=== PATIENT | female | born 1955 | race Caucasian/White ===

== ENCOUNTER → 2017-05-14 | Outpatient (CLI) | payer BC ==
[~2017-05-14] MED LIST: CLON0.5T3 PO; CLTP PO; CMD5 PO; CYM60 PO; HYDR12.55 OR; MEDLIST; OMEG10007 PO; OXYC-57 PO; OXYSR10 PO; [UNRECOGNIZED DRUG - OTHER] PO
[2017-05-14 09:29] LABS: BASO % 0.7 %; BASO ABS # 0.04 K/uL (0-0.2); COMPLETE YES; EOS % 1.5 %; HEMATOCRIT 40.6 % (37-47); IG% 0.2 %; LYMPH % 30.2 %; LYMPH ABS # 1.78 K/uL (1.2-3.4); MEAN CELL VOLUME 96.9 fL (80-100); MEAN CORPUSCULAR HEMOGLOBIN 33.2 pg (25-34); MEAN CORPUSCULAR HGB CONC 34.2 g/dl (32-36); MEAN PLATELET VOLUME 9.8 fL (7.4-10.4); MONO % 8.5 %; NEUT % 58.9 %; PLATELET COUNT 232 K/uL (130-400); RED BLOOD COUNT 4.19 M/uL (4.2-5.4); WHITE BLOOD COUNT 5.89 K/uL (4.8-10.8)
[2017-05-14 09:39] LABS: INR 0.9 (0.9-1.1); PROTHROMBIN TIME (PATIENT) 10.1 SECONDS (9.0-12.0)
--- NOTE | 2017-05-14 09:43 | DIAGNOSTIC IMAGING REPORT ---
FUSION CT SINUSES W/O CLINICAL HISTORY: 61 years-old Female presenting with chronic sinusitis, previous sinus surgery, bilateral sphenoid sinus mucosal thickening. TECHNIQUE: Multidetector CT of the sinuses was performed without the use of intravenous contrast. IV contrast: None. A dose lowering technique was used consistent with the principles of ALARA (as low as reasonably achievable). COMPARISON: 01/06/2013. CT DOSE (mGy.cm): The estimated cumulative dose is 634.05 mGy.cm. FINDINGS: Clinical Lab Clerk topogram: Unremarkable. Postsurgical changes of bilateral maxillary antrostomies. Ostiomeatal units widely patent bilaterally. Layering fluid in aerated secretions in the right maxillary sinus. Mild mucosal thickening in the left maxillary sinus. Mild mucosal thickening also noted in the sphenoid sinuses. Frontal sinuses and ethmoid air cells clear. Mastoid air cells clear. Nasal septum midline. Turbinates normal. Mild asymmetric sclerosis and wall thickening of the lateral wall of the right maxillary sinus likely indicates chronic inflammation. Orbits normal. No dehiscence of the optic canals. Limited intracranial evaluation within normal limits. Degenerative changes of the right temporomandibular joint. Upper cervical spine normal. IMPRESSION: 1. Layering aerated secretions in the right maxillary sinus could be compatible with acute sinusitis. Additional evidence of chronic sinusitis of the right maxillary sinus. 2. Postsurgical changes of bilateral maxillary antrostomies. 3. Scattered mucosal thickening in the sinuses as described above. Electronically signed by: Iglesia Herman M.D. 05/14/2017 9:42 AM Dictated Date/Time: 05/14/2017 9:34 AM
[2017-05-14 09:44] LABS: POTASSIUM 3.7 mmol/L (3.5-5.1)
--- NOTE | 2017-05-14 10:03 | DIAGNOSTIC IMAGING REPORT ---
CHEST 2 VIEWS ROUTINE CLINICAL HISTORY: Z01.818 Visit for pre-operative [id number] preoperative evaluation COMPARISON STUDY: No previous studies for comparison. FINDINGS: The bones soft tissues and hemidiaphragms are normal. The cardiomediastinal silhouette is normal. The lungs are clear. The pulmonary vasculature is normal. IMPRESSION: Negative chest. The above report was generated using voice recognition software. It may contain grammatical, syntax or spelling errors. Electronically signed by: Jaylan Eubanks M.D. 05/14/2017 10:01 AM Dictated Date/Time: 05/14/2017 10:00 AM
== END | disposition home or self-care (01) ==
LOC: C.CTS 09:00
DX: Z01.818 Encounter for other preprocedural examination (principal); J32.9 Chronic sinusitis, unspecified; J34.3 Hypertrophy of nasal turbinates

== ENCOUNTER → 2017-05-25 | Day surgery (SDC) | payer BC ==
[2017-05-20 07:54] VITALS: Ht 180.3 cm; Wt 65.5 kg
[~2017-05-25] VITALS: Ht 180.3 cm; Wt 65.5 kg
[~2017-05-25] MED LIST changes: +ATROPINE SULFATE 0.1 MG/ML 5ML SYR IV PRN; +CLINDAMYCIN PHOS 150 MG/ML 2 ML VIAL IV SCH; -CLTP PO; -CMD5 PO; +DEXAMETHASONE SOD INJ 4 MG/ML VIAL ONE; +EpHEDrine SULFATE 50MG/5ML SYR ONE; +EpHEDrine SULFATE INJ 50 MG/ML AMP IV PRN; +EpINEphrine INJ 1MG/ML AMP 1 MG/ML AMP ONE; +FENTANYL CITRATE INJ 50 MCG/1 ML 2 ML VIAL IV PRN; +FENTANYL CITRATE INJ 50 MCG/1 ML 2 ML VIAL ONE; +GLYCOPYRROLATE INJ 0.2 MG/ML VIAL ONE; -HYDR12.55 OR; +HYDROCODONE/ACETAMOPHEN 5/325MG TAB PO PRN; +LACTATED RINGER'S 1000ML 1,000 ML IV SCH; +LACTATED RINGER'S 1000ML 500 ML IV SCH; +LIDOCAINE 4% MPF SOAK 5 ML = 1 DOSE TOP ONE; +LIDOCAINE HCL 2% 2 ML VIAL (20MG/ML) ONE; +LIDOCAINE/EPINEPHRINE 1% INJ 50 ML VIAL ONE; -MEDLIST; +MIDAZOLAM HCL 1 MG/ML 2ML VIAL ONE; +NEOSTIGMINE METHYLSULFATE 5 MG/5 ML SYR ONE; +ONDANSETRON INJ 2 MG/ML 2 ML VIAL IV PRN; +ONDANSETRON INJ 2 MG/ML 2 ML VIAL ONE; -OXYC-57 PO; +OXYMETAZOLINE HCL 0.05% NA SPR 15 ML BTL PRN; +OXYMETAZOLINE HCL 0.05% NA SPR 15 ML BTL SCH; -OXYSR10 PO; +PROPOFOL IV EMULSION 10 MG/ML 20 ML VIAL IV ONE; -[UNRECOGNIZED DRUG - OTHER] PO
--- NOTE | 2017-05-25 06:35 | History & Physical Bridge - SC ---
H&P Re-Evaluation Bridge Note: I have examined the patient, reviewed the History & Physical and in the interval since the performance of the History & Physical I have noted the following changes of clinical significance: No changes noted
--- NOTE | 2017-05-25 07:38 | [facility] Operative Report ---
Operative Report Operative Date May 25, 2017. Pre-Operative Diagnosis Chronic Sinusitis, Hypertrophy of Nasal Turbinates Post-Operative Diagnosis Same Procedure(s) Performed Revision Image Guided Bilateral Endoscopic Sinus Surgery And Inferior Turbinate Reduction Surgeon Dr. Arora System Engineer Surgeon(s) None Estimated Blood Loss 5 mL Findings 1. SYNECHIA BETWEEN L MIDDLE TURBINATE AND LATERAL NASAL WALL BLOCKING PREVIOUS L MAXILLARY ANTROSTOMY AND ETHMOIDECTOMY 2. POLYPOID TISSUE IN L MAXILLARY SINUS 3. POLYPOID MUCOSAL THICKENING B ETHMOID SINUSES 4. MILD MUCOSAL THICKENING B SPHENOID SINUSES 5. B ITH Specimens A. Left Maxillary Sinus Contents I attest to the content of the Intraoperative Record and any orders documented therein. Any exceptions are noted below.
--- NOTE | 2017-05-25 07:40 | Discharge Instructions ---
Discharge Instructions Date of Service May 25, 2017. Admission Reason for Admission: Chronic Sinusitis, Hypertrophy Both Nasal Turbinat Discharge Discharge Diagnosis / Problem: SAME Discharge Goals Goal(s): Therapeutic intervention Activity Recommendations Activity Limitations: as noted below 1. LIGHT ACTIVITY FOR 2 WEEKS 2. NO DRIVING WHILE ON NORCO . Current Hospital Diet Patient's current hospital diet: Discharge Diet Recommended Diet: Regular Diet Procedures Procedures Performed: Revision Image Guided Bilateral Endoscopic Sinus Surgery And Inferior Turbinate Reduction Pending Studies Studies pending at discharge: no Medical Emergencies . Who to Call and When: Medical Emergencies: If at any time you feel your situation is an emergency, please call 911 immediately. . Non-Emergent Contact Non-Emergency issues call your: Surgeon . . "Provider Documentation" section prepared by Humble Arora. . VTE Core Measure Inpt VTE Proph given/why not?: SCD's
[2017-05-25 08:25] VITALS: TEMP 36.8
--- NOTE | 2017-05-25 08:54 | Anesthesia Progress Nt - [facility] ---
Anesthesia Post Op Note Date & Time May 25, 2017 at 08:54 Vital Signs Pain Intensity: 1 Vital Signs Past 12 Hours Date Time Temp Pulse Resp B/P (MAP) Pulse Ox O2 Delivery O2 Flow Rate FiO2 05/25/17 08:25 36.8 53 16 126/71 (89) 97 Room Air 05/25/17 08:17 57 17 05/25/17 08:17 57 17 96 05/25/17 08:16 57 17 119/73 97 05/25/17 08:16 57 17 05/25/17 08:11 57 18 97 05/25/17 08:11 57 18 05/25/17 08:10 126/74 05/25/17 08:10 36.7 94 Room Air 05/25/17 08:09 58 17 97 05/25/17 08:09 57 17 05/25/17 08:05 128/74 05/25/17 08:04 62 22 05/25/17 08:04 64 22 96 05/25/17 08:01 140/52 05/25/17 07:59 60 13 05/25/17 07:59 62 13 100 05/25/17 07:58 62 20 05/25/17 07:58 63 20 100 05/25/17 07:56 122/69 05/25/17 07:53 70 13 100 05/25/17 07:53 71 13 05/25/17 07:50 128/66 05/25/17 07:49 129/64 05/25/17 07:48 77 6 100 05/25/17 07:48 79 6 05/25/17 07:48 36.4 79 16 129/64 100 Mask 6 05/25/17 06:28 36.8 55 16 108/68 (81) 94 Room Air Notes Mental Status: alert / awake / arousable, participated in evaluation Pt Amnestic to Procedure: Yes Nausea / Vomiting: adequately controlled Pain: adequately controlled Airway Patency, RR, SpO2: stable & adequate BP & HR: stable & adequate Hydration State: stable & adequate Anesthetic Complications: no major complications apparent
[2017-05-25 09:01] VITALS: BP 107/68; PULSE 55; O2SAT 96
--- NOTE | 2017-05-25 10:31 | OPERATIVE REPORT ---
DATE OF OPERATION: 05/25/2017 PREOPERATIVE DIAGNOSES: 1. Chronic rhinosinusitis. 2. Bilateral inferior turbinate hypertrophy. POSTOPERATIVE DIAGNOSES: 1. Chronic rhinosinusitis. 2. Bilateral inferior turbinate hypertrophy. PROCEDURES: Revision [employer] fusion image guided bilateral endoscopic sinus surgery consisting of: 1. Revision left maxillary antrostomy with tissue removal. 2. Revision bilateral complete ethmoidectomy. 3. Bilateral sphenoidotomy. 4. Bilateral inferior turbinate outfracture and turbinoplasties. SURGEON: Dr. Humble Arora. ANESTHESIA: General endotracheal. ESTIMATED BLOOD LOSS: 5 mL. FINDINGS: 1. Synechia between left middle turbinate and lateral nasal wall blocking previous left maxillary antrostomy and ethmoid cavity. 2. Polypoid mucosal thickening within the left maxillary sinus. 3. Mucosal thickening involving the bilateral ethmoid and sphenoid sinuses. 4. Bilateral inferior turbinate hypertrophy. SPECIMENS: Left maxillary sinus contents for permanent pathological assessment. COMPLICATIONS: None. INDICATIONS FOR THE PROCEDURE: The patient is a 61-year-old female with a history of chronic sinusitis, status post bilateral endoscopic sinus surgery by another user experience analyst in the past as well as in-office balloon sinuplasty. She continues to have problems with recurrent acute and chronic sinusitis and has had 3 months of sinus pressure and pain along with fatigue, postnasal drip and cough. A posttreatment CT scan of the sinuses revealed bilateral maxillary and sphenoid sinus mucosal thickening. On endoscopic examination, she had a synechia between her left middle turbinate and lateral nasal wall. In addition, she has bilateral inferior turbinate hypertrophy and complaints of nasal airway obstruction. She presents for the above-mentioned procedures on an outpatient elective basis. DESCRIPTION OF PROCEDURE: After informed consent had been obtained from the patient, the patient was wheeled to the operating room and placed on the operating table in the supine position. Monitors were placed. After induction of general endotracheal anesthesia, the patient was prepped in the usual fashion for image guided sinus surgery. The [employer] fusion headset was placed over the forehead and was registered, calibrated, and verified and used for the sphenoid sinus portions of the case primarily. Lidocaine and epinephrine pledgets placed in the bilateral nasal cavities and pressure applied. Left-sided pledgets were first removed. There was a synechia between the left middle turbinate and lateral nasal wall blocking the left maxillary antrostomy and ethmoid cavity that was done in the past. The synechia was injected with 1% lidocaine with 1:100,000 epinephrine. Also, the middle turbinate and lateral nasal wall were injected with 1% lidocaine with 1:100,000 epinephrine. Lidocaine and epinephrine pledget was then placed in the left middle meatus. The right side was then addressed. There was no synechia on this side. The maxillary antrostomy was widely patent. The middle turbinate and lateral nasal wall were injected with 1% lidocaine with 1:100,000 epinephrine. A pledget was then placed into the right middle meatus. The left-sided pledget was removed. A freer elevator was used to lyse the synechia between the left middle turbinate and lateral nasal wall. Powered instrumentation was used to remove polypoid mucosal thickening and thick scar formation. A revision left maxillary antrostomy was then performed enlarging the natural ostium of the sinus anteriorly, inferiorly, and posteriorly using powered instrumentation. There was polypoid tissue within the inferior aspect of the left maxillary sinus and this was removed using a 45-degree Blakesley forceps. This tissue was sent off for permanent pathological assessment. A revision complete ethmoidectomy was then performed on the left hand side using powered instrumentation. Using a transethmoid approach, the left sphenoid sinus was entered and the natural ostia of the sphenoid sinus was enlarged medially and inferiorly using powered instrumentation. A pledget was then placed into the left ethmoid cavity. The right side was then addressed. A previous maxillary antrostomy was widely patent and the mucosa appeared to be completely normal. There was no evidence of purulence or polyposis within the sinus. There was polypoid mucosal thickening involving the right ethmoid sinus and therefore, revision complete ethmoidectomy was performed removing polypoid tissue from the right ethmoid sinus and trying to make all of the ethmoid air cells into one cavity. Similarly as on the left side, a right sphenoidotomy was performed and the medial and inferior aspect of the sphenoid sinus ostium was enlarged using powered instrumentation. A pledget was then placed into the right ethmoid cavity. A Miguel elevator was then used to infracture and subsequently outfracture the inferior turbinates bilaterally. These were injected with 1% lidocaine with 1:100,000 epinephrine. A 2.0-mm turbinate blade using powered instrumentation was then used to perform bilateral inferior turbinoplasties in a submucosal fashion. The sinonasal cavities and nasopharynx were then suctioned. Merogel was placed into the bilateral ethmoid cavity/middle meati. An orogastric tube was placed and the stomach was suctioned free of air and stomach contents. This marked the end of the case. The patient tolerated the procedure well. There were no apparent complications. The patient was extubated and transferred to recovery room in stable condition. I attest to the content of the Intraoperative Record and any orders documented therein. Any exception s are noted below.
== END | disposition home or self-care (01) ==
LOC: X.SURG 06:07
DX: J32.9 Chronic sinusitis, unspecified (principal); J34.3 Hypertrophy of nasal turbinates; J33.8 Other polyp of sinus; F41.9 Anxiety disorder, unspecified; Z90.710 Acquired absence of both cervix and uterus

== ENCOUNTER → 2017-12-31 | Outpatient (CLI) | payer BC ==
[~2017-12-31] MED LIST changes: -ATROPINE SULFATE 0.1 MG/ML 5ML SYR IV PRN; -CLINDAMYCIN PHOS 150 MG/ML 2 ML VIAL IV SCH; -DEXAMETHASONE SOD INJ 4 MG/ML VIAL ONE; -EpHEDrine SULFATE 50MG/5ML SYR ONE; -EpHEDrine SULFATE INJ 50 MG/ML AMP IV PRN; -EpINEphrine INJ 1MG/ML AMP 1 MG/ML AMP ONE; -FENTANYL CITRATE INJ 50 MCG/1 ML 2 ML VIAL IV PRN; -FENTANYL CITRATE INJ 50 MCG/1 ML 2 ML VIAL ONE; -GLYCOPYRROLATE INJ 0.2 MG/ML VIAL ONE; -HYDROCODONE/ACETAMOPHEN 5/325MG TAB PO PRN; -LACTATED RINGER'S 1000ML 1,000 ML IV SCH; -LACTATED RINGER'S 1000ML 500 ML IV SCH; -LIDOCAINE 4% MPF SOAK 5 ML = 1 DOSE TOP ONE; -LIDOCAINE HCL 2% 2 ML VIAL (20MG/ML) ONE; -LIDOCAINE/EPINEPHRINE 1% INJ 50 ML VIAL ONE; -MIDAZOLAM HCL 1 MG/ML 2ML VIAL ONE; -NEOSTIGMINE METHYLSULFATE 5 MG/5 ML SYR ONE; -OMEG10007 PO; -ONDANSETRON INJ 2 MG/ML 2 ML VIAL IV PRN; -ONDANSETRON INJ 2 MG/ML 2 ML VIAL ONE; -OXYMETAZOLINE HCL 0.05% NA SPR 15 ML BTL PRN; -OXYMETAZOLINE HCL 0.05% NA SPR 15 ML BTL SCH; -PROPOFOL IV EMULSION 10 MG/ML 20 ML VIAL IV ONE
[2017-12-31 12:48] LABS: BASO % 0.7 %; BASO ABS # 0.05 K/uL (0-0.2); EOS % 1.5 %; EOS ABS # 0.11 K/uL (0-0.5); HEMATOCRIT 41.5 % (37-47); IG# 0.02 K/uL (0.00-0.02); LYMPH % 35.7 %; LYMPH ABS # 2.57 K/uL (1.2-3.4); MEAN CELL VOLUME 94.7 fL (80-100); MEAN CORPUSCULAR HGB CONC 33.7 g/dl (32-36); MEAN PLATELET VOLUME 10.1 fL (7.4-10.4); MONO % 10.4 %; MONO ABS # 0.75 K/uL (0.11-0.59); NEUT % 51.4 %; PLATELET COUNT 292 K/uL (130-400); RED CELL DISTRIBUTION WIDTH CV 12.3 % (11.5-14.5); RED CELL DISTRIBUTION WIDTH SD 42.5 fL (36.4-46.3)
== END | disposition home or self-care (01) ==
LOC: C.LABMFLN 08:57
PROVIDERS: ATTEND Family Medicine
DX: R53.83 Other fatigue (principal); R74.8 Abnormal levels of other serum enzymes

== ENCOUNTER → 2018-01-28 | Outpatient (CLI) | payer BC ==
[2018-01-28 13:02] LABS: HEMATOCRIT 39.7 % (37-47); HEMOGLOBIN 13.6 g/dL (12.0-16.0); MEAN CELL VOLUME 93.6 fL (80-100); MEAN CORPUSCULAR HEMOGLOBIN 32.1 pg (25-34); MEAN CORPUSCULAR HGB CONC 34.3 g/dl (32-36); MEAN PLATELET VOLUME 10.1 fL (7.4-10.4); PLATELET COUNT 317 K/uL (130-400); RED CELL DISTRIBUTION WIDTH CV 12.7 % (11.5-14.5); WHITE BLOOD COUNT 5.99 K/uL (4.8-10.8)
[2018-01-28 13:25] LABS: PTT PATIENT 27.1 SECONDS (21.0-31.0)
[2018-01-28 13:30] LABS: BLOOD UREA NITROGEN 17 mg/dl (7-18); CALCIUM 9.1 mg/dl (8.5-10.1); CARBON DIOXIDE 30 mmol/L (21-32); CREATININE 0.72 mg/dl (0.60-1.20); GLUCOSE 94 mg/dl (70-99); POTASSIUM 4.4 mmol/L (3.5-5.1); SODIUM 137 mmol/L (136-145)
== END | disposition home or self-care (01) ==
LOC: C.LABMFLN 08:04
PROVIDERS: ATTEND Internal Medicine Clinical Cardiac Electrophysiology
DX: Z01.818 Encounter for other preprocedural examination (principal)

== ENCOUNTER → 2018-02-02 | Outpatient (CLI) | payer BC ==
[~2018-02-02] MED LIST changes: +ALBU18002 INH; +AZEL30SP NAE; +CHOL1000 PO; +CLR10 PO; +CYAN100020 PO; +DULO60CA44 PO; +FLUT0.15 INTNAS; +METO25TA56 PO; +MISCCAP80 PO; +PRLSR20 PO; +RESVERATROL PO; +TURM1CAP4 PO
--- NOTE | 2018-02-03 07:52 | MAMMOGRAPHY REPORT ---
BILATERAL DIGITAL SCREENING MAMMOGRAM TOMOSYNTHESIS WITH CAD: 02/02/2018 CLINICAL HISTORY: Routine screening. Patient has no complaints. TECHNIQUE: Breast tomosynthesis in addition to standard 2D mammography was performed. Current study was also evaluated with a Computer Aided Detection (CAD) system. COMPARISON: Comparison is made to exams dated: 09/17/2015 mammogram, 05/31/2013 mammogram, 01/21/2010 ammogram [facility], and 06/21/2009. BREAST COMPOSITION: The tissue of both breasts is heterogeneously dense, which may obscure small mas ses. FINDINGS: The left MLO view is suboptimal due to an implanted defibrillator and inability to include posterior tissue in the [id number]. Within this limitation, the glandular pattern is similar to p rior mammograms. No new suspicious mass, architectural distortion or cluster of microcalcifications is seen. IMPRESSION: ACR BI-RADS CATEGORY 1: NEGATIVE There is no mammographic evidence of malignancy. A 1 year screening mammogram is recommended. The pa tient will receive written notification of the results. Approximately 10% of breast cancers are not detected with mammography. A negative mammographic report should not delay biopsy if a clinically suggestive mass is present. Johanna Vaz M.D. ay/:02/02/2018 09:21:16 Death Clearance Coordinator: Juliana ROLDAN(Radha)(Tyree), [facility] letter sent: Normal 1/2 BI-RADS Code: ACR BI-RADS Category 1: Negative
== END | disposition home or self-care (01) ==
LOC: C.MAMM 08:16
PROVIDERS: ATTEND Family Medicine
DX: Z12.31 Encounter for screening mammogram for malignant neoplasm of breast (principal)

== ENCOUNTER 2018-02-11 06:02 | Day surgery (SDC) | payer BC ==
[2018-02-10 15:37] VITALS: BMI 22.0
[~2018-02-11] VITALS: Ht 175.3 cm; Wt 70.5 kg
[~2018-02-11 06:02] MED LIST changes: +CLINDAMYCIN 600 MG/54 ML D5W IV SCH; -CYM60 PO; +LACTATED RINGER'S 1000ML 1,000 ML IV SCH
[2018-02-11 06:31] VITALS: BP 157/81; PULSE 52; TEMP 36.6; O2SAT 99; Ht 175.3 cm; Wt 70.5 kg
[2018-02-11] MEDS ORDERED: PROPOFOL IV EMULSION 10 MG/ML 20 ML VIAL IV ONE (07:37)
[2018-02-11] MEDS ORDERED: LIDOCAINE HCL 2% 2 ML VIAL (20MG/ML) ONE (07:37)
[2018-02-11] MEDS ORDERED: FENTANYL CITRATE INJ 50 MCG/1 ML 2 ML VIAL ONE (07:38)
[2018-02-11] MEDS ORDERED: MIDAZOLAM HCL 1 MG/ML 2ML VIAL ONE (07:38)
[2018-02-11] MEDS ORDERED: LIDOCAINE/EPINEPHRINE 1% 20 ML VIAL ONE (07:48)
[2018-02-11] MEDS ORDERED: BUPIVACAINE/EPINEPHRINE 0.5% MPF 1:200,000 30 ML VIAL ONE (07:48)
[2018-02-11] MEDS ORDERED: HYDROmorphone INJ 2 MG/ML SYR/VIAL IV PRN (08:00)
[2018-02-11] MEDS ORDERED: ONDANSETRON INJ 2 MG/ML 2 ML VIAL IV PRN (08:00)
[2018-02-11] MEDS ORDERED: PHENYLEPHRINE 100MCG/ML 5ML SYR IV PRN (08:00)
[2018-02-11] MEDS ORDERED: EpHEDrine SULFATE INJ 50 MG/ML AMP IV PRN (08:00)
[2018-02-11] MEDS ORDERED: ATROPINE SULFATE 0.1 MG/ML 5ML SYR IV PRN (08:00)
--- NOTE | 2018-02-11 09:01 | Cardiology Procedure Brief Nt ---
Preliminary Cardiology Note Procedure Date Feb 11, 2018. Pre-Procedure Diagnosis VT Post-Procedure Diagnosis VT Procedure(s) Performed ICD pocket revision Picked Edge Sewing Machine Operator Margie Green Prize Packer(s) none Estimated Blood Loss 5cc Preliminary Findings Successful pocket revision to sub-pectoral location Recommendations per PACU protocol Specimens none Complication(s) None Disposition Recovery Room / PACU
[2018-02-11] MEDS ORDERED: RXC5 PO (09:19)
--- NOTE | 2018-02-11 09:21 | Discharge Instructions ---
Discharge Instructions Date of Service Feb 11, 2018. Admission Reason for Admission: Left Upper Shoulder Pain Discharge Discharge Diagnosis / Problem: Pocket revision Discharge Goals Goal(s): Decrease discomfort, Improve function Activity Recommendations Activity Limitations: resume your previous activity Lifting Limitations: none Exercise/Sports Limitations: none May Resume Sexual Activity: when tolerated Shower/Bathe: keep incision dry Driving or Machine Use: resume 1 day after discharge Keep wound dry and steri-strips intact until f/u. May remove outer bulky dressing in AM . Instructions / Follow-Up Instructions / Follow-Up f/u as previously arranged Current Hospital Diet Patient's current hospital diet: Discharge Diet Recommended Diet: Regular Diet Procedures Procedures Performed: Revision of Skin Pocket for Implantable Cardioverter Defibrillator Pending Studies Studies pending at discharge: no Medical Emergencies . Who to Call and When: Medical Emergencies: If at any time you feel your situation is an emergency, please call 911 immediately. . Non-Emergent Contact Non-Emergency issues call your: Superintendent Laundry Call Non-Emergent contact if: you have a fever, your pain is not controlled, wound has increased drainage, wound has increased redness . . "Provider Documentation" section prepared by Juan Diego Hanson. .
[2018-02-11 09:34] VITALS: BP 115/56; PULSE 51; TEMP 37.1; O2SAT 96
[2018-02-11] MEDS ORDERED: NURSING VERBAL MED ORDER ONE (10:00)
[2018-02-11] MEDS ORDERED: OXYCODONE HCL IR 5 MG TAB (IMMEDIATE RELEASE) ONE (10:00)
[2018-02-11 10:05] VITALS: BP 100/38; PULSE 55; O2SAT 94
--- NOTE | 2018-02-11 10:34 | Anesthesiology Progress Note ---
Anesthesia Post Op Note Date & Time Feb 11, 2018 at 10:34 Vital Signs Pain Intensity: 8 Vital Signs Past 12 Hours Date Time Temp Pulse Resp B/P (MAP) Pulse Ox O2 Delivery O2 Flow Rate FiO2 02/11/18 10:05 55 18 100/38 94 Room Air 02/11/18 09:34 37.1 51 18 115/56 96 Room Air 02/11/18 09:25 53 15 112/57 97 Room Air 02/11/18 09:20 36.2 51 20 124/66 97 Room Air 02/11/18 09:10 55 20 105/60 98 Room Air 02/11/18 09:04 36.4 54 16 124/57 100 Oxymask 10 02/11/18 06:31 36.6 52 16 157/81 (106) 99 Room Air Notes Mental Status: alert / awake / arousable, participated in evaluation Pt Amnestic to Procedure: Yes Nausea / Vomiting: adequately controlled Pain: adequately controlled Airway Patency, RR, SpO2: stable & adequate BP & HR: stable & adequate Hydration State: stable & adequate Anesthetic Complications: no major complications apparent
[2018-02-11 10:35] VITALS: BP 104/57; PULSE 57; TEMP 36.6; O2SAT 95
--- NOTE | 2018-02-11 13:46 | [facility] Operative Report ---
Operative Report Date of Service Feb 11, 2018. Operative Report Procedure performed: Pocket revision for dual-chamber ICD Staff student development coordinator: Raffi Marcano MD Indication: The patient is a 62-year-old woman who previously undergone implantation of a dual-chamber [employer] ICD. Patient was diagnosed with an idiopathic ventricular tachycardia. Due to the position of the device the patient has discomfort at the implant site as well as the left arm. After discussion in the outpatient setting she has elected undergo pocket revision in the hopes of relieving the symptoms. Procedure in detail: The patient was informed of the risks benefits and alternatives to the intended procedure. She understood such and wished to proceed. She was taken in a fasting state to the operative suite. Sedation was administered by the Anesthesiology Service and the patient was monitored electrocardiographically throughout today's procedure. A preoperative antibiotic was administered. The left upper pectoral area is prepped and draped in usual sterile fashion. This area was anesthetized using subcutaneous administration of lidocaine and Marcaine solution. An incision was made at this site and carried down to the previously implanted pulse generator. Electrocautery was employ for dissection as well as for hemostasis. The device and leads within free from the surrounding scar tissue. Additional anesthetic was then administered into the pectoralis muscle. Electrocautery and blunt dissection were used in order to create a subpectoral pocket. Subsequent to this maneuver the leads and device were placed in the pocket and secured with a single 0 silk suture. The muscle and subcutaneous tissues were then closed using 4 layers of absorbable suture. Steri-Strips and sterile dressing were applied. The device was tested noninvasively prior to conclusion the procedure. Patient tolerated the procedure well. There were no immediate complications. Impression: Successful pocket revision for dual-chamber ICD Device currently in a subpectoral location. I attest to the content of the Intraoperative Record and any orders documented therein. Any exceptions are noted below.
== END 2018-02-11 10:52 | disposition home or self-care (01) ==
LOC: C.ACU 06:02
PROVIDERS: ATTEND Internal Medicine Clinical Cardiac Electrophysiology
DX: T82.847A Pain due to cardiac prosthetic devices, implants and grafts, initial encounter (principal); I47.2 Ventricular tachycardia; Y84.8 Other medical procedures as the cause of abnormal reaction of the patient, or of later complication, without mention of misadventure at the time of the procedure; I25.10 Atherosclerotic heart disease of native coronary artery without angina pectoris; I10 Essential (primary) hypertension; Z87.891 Personal history of nicotine dependence; Z88.1 Allergy status to other antibiotic agents; Z82.49 Family history of ischemic heart disease and other diseases of the circulatory system

== ENCOUNTER → 2018-05-21 | Day surgery (SDC) | payer BC ==
[2018-05-18 08:27] VITALS: BMI 22.0
[~2018-05-21] VITALS: Ht 175.3 cm; Wt 69.5 kg
[~2018-05-21] MED LIST changes: +BISM262T3 PO; +CLAR250T PO; -CLINDAMYCIN 600 MG/54 ML D5W IV SCH; -CLON0.5T3 PO; -LACTATED RINGER'S 1000ML 1,000 ML IV SCH; +METR-163 PO; -MISCCAP80 PO; +PROPOFOL IV EMULSION 10 MG/ML 20 ML VIAL ONE
[2018-05-21 13:44] VITALS: Ht 175.3 cm; Wt 69.5 kg
--- NOTE | 2018-05-21 14:39 | Endo History and Physical ---
History & Physical Date of Service: May 21, 2018. Chief Complaint: PROLAPSE DIFFICULTY MOVING BOWELS Referring Physician: DR KING History of Present Illness For colonoscopy Past Surgical History Hx Cardiac Surgery: Yes (CARDIAC CATH NO STENT,ICD PLACEMENT-08/2017) Hx Internal Defibrillator: Yes (DEFIB 09/16/2017; REVISION SKIN POCKET 02/11/18 ) Hx Pacemaker: No Hx Abdominal Surgery: Yes (TUBAL LIGATION, PARTIAL HYSTERECTOMY 1 OVARY,GB SURG ) Hx of Implantable Prosthesis: No Hx Post-Op Nausea and Vomiting: No Hx Cancer Surgery: No Hx Thoracic Surgery: No Hx Orthopedic: Yes (RT TKA, LT/RT TOE SURGERY) Hx Urinary Tract Surgery: No Family History None Social History Smoking Status: Former Smoker Hx Substance Use: No Hx Alcohol Use: Yes (RARELY) Allergies Coded Allergies: Amoxicillin (Verified Allergy, Unknown, RASH, 05/21/18) Cephalexin (Verified Allergy, Unknown, HIVES, 05/21/18) Clavulanic Acid (Verified Allergy, Unknown, RASH, 05/21/18) Levofloxacin (Verified Allergy, Unknown, UNKNOWN, 05/21/18) Prochlorperazine (Verified Allergy, Unknown, DISORIENTED, 05/21/18) Current Medications Reported Home Medications Medications Dose Route/Sig Max Daily Dose Days Date Category Pepto Bismol Chew Tab (Bismuth Subsalicylate) 262 Mg Tab 1 Tab PO QID 05/18/18 Reported Clarithromycin 250 Mg Tab 1 Tab PO Q12 05/18/18 Reported Flagyl (Metronidazole) 500 Mg Tab 500 Mg PO BID 05/18/18 Reported Lopressor (Metoprolol Tartrate) 25 Mg Tab 12.5 Mg PO BID 02/10/18 Reported Proair Respiclick (Albuterol Sulfate) 108 Mcg/Act Aer 2 Puffs INH Q4-6H PRN 02/10/18 Reported Turmeric (Turmeric (Curcuma Longa)) 500 Mg Cap 500 Mg PO QAM 02/10/18 Reported [Resveratrol] 1 Tab PO QAM 02/10/18 Reported Vitamin D3 (Cholecalciferol) 1,000 Unit Tab 5,000 Units PO QAM 90 02/10/18 Reported Vitamin B12 (Cyanocobalamin) 1,000 Mcg Tab 1,000 Mcg PO QAM 02/10/18 Reported Prilosec (Omeprazole) 20 Mg Capcr 20 Mg PO BID 02/10/18 Reported Cymbalta (Duloxetine Hcl) 60 Mg Cap 60 Mg PO QAM 02/10/18 Reported Claritin (Loratadine) 10 Mg Tab 10 Mg PO QAM 02/10/18 Reported Dymista (Azelastine Hcl-Fluticasone Pro) 1 Spr Spr 1 [place] CORTEZ BID PRN 30 02/10/18 Reported Flonase Allergy Relief (Fluticasone Propionate (Nasal)) 50 Mcg/Act Spr 2 Sprays INTNAS BID 02/10/18 Reported Vital Signs Weight (Kilograms): 69.55 Height (Feet): 5 Height (Inches): 9 Date Time Temp Pulse Resp B/P (MAP) Pulse Ox O2 Delivery O2 Flow Rate FiO2 05/21/18 13:51 36.9 71 20 116/66 (83) 96 Room Air Physical Exam General Appearance: WD/WN Respiratory/Chest: Respiratory effort: no dyspnea Cardiovascular: Heart Auscultation: RRR Abdomen: Inspection & Palpation: soft Assessment and Plan Diarrhea for colonoscopy
--- NOTE | 2018-05-21 15:05 | Discharge Instructions ---
Endoscopy Patient Instructions Date / Procedure(s) Performed May 21, 2018. Colonoscopy Allergy Information Coded Allergies: Amoxicillin (Verified Allergy, Unknown, RASH, 05/21/18) Cephalexin (Verified Allergy, Unknown, HIVES, 05/21/18) Clavulanic Acid (Verified Allergy, Unknown, RASH, 05/21/18) Levofloxacin (Verified Allergy, Unknown, UNKNOWN, 05/21/18) Prochlorperazine (Verified Allergy, Unknown, DISORIENTED, 05/21/18) Discharge Date / Findings May 21, 2018. diverticulosis, polyps Medication Instructions Stopped Medication(s): VITAMINS Restart Stopped Medication(s): resume meds Reported Home Medications Medications Dose Route/Sig Max Daily Dose Days Date Category Pepto Bismol Chew Tab (Bismuth Subsalicylate) 262 Mg Tab 1 Tab PO QID 05/18/18 Reported Clarithromycin 250 Mg Tab 1 Tab PO Q12 05/18/18 Reported Flagyl (Metronidazole) 500 Mg Tab 500 Mg PO BID 05/18/18 Reported Lopressor (Metoprolol Tartrate) 25 Mg Tab 12.5 Mg PO BID 02/10/18 Reported Proair Respiclick (Albuterol Sulfate) 108 Mcg/Act Aer 2 Puffs INH Q4-6H PRN 02/10/18 Reported Turmeric (Turmeric (Curcuma Longa)) 500 Mg Cap 500 Mg PO QAM 02/10/18 Reported [Resveratrol] 1 Tab PO QAM 02/10/18 Reported Vitamin D3 (Cholecalciferol) 1,000 Unit Tab 5,000 Units PO QAM 90 02/10/18 Reported Vitamin B12 (Cyanocobalamin) 1,000 Mcg Tab 1,000 Mcg PO QAM 02/10/18 Reported Prilosec (Omeprazole) 20 Mg Capcr 20 Mg PO BID 02/10/18 Reported Cymbalta (Duloxetine Hcl) 60 Mg Cap 60 Mg PO QAM 02/10/18 Reported Claritin (Loratadine) 10 Mg Tab 10 Mg PO QAM 02/10/18 Reported Dymista (Azelastine Hcl-Fluticasone Pro) 1 Spr Spr 1 [place] CORTEZ BID PRN 30 02/10/18 Reported Flonase Allergy Relief (Fluticasone Propionate (Nasal)) 50 Mcg/Act Spr 2 Sprays INTNAS BID 02/10/18 Reported Provider Instructions Activity Restrictions - No exercising or heavy lifting for 24 hours. - Do not drink alcohol the day of the procedure. - Do not drive a car or operate machinery until the day after the procedure. - Do not make any important decisions or sign important papers in 24 hours after the procedure. Following Day: - Return to full activity which may include returning to work/school. Diet Start your diet with liquids and light foods (jello, soup, juice, toast). Then eat your usual diet if not nauseated. Treatment For Common After Affects For mild abdominal pain, bloating, or excessive gas: - Rest - Eat lightly - Lie on right side Follow-Up Information Follow-up with DR KING as scheduled Anesthesia Information What You Should Know You have had a procedure that required some medicine to reduce anxiety and discomfort. This treatment is called moderate sedation. After receiving the treatment, you may be sleepy, but you will be able to breathe on your own. The effects of the treatment may last for several hours. Follow these instructions along with Activity/Diet recommendations noted above: * Do NOT do anything where dizziness or clumsiness would be dangerous. * Rest quietly at home today, then you can be up and about tomorrow. * Have a responsible person stay with you the rest of today. * You may have had an I.V. today. If so, you may take the dressing off later today. Recommendations Call your doctor if: * Trouble breathing * Continuous vomiting for more than 24 hours * Temperature above 101 degrees * Severe abdominal pain or bloating * Pain not relieved by pain medicine ordered * There is increased drainage or redness from any incision * A large amount of rectal bleeding greater than 2-3 tablespoons. (If you had a polyp/s removed or have hemorrhoids, a small amount of blood - from the rectum is to be expected.) * You have any unanswered questions or concerns. IN THE EVENT OF A SERIOUS EMERGENCY, GO TO THE NEAREST EMERGENCY ROOM Your discharge instructions were prepared by provider Haider Washington. Patient Instructions Signature Page Trinidad Matt Patient (or Guardian) Signature/Date: I have read and understand the instructions given to me by my caregivers. Caregiver/RN/Doctor Signature/Date: The above-named patient and/or guardian has received patient instructions on this date. + Original Patient Signature Page (only) stays with chart. Please make copy for patient.
--- NOTE | 2018-05-21 15:10 | GI REPORT ---
Patient Name: Trinidad Matt Procedure Date: 05/21/2018 2:43 PM Date of : 1955 Admit Type: Outpatient Age: 62 Gender: Female Attending MD: Haider Washington MD Procedure: Colonoscopy Providers: Haider Washington MD Referring MD: Josiah Mcknight Indications: Clinically significant diarrhea of unexplained origin, Bloating Medicines: Propofol total dose 350 mg IV Complications: No immediate complications. Estimated Blood Loss: Estimated blood loss was minimal. Procedure: Pre-Anesthesia Assessment: - Prior to the procedure, a History and Physical was performed, and patient medications, allergies and sensitivities were reviewed. The patient's tolerance of previous anesthesia was reviewed. - The risks and benefits of the procedure and the sedation options and risks were discussed with the patient. All questions were answered and informed consent was obtained. After I obtained informed consent, the scope was passed under direct vision. Throughout the procedure, the patient's blood pressure, pulse, and oxygen saturations were monitored continuously. The scope was introduced through the anus and advanced to the terminal ileum. The colonoscopy was performed without difficulty. The patient tolerated the procedure well. The quality of the bowel preparation was excellent. Findings: The terminal ileum appeared normal. Biopsies were taken with a cold forceps for histology. Estimated blood loss was minimal. A few diverticula were found in the sigmoid colon. Two sessile polyps were found in the rectum. The polyps were 3 to 4 mm in size. These polyps were removed with a cold snare. Resection and retrieval were complete. Estimated blood loss: none. Normal mucosa was found in the entire colon. Biopsies for histology were taken with a cold forceps from the ascending colon, transverse colon and descending colon for evaluation of microscopic colitis. Estimated blood loss was minimal. Impression: - The examined portion of the ileum was normal. Biopsied. - Diverticulosis in the sigmoid colon. - Two 3 to 4 mm polyps in the rectum, removed with a cold snare. Resected and retrieved. - Normal mucosa in the entire examined colon. Biopsied. Recommendation: - Discharge patient to home (ambulatory). - Continue present medications. - Await pathology results. - Return to GI office as previously scheduled. Haider Washington M.D. Haider Washington MD 05/21/2018 3:10:08 PM This report has been signed electronically. Note Initiated On: 05/21/2018 2:43 PM Number of Addenda: 0 I attest to the content of the Intraoperative Record and orders documented therein, exceptions below {[id number]}
[2018-05-21 15:35] VITALS: BP 142/74; PULSE 68; O2SAT 97
--- NOTE | 2018-05-21 15:38 | Anesthesiology Progress Note ---
Anesthesia Post Op Note Date & Time May 21, 2018 at 15:38 Vital Signs Vital Signs Past 12 Hours Date Time Temp Pulse Resp B/P (MAP) Pulse Ox O2 Delivery O2 Flow Rate FiO2 05/21/18 13:51 36.9 71 20 116/66 (83) 96 Room Air Notes Mental Status: alert / awake / arousable, participated in evaluation Pt Amnestic to Procedure: Yes Nausea / Vomiting: adequately controlled Pain: adequately controlled Airway Patency, RR, SpO2: stable & adequate BP & HR: stable & adequate Hydration State: stable & adequate Anesthetic Complications: no major complications apparent
== END | disposition home or self-care (01) ==
LOC: C.GI 13:08
PROVIDERS: ATTEND Internal Medicine Gastroenterology
DX: R19.7 Diarrhea, unspecified (principal); K57.30 Diverticulosis of large intestine without perforation or abscess without bleeding; K62.1 Rectal polyp; Z87.891 Personal history of nicotine dependence; Z88.1 Allergy status to other antibiotic agents; Z88.8 Allergy status to other drugs, medicaments and biological substances; J45.909 Unspecified asthma, uncomplicated; I25.2 Old myocardial infarction; I25.10 Atherosclerotic heart disease of native coronary artery without angina pectoris; I10 Essential (primary) hypertension; Z95.0 Presence of cardiac pacemaker; K21.9 Gastro-esophageal reflux disease without esophagitis; F32.9 Major depressive disorder, single episode, unspecified

== ENCOUNTER → 2018-05-28 | Outpatient (CLI) | payer BC ==
[~2018-05-28] MED LIST changes: -PROPOFOL IV EMULSION 10 MG/ML 20 ML VIAL ONE
== END | disposition home or self-care (01) ==
LOC: C.LABMFLN 07:20
PROVIDERS: ATTEND Internal Medicine Gastroenterology
DX: R19.4 Change in bowel habit (principal)

== ENCOUNTER 2020-07-21 10:56 | Inpatient (IN) ==
--- NOTE | 2020-07-21 11:35 | Emergency Department Note ---
Impression & Plan Transaminitis, Back pain, Elevated bilirubin, Left leg weakness ED Provider Note NAME: RIGO BARAJAS AGE: 64 SEX: F : 1955 ARRIVES VIA: Walk-In INFORMANT: Patient ED PROVIDER(S): Nabil Escalera DO CHIEF COMPLAINT: Left back pain HPI: Patient is a 64-year-old female who presents the ER for left back pain. Starts in her lower gluteus tracking down to the left leg. Goes down the left lower leg to the foot. Patient denies any headache or neck pain. No chest pain or shortness of breath. She does have a pacemaker. She was evaluated at [facility] and had a CT performed and was discharged home morphine and gabapentin. She notes that she has some tingling in her left leg and no wher groin. Denies any dysuria urgency or frequency. She is able to void and move her bowels about difficulty. ROS: See above HPI for pertinent positives & negatives. A total of 10 systems reviewed and were otherwise negative. PAST MEDICAL HISTORY:See Below PAST SURGICAL HISTORY:See Below FAMILY HISTORY:See Below SOCIAL HISTORY:See Below HOME MEDICATIONS:See Below ALLERGIES:See Below VITALS:See Below PHYSICAL EXAMINATION: GENERAL: Sitting up in bed, alert, well appearing, well nourished, no distress, non-toxic EYE EXAM: normal conjunctiva. PERRL and EOM's grossly intact. OROPHARYNX: no exudate, no erythema, lips, buccal mucosa, and tongue normal and mucous membranes are moist NECK: supple, no nuchal rigidity, no adenopathy, non-tender LUNGS: Clear to auscultation. Normal chest wall mechanics HEART: no murmurs, S1 normal and S2 normal ABDOMEN: abdomen soft, non-tender, normo-active bowel sounds, no masses, no rebound or guarding. BACK: Back is symmetrical on inspection and there is no deformity, no midline tenderness, no CVA tenderness. SKIN: no rashes and no bruising UPPER EXTREMITIES: upper extremities are grossly normal. LOWER EXTREMITIES: Flexion and extension of the hips, knees, ankles, and EHL 5/5 bilaterally. Gross sensation is intact. DPs are 2/4 bilateral. Unable to obtain patellar or Achilles reflexes as patient will not relax NEURO EXAM: Normal sensorium, cranial nerves II-XII grossly intact, normal speech, no gross weakness of arms, no gross weakness of legs. MEDICAL DECISION MAKING: Patient is a 64-year-old female who presents the ER for severe left leg pain and back pain. Seen and evaluated at [facility] placed on morphine and gabapentin. Pain is been present since this past Thursday. IV was established blood work was obtained. Labs show no significant leukocytosis or anemia. BMP was unremarkable. Bilirubin was elevated at 1.3 and LFTs were elevated 236 and 336. Lipase was normal. UA was slightly contaminated with epithelial cells. CT lumbar spine shows a stenosis and disc protrusion and CT abdomen pelvis was unremarkable. Previous cholecystectomy. Patient was given IV fluids and IV morphine as well as IV steroids. She was updated bedside. With the transaminitis and elevated bilirubin concern for possible obstruction although she is otherwise asymptomatic from the standpoint. LFTs have never been this time before in the past as she has ran in the low 100s. Do not believe that exam is consistent with cauda equina would prefer to perform an MRI but unable as she has a pacer. Will likely benefit from spine eval. Discussed with hospitalist for further evaluation. Triage Nursing notes reviewed. Prior medical records reviewed Vital Signs: reviewed and remarkable for no significant abnormalities Differential diagnosis: Differential diagnoses includes but is not limited to lumbar radiculopathy, kidney stone, muscle strain, facture, cauda equina, mass, and disc herniation. ER treatment provided: See below Diagnostics interpreted by me: ECG: none Cardiac Monitoring: An order was placed for continuous cardiac monitoring. The monitor shows a rate of 63 with sinus rhythm. Laboratory studies: As stated above and show below. Imaging studies: CT abdomen pelvis was unremarkable CT lumbar spine shows stenosis with disc protrusion Consultation(s): Discussed with Dr. John Arias for further evaluation ED COURSE: Procedures: none Critical Care: None Past Med/Surg History Medical History (Updated 07/21/20 @ 15:43 by Nabil Escalera DO) Abnormal CT scan, pelvis Adnexal cyst Allergic rhinitis Anxiety Anxiety Atypical chest pain Chronic diarrhea Chronic sinusitis Dark stools Depression Diarrhea Elevated liver enzymes Enterocele Former smoker Gastritis GERD (gastroesophageal reflux disease) H. pylori infection Headache Hemorrhoids History of colon polyps History of ventricular tachycardia 08/2017--etiology unknown, follows with Dr. Hanson Hyperlipidemia Hypertension Hypertrophy of both inferior nasal turbinates Hypokalemia Hypomagnesemia ICD (implantable cardioverter-defibrillator) in place 08/2017--[employer] "relocated twice", last 10/2018--all wires changed at this time, "has fired several times, last time end of oct 2018" ICD (implantable cardioverter-defibrillator) in place Incomplete defecation Left shoulder pain Left shoulder pain Migraine Night sweats Pacemaker Recent heart attack Restless legs syndrome Unspecified ovarian cyst, unspecified side Ventricular tachycardia Surgical History H/O hysterectomy with unilateral oophorectomy removed appendix at same time History of appendectomy History of bilateral tubal ligation History of cardiac cath 2016 @ [facility]--no stents History of cholecystectomy History of colonoscopy History of endoscopic sinus surgery x3 History of tonsillectomy History of tooth extraction History of total right knee replacement (TKR) History of wisdom tooth extraction S/P foot surgery, left multiple S/P foot surgery, right multiple Family History Father Family history of diabetes mellitus Other No family history of adverse response to anesthesia Social History (Updated 02/08/20 @ 23:48 by Josiah Mcknight DO) Smoking Status: Current every day smoker Cigarettes Per Day: less than 1/2 pack a day; Second Hand Exposure: No; Do You Dip or Chew Tobacco: No; Tobacco Cessation Education Requested by Patient: No Hx Alcohol Use: Yes Alcohol type: beer and wine Hx Substance Use: Yes Substance Use Type Other:: morphine 15 mg Preferred Language: [place] Communication Ability: Effective Visual Impairment: No Limitations Hearing Ability: Normal Receiving Associate Required: No Beliefs That Will Affect Care: None Current Living Situation: Spouse Current Living Situation Comment: Lives with and adult son current occupational status: retired Other Information That Helps Us Care for You: No Feels Safe at Home: Yes Safety Concerns: Feels Safe At This Time Physical Activity Frequency: Daily Assistive Devices: Denture - Upper and Glasses Allergies Allergies Allergy/AdvReac Type Severity Reaction Status Date / Time levofloxacin Allergy Severe per Verified 07/21/20 12:17 heel cementer to list for allergy d/t ? Vtach prochlorperazine Allergy Mild DISORIENTED Verified 07/21/20 12:17 amoxicillin Allergy Unknown RASH Verified 07/21/20 12:17 cephalexin Allergy Unknown HIVES Verified 07/21/20 12:17 clavulanic acid Allergy Unknown RASH Verified 07/21/20 12:17 Home Meds Home Medications Medication Instructions Recorded Confirmed sotalol 120 mg PO Q12 12/12/19 07/21/20 azelastine 2 spray INTRANASAL QAM 07/21/20 07/21/20 duloxetine [Cymbalta] 20 mg PO QAM 07/21/20 07/21/20 gabapentin 100 mg PO TID 07/21/20 07/21/20 morphine 15 mg PO Q4H PRN 07/21/20 07/21/20 mupirocin 1 appln TOP BID PRN 07/21/20 07/21/20 Previous Rx's Medication Instructions Recorded loratadine 10 mg tablet 10 mg PO QAM #90 tab 05/09/19 ondansetron 4 mg PO Q6H PRN #12 tab 12/12/19 [id number] 1 tab PO Q4H PRN #30 tab 12/16/19 50 mg-325 mg-40 mg tablet duloxetine 60 mg capsule,delayed 60 mg PO QAM #90 cap 12/26/19 release albuterol sulfate 90 mcg/actuation 2 puff INHALATION Q6H PRN #8 gm 02/08/20 aerosol inhaler omeprazole 20 mg capsule,delayed 20 mg PO BID #180 cap 03/26/20 release methocarbamol 500 mg tablet 500 mg PO BID #60 tab 07/05/20 Results & Data (ED) Vital Signs Vital Signs - 24 hr 07/21/20 10:59 07/21/20 11:39 07/21/20 11:42 Temperature 36.7 C Temperature Source Oral Pulse Rate 98 H 79 79 Pulse Rate [Right Finger] Pulse Rate from SpO2 Sensor 79 77 Respiratory Rate 20 15 20 Respiratory Effort / Characteristics Non-Labored Spontaneous Respiratory Depth Normal Respiratory Pattern Regular Blood Pressure 101/62 122/78 Blood Pressure [Right Arm] Blood Pressure Mean 75 85 Blood Pressure Mean [Right Arm] Pulse Oximetry 94 98 100 Oxygen Delivery Method Room Air Sepsis Recent Fever Within 48 Hours No Sepsis New/Unexplained Change in Mental Status No Sepsis Action Taken by Nursing No Action Required 07/21/20 12:00 07/21/20 12:10 07/21/20 12:26 Temperature Temperature Source Pulse Rate 78 80 Pulse Rate [Right Finger] 80 Pulse Rate from SpO2 Sensor 80 80 Respiratory Rate 20 20 Respiratory Effort / Characteristics Non-Labored Respiratory Depth Normal Respiratory Pattern Blood Pressure 106/63 108/63 Blood Pressure [Right Arm] 108/63 Blood Pressure Mean 82 80 Blood Pressure Mean [Right Arm] 78 Pulse Oximetry 93 94 Oxygen Delivery Method Room Air Room Air Sepsis Recent Fever Within 48 Hours Sepsis New/Unexplained Change in Mental Status Sepsis Action Taken by Nursing 07/21/20 12:30 07/21/20 13:12 07/21/20 13:30 Temperature Temperature Source Pulse Rate 84 74 76 Pulse Rate [Right Finger] Pulse Rate from SpO2 Sensor 85 Respiratory Rate 14 12 23 Respiratory Effort / Characteristics Respiratory Depth Respiratory Pattern Blood Pressure 106/50 L Blood Pressure [Right Arm] Blood Pressure Mean 89 Blood Pressure Mean [Right Arm] Pulse Oximetry 92 Oxygen Delivery Method Sepsis Recent Fever Within 48 Hours Sepsis New/Unexplained Change in Mental Status Sepsis Action Taken by Nursing 07/21/20 14:00 07/21/20 14:16 07/21/20 14:17 Temperature Temperature Source Pulse Rate 77 70 Pulse Rate [Right Finger] 72 Pulse Rate from SpO2 Sensor 70 Respiratory Rate 24 20 15 Respiratory Effort / Characteristics Non-Labored Respiratory Depth Normal Respiratory Pattern Blood Pressure 116/64 Blood Pressure [Right Arm] 116/64 Blood Pressure Mean 80 Blood Pressure Mean [Right Arm] 81 Pulse Oximetry 92 91 Oxygen Delivery Method Room Air Sepsis Recent Fever Within 48 Hours Sepsis New/Unexplained Change in Mental Status Sepsis Action Taken by Nursing 07/21/20 14:30 07/21/20 15:00 Temperature Temperature Source Pulse Rate 72 66 Pulse Rate [Right Finger] Pulse Rate from SpO2 Sensor 72 66 Respiratory Rate 21 18 Respiratory Effort / Characteristics Respiratory Depth Respiratory Pattern Blood Pressure 132/77 105/62 Blood Pressure [Right Arm] Blood Pressure Mean 87 86 Blood Pressure Mean [Right Arm] Pulse Oximetry 93 90 Oxygen Delivery Method Sepsis Recent Fever Within 48 Hours Sepsis New/Unexplained Change in Mental Status Sepsis Action Taken by Nursing Laboratory Data Result diagrams: 07/21/20 11:25 07/21/20 11:25 Lab Results 07/21/20 07/21/20 07/21/20 Range/Units 11:25 11:25 12:30 WBC 10.27 (4.8-10.8) K/uL RBC 4.57 (4.2-5.4) M/uL Hgb 14.8 (12.0-16.0) g/dL Hct 44.0 (37-47) % MCV 96.3 (80-100) fL MCH 32.4 (25-34) pg MCHC 33.6 (32-36) g/dL RDW Std Deviation 43.3 (36.4-46.3) fL RDW Coeff of Liz 12.3 (11.5-14.5) % Plt Count 213 (130-400) K/uL MPV 10.0 (7.4-10.4) fL Immature Gran % (Auto) 0.2 % Neut % (Auto) 70.9 % Lymph % (Auto) 16.7 % Colbert % (Auto) 11.2 % Eos % (Auto) 0.7 % Baso % (Auto) 0.3 % Neut # (Auto) 7.28 H (1.4-6.5) K/uL Lymph # (Auto) 1.72 (1.2-3.4) K/uL Colbert # (Auto) 1.15 H (0.11-0.59) K/uL Eos # (Auto) 0.07 (0-0.5) K/uL Baso # (Auto) 0.03 (0-0.2) K/uL Immature Gran # (Auto) 0.02 (0.00-0.02) K/uL Sodium 136 (136-145) mmol/L Potassium 3.6 (3.5-5.1) mmol/L Chloride 99 (98-107) mmol/L Carbon Dioxide 30 (21-32) mmol/L Anion Gap 7.0 (3-11) BUN 13 (7-18) mg/dl Creatinine 0.74 (0.6-1.2) mg/dl Est Cr Clr Drug Dosing Not Reportable Est GFR ( Amer) 97.8 Est GFR (Non-Af Amer) 84.4 BUN/Creatinine Ratio 17.4 (10-20) Glucose 143 H (70-99) mg/dl Calcium 9.0 (8.5-10.1) mg/dl Total Bilirubin 1.3 H (0.2-1) mg/dl AST 236 H (15-37) U/L ALT 336 H (12-78) U/L Alkaline Phosphatase 87 (45-117) U/L Total Protein 7.7 (6.4-8.2) gm/dl Albumin 3.6 (3.4-5.0) gm/dl Globulin 4.1 H (2.5-4.0) gm/dl Albumin/Globulin Ratio 0.9 (0.9-2) Lipase 103 (73-393) U/L Urine Color [place] Urine Appearance Cloudy A (Clear) Urine pH 5.0 (4.5-7.5) Ur Specific [place] 1.021 (1.000-1.030) Urine Protein Trace H (Negative) Urine Glucose (UA) Negative (Negative) Urine Ketones Trace H (Negative) Urine Blood 2+ H (Negative) Urine Nitrite Negative (Negative) Urine Bilirubin Negative (Negative) Urine Urobilinogen Negative (Negative) Ur Leukocyte Esterase Trace H (Negative) Urine WBC (Auto) 1-5 (0-5) /hpf Urine RBC (Auto) 5-10 H (0-4) /hpf U Hyaline Cast (Auto) 1-5 (0-5) /lpf U Epithel Cells (Auto) 5-10 H (0-5) /lpf Urine Bacteria (Auto) 1+ H (Negative) Other Crystals Talc (None Prsent) Urine Mucus Present A (None Prsent) Administered Medications Discontinued Medications Dexamethasone (Dexamethasone Sod Inj 10 Mg/Ml Vial) 10 mg IV NOW ONE Stop: 07/21/20 11:57 Last Admin: 07/21/20 12:19 Dose: 10 mg Documented by: [id number] Ioversol (Ioversol 100ml) 94 ml IV ONCE ONE Stop: 07/21/20 12:39 Last Admin: 07/21/20 12:38 Dose: 94 ml Documented by: [id number] Morphine Sulfate (Morphine Sulfate 10 Mg/Ml Carp/Vial) 6 mg IV NOW STA Stop: 07/21/20 11:57 Last Admin: 07/21/20 12:19 Dose: 6 mg Documented by: [id number] Ondansetron HCl (Ondansetron Inj 2 Mg/Ml 2 Ml Vial) 4 mg IV NOW STA Stop: 07/21/20 11:57 Last Admin: 07/21/20 12:19 Dose: 4 mg Documented by: [id number] Discharge Plan Visit Data Chief Complaint: Pain (Generalized) Stated Complaint: SEVERE PAIN CANT MOVE LEFT SIDE OF BODY,DIZZY ED Provider: Nabil Escalera Discharge Problem: Transaminitis, Back pain, Elevated bilirubin, Left leg weakness Forms Stand Alone Forms: [facility] Prescriptions Prescriptions: No Action ueiywsmjum-xiftgxhrsdovc-lqvz 50-325-40 mg tablet 1 tab PO Q4H PRN (Reason: headache) Qty: 30 RF: 3 duloxetine [Cymbalta] 60 mg capsule,delayed release(DR/EC) 60 mg PO QAM Qty: 90 RF: 1 omeprazole 20 mg capsule,delayed release(DR/EC) 20 mg PO BID Qty: 180 RF: 3 methocarbamol 500 mg tablet 500 mg PO BID Qty: 60 RF: 0 loratadine 10 mg tablet 10 mg PO QAM Qty: 90 RF: 3 albuterol sulfate [ProAir HFA] 90 mcg/actuation HFA aerosol inhaler 2 puff INHALATION Q6H PRN (Reason: Shortness Of Breath) Qty: 8 RF: 5 sotalol 120 mg tablet 120 mg PO Q12 RF: 0 ondansetron 4 mg tablet,disintegrating 4 mg PO Q6H PRN (Reason: nausea and vomiting) Qty: 12 RF: 0 gabapentin 100 mg capsule 100 mg PO TID RF: 0 morphine 15 mg tablet 15 mg PO Q4H PRN (Reason: Severe Pain (Scale Score 7-10)) RF: 0 mupirocin 2 % ointment 1 appln TOP BID PRN (Reason: .) RF: 0 azelastine 137 mcg (0.1 %) aerosol,spray 2 spray INTRANASAL QAM RF: 0 duloxetine [Cymbalta] 20 mg capsule,delayed release(DR/EC) 20 mg PO QAM RF: 0 Discharge Problem: Back pain Qualifiers: Back pain location: low back pain Chronicity: acute Back pain laterality: left Sciatica presence: with sciatica Sciatica laterality: sciatica of left side Qualified Code(s): M54.42 - Lumbago with sciatica, left side
[2020-07-21 11:36] LABS: Basophils # (auto) 0.03 K/uL (0-0.2); Basophils % (auto) 0.3 %; Eosinophils # (auto) 0.07 K/uL (0-0.5); Eosinophils % (auto) 0.7 %; Hemoglobin 14.8 g/dL (12.0-16.0); Immature Granulocytes # (auto) 0.02 K/uL (0.00-0.02); Immature Granulocytes % (auto) 0.2 %; Lymphocytes # (auto) 1.72 K/uL (1.2-3.4); Lymphocytes % (auto) 16.7 %; Mean Corpuscular Hemoglobin 32.4 pg (25-34); Mean Corpuscular Hgb Conc 33.6 g/dL (32-36); Mean Corpuscular Volume 96.3 fL (80-100); Monocytes # (auto) 1.15 K/uL (0.11-0.59); Monocytes % (auto) 11.2 %; Neutrophils # (auto) 7.28 K/uL (1.4-6.5); Neutrophils % (auto) 70.9 %; Platelet Count 213 K/uL (130-400); RDW Coefficient of Variation 12.3 % (11.5-14.5); RDW Standard Deviation 43.3 fL (36.4-46.3); Red Blood Count 4.57 M/uL (4.2-5.4); White Blood Count 10.27 K/uL (4.8-10.8)
[2020-07-21 11:55] LABS: Alanine Aminotransferase 336 U/L (12-78); Albumin Level 3.6 gm/dl (3.4-5.0); Aspartate Aminotransferase 236 U/L (15-37); BUN Creatinine Ratio 17.4 (10-20); Blood Urea Nitrogen 13 mg/dl (7-18); Carbon Dioxide 30 mmol/L (21-32); Chloride 99 mmol/L (98-107); Est GFR (African American) 97.8; Est GFR (Non-African American) 84.4; Glucose 143 mg/dl (70-99); Lipase 103 U/L (73-393); Potassium 3.6 mmol/L (3.5-5.1); Sodium 136 mmol/L (136-145)
[2020-07-21] MEDS ORDERED: MoRPHine SULFATE 10 MG/ML CARP/VIAL IV STA (11:56)
[2020-07-21] MEDS ORDERED: DEXAMETHASONE SOD INJ 10 MG/ML VIAL IV ONE (11:56)
[2020-07-21] MEDS ORDERED: ONDANSETRON INJ 2 MG/ML 2 ML VIAL IV STA (11:56)
[2020-07-21 11:58] LABS: Albumin Globulin Ratio 0.9 (0.9-2); Alkaline Phosphatase 87 U/L (45-117); Bilirubin,Total 1.3 mg/dl (0.2-1); Globulin 4.1 gm/dl (2.5-4.0); Total Protein 7.7 gm/dl (6.4-8.2)
[2020-07-21] MEDS ORDERED: IOVERSOL 100ml IV ONE (12:38)
[2020-07-21 12:40] LABS: Appearance Urine Cloudy (Clear); Blood Urine 2+ (Negative); Color Urine Orange; Glucose Urine UA Negative (Negative); Ketones Urine Trace (Negative); Leukocyte Esterase Urine Trace (Negative); Nitrite Urine Negative (Negative); Protein Urine Trace (Negative); Specific Gravity Urine 1.021 (1.000-1.030); Urobilinogen Urine Negative (Negative)
--- NOTE | 2020-07-21 12:49 | CT Scan Report ---
LUMBAR SPINE CT CT DOSE: HISTORY: Back pain radiating down left leg TECHNIQUE: Multiaxial CT images of the lumbar spine were performed and reformatted in the sagittal an d coronal plane without the use of contrast. A dose lowering technique was utilized adhering to the principles of ALARA. COMPARISON: None. FINDINGS: Levoscoliosis of the lumbar spine. No fracture or subluxation. The visualized sacrum appear s intact. Moderate to severe disc space narrowing at L2-L3. Mild disc space narrowing at L3-L4 and L4 -L5. Mxwf-mr-upmmtcsc facet degenerative changes within the lumbar spine most pronounced at the L3-L4 level. Moderate central canal narrowing at L3-L4 due to a broad-based posterior disc bulge and ligam entum and facet hypertrophy. There is also moderate right and mild left neural foraminal narrowing at this level. Mild central canal and mild bilateral neural foraminal narrowing at L4-L5. There is mild central canal narrowing at L2-L3 due to the disc bulge and facet hypertrophy. IMPRESSION: 1. No fracture or subluxation within the lumbar spine. 2. Degenerative changes as described above. 3. Levoscoliosis. ACT 112: Negative or not required by law. Electronically signed by: Frank Ramirez M.D. 07/21/2020 12:47 PM
[2020-07-21 12:54] LABS: Bilirubin Urine Negative (Negative); Ictotest Urine Negative (Negative)
--- NOTE | 2020-07-21 12:54 | CT Scan Report ---
ABDOMEN AND PELVIS CT WITH IV CONTRAST CT DOSE: 310.51 mGy.cm HISTORY: Elevated LFTs and bilirubin. Left hip pain. TECHNIQUE: Multiaxial CT images of the abdomen and pelvis were performed following the use of intrave nous contrast. A dose lowering technique was utilized adhering to the principles of ALARA. COMPARISON STUDY: Abdomen and pelvis CT 05/17/2019. FINDINGS: Mild elevation of the left hemidiaphragm. The lung bases are clear. Pacemaker wires are not ed. No pneumoperitoneum. No pneumatosis. No fractures within the visualized osseous structures. Small fat-containing umbilical hernia. Stable hypodense lesions within the right hepatic lobe. These likel y represent cysts. Slight prominence of the biliary system is likely due to the patient's postcholecy stectomy state. This is also unchanged. The pancreas, spleen, and adrenal glands are unremarkable. No retroperitoneal lymphadenopathy. There is a left retroaortic renal vein. Normal caliber abdominal ao rta. The bladder is not well-distended. The uterus is surgically absent. Colonic diverticulosis. No e vidence for acute diverticulitis. No bowel wall thickening or obstruction. The appendix is not identi fied and reportedly surgically absent. Moderate well-formed stool seen throughout the majority of the colon. No hydronephrosis. IMPRESSION: 1. No bowel wall thickening or obstruction. 2. Cholecystectomy, hysterectomy, and appendectomy. 3. Colonic diverticulosis. No evidence for acute diverticulitis. 4. No hydronephrosis. ACT 112: Negative or not required by law. Electronically signed by: Frank Ramirez M.D. 07/21/2020 12:52 PM
[2020-07-21 12:56] LABS: Bacteria Urine Automated 1+ (Negative); Mucus Urine Present (None Prsent)
--- NOTE | 2020-07-21 15:09 | History & Physical Report ---
Date of Service July 21, 2020 Assessment & Plan (1) Back pain: 64yo C female presenting with acute on chronic LBP, new symptoms of numbness/tingling. CT of the lumbar spine with extensive degenerative changes, disc space narrowing and canal stenosis at L3-L4 due to a broad-based posterior disc bulge. Patient was administered Dexamethasone 10mg IV and Morphine in the ER with some improvement in pain. No bowel or bladder complaints. Paresthesias suggest involvement of L3, L4 nerve root. -Admit to medical floor -Toradol 15mg IV q 6 hours PRN -Lidoderm patch -Oxy IR 5mg PO q 4 hours as needed -Morphine 2mg IV q 4 hours as needed -Continue ho9me methocarbamol 500mg po BID -Will stop Gabapentin -Avoid Tylenol until level comes back -Heating pad to back -PT/OT evaluation Present on Admission?: Yes (2) Abnormal LFTs: Patient with elevated liver studies - EYZ=822, CYO=160, Tbili-1.3. AP is normal as are Albumin, Plt and Na. No history of EtOH. Patient reports that she has had elevated LFTs in the past - has not been worked up further. CT of the abdomen with stable hypodense lesions in the liver - most likely cysts as well as prominence of the biliary system possibly secondary to patient's post- romie state which is unchanged from previous studies. -Check Tylenol level -Check acute hepatitis panel -Check Ferritin -Check RUQUS -Repeat LFTs in AM -Patient with AICD in place - may not be able to get MRCP. If RUQUS is abnormal or LFTs worsen would consult GI for possible ERCP Present on Admission?: Yes (3) Ventricular tachycardia: Patient with VT arrest in 2017, AICD in place now. No discharges reported. Patient has not been contacted by the service to report arrhythmia. She was seen by Cardiology following ablation - per their note, patient DOES NOT have CAD but she has a NICM most consistent with cardiac sarcoid which has not been proven definitively. She follows routinely with Dr. Cartagena from [facility]. -Noted -Continue Sotalol 120mg po BID -Maintain electrolytes -Avoid arrhythmogenic agents, QT prolonging agents where possible -Additional workup for NICM, possible cardiac sarcoidosis to be deferred to outpatient graduate nurse Present on Admission?: Yes (4) Hypertension: Blood pressure well controlled. Currently not on any antihypertensives -Continue to monitor Present on Admission?: Yes (5) Depression: Chronic. Well controlled -Continue Cymbalta Present on Admission?: Yes (6) GERD (gastroesophageal reflux disease): Chronic. -Continue Omeprazole 20mg po BID F/E/N - NSS at 80mL/hr x 2 liters, monitor electrolytes and replete as needed, AHA/High fiber diet Ppx - Low risk for DVT, encourage ambulation, continue Omeprazole Code - Full per discussion with patient Dispo - Admit to medical History of Present Illness Chief Complaint: Low back pain, abnormal LFTs Primary Care Provider: Josiah Mcknight DO Romy Barajas is a 64yo C female with history of HTN, VT arrest s/p cardioversion, ablation, AICD in place. She presents today with complaints of severe low back pain, progressively worsening over the last 6 days. Pain is located in the left lower back above buttock with radiation down her lower leg. She had worsening pain this AM as well as tingling in her genitals and diminished sensation from the knee to ankle on the medial side of LLE. No falls, no trauma, no fever. She reports that her gait is unsteady and she needs to walk with support. Patient has chronic constipation and difficulty with bowel motility and incomplete emptying - she is being [place] [facility] [place]. She completed a Pelvic Floor PT program at [facility] and is currently being seen [place] [facility] [place]. She reports that her constipation and bowels are stable - no bowel incontinence or retention. She denies urinary symptoms of dysuria/frequency/urgency/incontinence or retention. She was seen in the ER in [place] with acute back pain on and was given a short supply of Gabapentin 100mg po TID and Morphine 15mg po TID PRN. She has been taking these medications as well as Tylenol - reports taking at least 2 ES Tylenol daily. No additional complaints at this time. No Covid-19 concerns. Patient's daughter tested positive for Covid in April and has since recovered. Patient did not contract the illness. ER Course: Dexamethasone 10mg IV, Morphine 6mg IV, Zofran 4mg IV Allergies Allergy/AdvReac Type Severity Reaction Status Date / Time levofloxacin Allergy Severe per Verified 07/21/20 12:17 graduate nurse to list for allergy d/t ? Vtach prochlorperazine Allergy Mild DISORIENTED Verified 07/21/20 12:17 amoxicillin Allergy Unknown RASH Verified 07/21/20 12:17 cephalexin Allergy Unknown HIVES Verified 07/21/20 12:17 clavulanic acid Allergy Unknown RASH Verified 07/21/20 12:17 Home Medications Home Medications Medication Instructions Recorded Confirmed Type loratadine 10 mg tablet 10 mg PO QAM #90 tab 05/09/19 07/21/20 Rx ondansetron 4 mg PO Q6H PRN #12 tab 12/12/19 07/21/20 Rx sotalol 120 mg PO Q12 12/12/19 07/21/20 History ifypjwgoxn-pvuklthygdudc-sanpkogg 1 tab PO Q4H PRN #30 tab 12/16/19 07/21/20 Rx 50 mg-325 mg-40 mg tablet duloxetine 60 mg capsule,delayed 60 mg PO QAM #90 cap 12/26/19 07/21/20 Rx release albuterol sulfate 90 mcg/actuation 2 puff INHALATION Q6H PRN #8 gm 02/08/20 07/21/20 Rx aerosol inhaler omeprazole 20 mg capsule,delayed 20 mg PO BID #180 cap 03/26/20 07/21/20 Rx release methocarbamol 500 mg tablet 500 mg PO BID #60 tab 07/05/20 07/21/20 Rx azelastine 2 spray INTRANASAL QAM 07/21/20 07/21/20 History duloxetine [Cymbalta] 20 mg PO QAM 07/21/20 07/21/20 History gabapentin 100 mg PO TID 07/21/20 07/21/20 History morphine 15 mg PO Q4H PRN 07/21/20 07/21/20 History mupirocin 1 appln TOP BID PRN 07/21/20 07/21/20 History Past Med/Surg History Medical History (Updated 07/21/20 @ 15:27 by Constance Arias DO) Abnormal CT scan, pelvis Adnexal cyst Allergic rhinitis Anxiety Anxiety Atypical chest pain Chronic diarrhea Chronic sinusitis Dark stools Depression Diarrhea Elevated liver enzymes Enterocele Former smoker Gastritis GERD (gastroesophageal reflux disease) H. pylori infection Headache Hemorrhoids History of colon polyps History of ventricular tachycardia 08/2017--etiology unknown, follows with Dr. Hanson Hyperlipidemia Hypertension Hypertrophy of both inferior nasal turbinates Hypokalemia Hypomagnesemia ICD (implantable cardioverter-defibrillator) in place 08/2017--[employer] "relocated twice", last 10/2018--all wires changed at this time, "has fired several times, last time end of oct 2018" ICD (implantable cardioverter-defibrillator) in place Incomplete defecation Left shoulder pain Left shoulder pain Migraine Night sweats Pacemaker Recent heart attack Restless legs syndrome Unspecified ovarian cyst, unspecified side Ventricular tachycardia Surgical History H/O hysterectomy with unilateral oophorectomy removed appendix at same time History of appendectomy History of bilateral tubal ligation History of cardiac cath 2016 @ [facility]--no stents History of cholecystectomy History of colonoscopy History of endoscopic sinus surgery x3 History of tonsillectomy History of tooth extraction History of total right knee replacement (TKR) History of wisdom tooth extraction S/P foot surgery, left multiple S/P foot surgery, right multiple Family History Father Family history of diabetes mellitus Other No family history of adverse response to anesthesia Social History (Updated 02/08/20 @ 23:48 by Josiah Mcknight DO) Smoking Status: Current every day smoker Second Hand Exposure: No; Hx Alcohol Use: Yes Alcohol type: beer and wine Hx Substance Use: No Preferred Language: Amharic Communication Ability: Effective Visual Impairment: No Limitations Hearing Ability: Normal Library Information Technician Required: No Beliefs That Will Affect Care: None Current Living Situation: Spouse and Family Current Living Situation Comment: Lives with and adult son current occupational status: retired Feels Safe at Home: Yes Physical Activity Frequency: Daily Assistive Devices: Denture - Upper and Glasses Review of Systems Review of Systems: All systems reviewed & are unremarkable except as noted in HPI & below +Poor oral intake due to pain +Nausea due to pain +Dizziness Physical Exam Physical Exam: General: patient resting comfortably, NAD, non-toxic in appearance, AA&O x 4 Skin: warm, dry, intact, no rashes or lesions HEENT: NC/AT, PERRL, EOMI, anicteric sclera, conjunctiva without injection, external ear normal to inspection and nontender, nares patent, moist mucus membranes, dentition intact, no oropharyngeal lesions, neck supple, trachea midline, no LAD, no thyromegaly, no JVD Heart: +S1/S2, regular, no m/r/g Lungs: equal air entry bilaterally, no rales/rhonchi/wheezes Abd: +BS, soft, NT/ND, no masses/organomegaly/ascites Ext: warm, 2+ pulses in UE/LE bilaterally, no clubbing/cyanosis or edema Neuro: nonfocal, discomfort with movement, sensation to light touch diminished in LLE medial side from knee to ankle, reflexes in LLE difficult to obtain Results & Data Results & Data ([facility]) Vital Signs (Past 12 Hours) Vital Signs Temp Pulse Pulse Resp BP BP Pulse Ox 07/21/20 14:16 72 20 116/64 92 07/21/20 12:26 80 20 108/63 95 07/21/20 10:59 36.7 C 98 H 20 101/62 94 Laboratory Results Lab Results 07/21/20 07/21/20 07/21/20 Range/Units 11:25 11:25 12:30 WBC 10.27 (4.8-10.8) K/uL RBC 4.57 (4.2-5.4) M/uL Hgb 14.8 (12.0-16.0) g/dL Hct 44.0 (37-47) % MCV 96.3 (80-100) fL MCH 32.4 (25-34) pg MCHC 33.6 (32-36) g/dL RDW Std Deviation 43.3 (36.4-46.3) fL RDW Coeff of Liz 12.3 (11.5-14.5) % Plt Count 213 (130-400) K/uL MPV 10.0 (7.4-10.4) fL Immature Gran % (Auto) 0.2 % Neut % (Auto) 70.9 % Lymph % (Auto) 16.7 % Whiteside % (Auto) 11.2 % Eos % (Auto) 0.7 % Baso % (Auto) 0.3 % Neut # (Auto) 7.28 H (1.4-6.5) K/uL Lymph # (Auto) 1.72 (1.2-3.4) K/uL Whiteside # (Auto) 1.15 H (0.11-0.59) K/uL Eos # (Auto) 0.07 (0-0.5) K/uL Baso # (Auto) 0.03 (0-0.2) K/uL Immature Gran # (Auto) 0.02 (0.00-0.02) K/uL Sodium 136 (136-145) mmol/L Potassium 3.6 (3.5-5.1) mmol/L Chloride 99 (98-107) mmol/L Carbon Dioxide 30 (21-32) mmol/L Anion Gap 7.0 (3-11) BUN 13 (7-18) mg/dl Creatinine 0.74 (0.6-1.2) mg/dl Est Cr Clr Drug Dosing Not Reportable Est GFR ( Amer) 97.8 Est GFR (Non-Af Amer) 84.4 BUN/Creatinine Ratio 17.4 (10-20) Glucose 143 H (70-99) mg/dl Calcium 9.0 (8.5-10.1) mg/dl Total Bilirubin 1.3 H (0.2-1) mg/dl AST 236 H (15-37) U/L ALT 336 H (12-78) U/L Alkaline Phosphatase 87 (45-117) U/L Total Protein 7.7 (6.4-8.2) gm/dl Albumin 3.6 (3.4-5.0) gm/dl Globulin 4.1 H (2.5-4.0) gm/dl Albumin/Globulin Ratio 0.9 (0.9-2) Lipase 103 (73-393) U/L Urine Color Christiana Urine Appearance Cloudy A (Clear) Urine pH 5.0 (4.5-7.5) Ur Specific Casa 1.021 (1.000-1.030) Urine Protein Trace H (Negative) Urine Glucose (UA) Negative (Negative) Urine Ketones Trace H (Negative) Urine Blood 2+ H (Negative) Urine Nitrite Negative (Negative) Urine Bilirubin Negative (Negative) Urine Urobilinogen Negative (Negative) Ur Leukocyte Esterase Trace H (Negative) Urine WBC (Auto) 1-5 (0-5) /hpf Urine RBC (Auto) 5-10 H (0-4) /hpf U Hyaline Cast (Auto) 1-5 (0-5) /lpf U Epithel Cells (Auto) 5-10 H (0-5) /lpf Urine Bacteria (Auto) 1+ H (Negative) Other Crystals Talc (None Prsent) Urine Mucus Present A (None Prsent) Diagnostic Findings LUMBAR SPINE CT CT DOSE: HISTORY: Back pain radiating down left leg TECHNIQUE: Multiaxial CT images of the lumbar spine were performed and reformatted in the sagittal and coronal plane without the use of contrast. A dose lowering technique was utilized adhering to the principles of ALARA. COMPARISON: None. FINDINGS: Levoscoliosis of the lumbar spine. No fracture or subluxation. The visualized sacrum appears intact. Moderate to severe disc space narrowing at L2- L3. Mild disc space narrowing at L3-L4 and L4-L5. Dntk-mn-bjnhxdhc facet degene rative changes within the lumbar spine most pronounced at the L3-L4 level. Moderate central canal narrowing at L3-L4 due to a broad-based posterior disc bulge and ligamentum and facet hypertrophy. There is also moderate right and mild left neural foraminal narrowing at this level. Mild central canal and mild bilateral neural foraminal narrowing at L4-L5. There is mild central canal narrowing at L2-L3 due to the disc bulge and facet hypertrophy. IMPRESSION: 1. No fracture or subluxation within the lumbar spine. 2. Degenerative changes as described above. 3. Levoscoliosis. ACT 112: Negative or not required by law. Electronically signed by: Frank Ramirez M.D. 07/21/2020 12:47 PM Dictated: 07/21/20 1244 Transcribed: 07/21/20 1244 [place], [place] [phone] CT Scan Report Patient: RIGO BARAJAS Date: 07/21/20 MR#: [id number]: [address] Acct ID:[id number]: Date: 1955[facility] Zip: [place] [id number] Age: 64Location: ED Sex: FRoom/Bed: Att Phy:Diagnosis: SEVERE PAIN CANT MOVE LEFT SIDE OF BODY,DIZZY Chela Phy: Josiah Mcknight Date: 07/21/20 Fam Phy:Interpreting Phy: Frank Ramirez MD Admit Phy: Ordering Phy: Nabil Escalera, cc: ~ ABDOMEN AND PELVIS CT WITH IV CONTRAST CT DOSE: 310.51 mGy.cm HISTORY: Elevated LFTs and bilirubin. Left hip pain. TECHNIQUE: Multiaxial CT images of the abdomen and pelvis were performed following the use of intravenous contrast. A dose lowering technique was utilized adhering to the principles of ALARA. COMPARISON STUDY: Abdomen and pelvis CT 05/17/2019. FINDINGS: Mild elevation of the left hemidiaphragm. The lung bases are clear. Pacemaker wires are noted. No pneumoperitoneum. No pneumatosis. No fractures within the visualized osseous structures. Small fat-containing umbilical hernia. Stable hypodense lesions within the right hepatic lobe. These likely represent cysts. Slight prominence of the biliary system is likely due to the patient's postcholecystectomy state. This is also unchanged. The pancreas, spleen, and adrenal glands are unremarkable. No retroperitoneal lymphadenopathy. There is a left retroaortic renal vein. Normal caliber abdominal aorta. The bladder is not well-distended. The uterus is surgically absent. Colonic diverticulosis. No evidence for acute diverticulitis. No bowel wall thickening or obstruction. The appendix is not identified and reportedly surgically absent. Moderate well- formed stool seen throughout the majority of the colon. No hydronephrosis. IMPRESSION: 1. No bowel wall thickening or obstruction. 2. Cholecystectomy, hysterectomy, and appendectomy. 3. Colonic diverticulosis. No evidence for acute diverticulitis. 4. No hydronephrosis. ACT 112: Negative or not required by law. Electronically signed by: Frank Ramirez M.D. 07/21/2020 12:52 PM Dictated: 07/21/20 1247 Code Status & VTE Plan Code Status FULL VTE Prophylaxis Plan VTE Prophylaxis will be ordered: Yes PG Care Time/CCT Total # of Minutes Spent Total Time Spent with Patient: Total time spent is greater than 50% in coordination of care (as documented) at patient's floor/unit and/or counseling patient: Coding Level of Care Code 09060 Initial Inpt Care Lvl 3 Diagnoses Back pain M54.42 Back pain location: low back pain Chronicity: acute Back pain laterality: left Sciatica presence: with sciatica Sciatica laterality: sciatica of left side Abnormal LFTs R94.5 Ventricular tachycardia I47.2 Hypertension I10 Hypertension type: essential hypertension Depression F32.9 Depression Type: major depressive disorder Major depression recurrence: unspecified whether recurrent Active/Remission status: remission status unspecified GERD (gastroesophageal reflux disease) K21.9 Esophagitis presence: esophagitis presence not specified (1) Back pain Back pain location: low back pain Chronicity: acute Back pain laterality: left Sciatica presence: with sciatica Sciatica laterality: sciatica of left side Qualified Code(s): M54.42 - Lumbago with sciatica, left side (2) Depression Depression Type: major depressive disorder Major depression recurrence: unspecified whether recurrent Active/Remission status: remission status unspecified Qualified Code(s): F32.9 - Major depressive disorder, single episode, unspecified (3) GERD (gastroesophageal reflux disease) Esophagitis presence: esophagitis presence not specified Qualified Code(s): K21.9 - Gastro-esophageal reflux disease without esophagitis (4) Hypertension Hypertension type: essential hypertension Qualified Code(s): I10 - Essential (primary) hypertension
[2020-07-21] MEDS ORDERED: POLYETHYLENE (MIRALAX) 17 GM PACK PO PRN (17:11)
[2020-07-21] MEDS ORDERED: DOCUSATE SODIUM 100 MG CAP PO PRN (17:11)
[2020-07-21] MEDS ORDERED: ALBUTEROL HFA 8 GM INHALER INH PRN (17:23)
[2020-07-21 18:14] LABS: Ferritin 234.5 ng/ml (8-388); Magnesium 1.9 mg/dl (1.8-2.4); Phosphorus 3.9 mg/dl (2.5-4.9)
--- NOTE | 2020-07-21 18:23 | Ultrasound Report ---
ABDOMINAL ULTRASOUND, RIGHT UPPER QUADRANT HISTORY: Abnormal LFTs. COMPARISON: Abdomen and pelvis CT 07/21/2020. FINDINGS: Pancreas: The pancreas demonstrates a normal echotexture. Liver: There are a few scattered cysts with the largest in the right hepatic lobe measuring 1.4 cm. Gallbladder: The gallbladder is surgically absent. CBD: 4 mm. Right kidney: No hydronephrosis. IMPRESSION: No significant abnormality identified within the right upper quadrant. ACT 112: Negative or not required by law. Electronically signed by: Frank Ramirez M.D. 07/21/2020 6:21 PM
[2020-07-21 18:32] LABS: Hepatitis B Surface Antigen Neg (Neg)
[2020-07-21] MEDS: SODIUM CHLORIDE 0.9% 1000ML 1,000 ML IV SCH (18:44)
[2020-07-21 19:00] LABS: Hepatitis C IgG 13Yrs+Old_Rflx Neg (Neg)
[2020-07-21] MEDS: SOTALOL HCL 80 MG TAB PO SCH (19:26)
[2020-07-21] MEDS ORDERED: Nursing to Pharmacy Communication SCH (19:30)
[2020-07-21] MEDS: PANTOprazole 40 MG TAB PO SCH (20:43)
[2020-07-21] MEDS: METHOCARBAMOL 500 MG TABLET PO SCH (20:45)
[2020-07-21] MEDS ORDERED: SOTALOL HCL 80 MG TAB PO SCH (21:00)
[2020-07-21] MEDS: MoRPHine SULFATE 2 MG/ML CARP IV PRN (23:58)
[2020-07-22] MEDS: OXYCODONE HCL IR 5 MG TAB (IMMEDIATE RELEASE) PO PRN ×3 (02:09→13:15)
[2020-07-22] MEDS: KETOROLAC TROMETHAMINE 15 MG/ML VIAL IV PRN ×2 (05:16→12:28)
[2020-07-22 06:27] LABS: Hematocrit (blood only) 37.7 % (37-47); Hemoglobin 12.8 g/dL (12.0-16.0); Immature Granulocytes # (auto) 0.04 K/uL (0.00-0.02); Immature Granulocytes % (auto) 0.4 %; Lymphocytes # (auto) 0.99 K/uL (1.2-3.4); Lymphocytes % (auto) 8.8 %; Mean Corpuscular Hemoglobin 32.9 pg (25-34); Mean Corpuscular Volume 96.9 fL (80-100); Mean Platelet Volume 10.3 fL (7.4-10.4); Monocytes # (auto) 1.07 K/uL (0.11-0.59); Monocytes % (auto) 9.5 %; Neutrophils # (auto) 9.14 K/uL (1.4-6.5); Neutrophils % (auto) 81.3 %; Platelet Count 189 K/uL (130-400); RDW Coefficient of Variation 12.3 % (11.5-14.5); RDW Standard Deviation 43.4 fL (36.4-46.3); Red Blood Count 3.89 M/uL (4.2-5.4); White Blood Count 11.24 K/uL (4.8-10.8)
[2020-07-22] MEDS: SODIUM CHLORIDE 0.9% 1000ML 1,000 ML IV SCH (06:34)
[2020-07-22] MEDS: SOTALOL HCL 80 MG TAB PO SCH ×2 (06:34→18:17)
[2020-07-22 06:58] LABS: Albumin Level 3.1 gm/dl (3.4-5.0); BUN Creatinine Ratio 22.1 (10-20); Bilirubin Direct 0.2 mg/dl (0-0.2); Calcium 9.3 mg/dl (8.5-10.1); Creatinine Clr Calc Pharmacy 76.9 ml/min; Est GFR (African American) 106.2; Est GFR (Non-African American) 91.6; Potassium 3.8 mmol/L (3.5-5.1)
[2020-07-22 07:17] LABS: Bilirubin,Total 0.7 mg/dl (0.2-1); Total Protein 7.2 gm/dl (6.4-8.2)
[2020-07-22] MEDS: DULOXETINE HCL 20 MG CAP PO SCH (09:05)
[2020-07-22] MEDS: PANTOprazole 40 MG TAB PO SCH ×2 (09:05→20:59)
[2020-07-22] MEDS: LORATADINE 10 MG TAB PO SCH (09:05)
[2020-07-22] MEDS: DULOXETINE HCL 60 MG CAP PO SCH (09:05)
[2020-07-22] MEDS: METHOCARBAMOL 500 MG TABLET PO SCH ×2 (09:06→20:59)
[2020-07-22] MEDS: LIDOCAINE 5% 1 PATCH TD SCH (09:06)
[2020-07-22] MEDS: MoRPHine SULFATE 2 MG/ML CARP IV PRN ×3 (14:50→23:23)
[2020-07-22] MEDS ORDERED: ACETAMINOPHEN 325 MG TAB PO PRN (15:07)
--- NOTE | 2020-07-22 15:07 | Hospitalist Progress Note ---
Date of Service July 22, 2020 Assessment & Plan (1) Back pain: Acute on chronic LBP with new symptoms of numbness/tingling. CT lumbar spine on 07/21 with extensive degenerative changes, disc space narrowing and canal stenosis at L3-L4 due to a broad-based posterior disc bulge. Paresthesias suggest involvement of L3, L4 nerve root. - Continue pain regimen - Lidoderm patch - Continue home methocarbamol 500mg PO BID - Add Tylenol today - PT/OT evaluation - Spine surgery consult pending (2) Abnormal LFTs: Patient with elevated liver studies - SYJ=419, HEP=061, Tbili-1.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 - Tylenol level undetectable; HepB & HepC both negative. HepA pending. - RUQ u/s on 07/21 with 4mm CBD and no stones noted. - Repeat LFTs this morning show improving AST/ALT: 95/227. (3) Ventricular tachycardia: Patient with VT arrest in 2017, AICD in place now. No discharges reported. She was seen by cardiology following ablation - per their note, patient DOES NOT have CAD but she has a NICM most consistent with cardiac sarcoid which has not been proven definitively. She follows routinely with Dr. Cartagena from [facility]. - Continue sotalol 120mg po BID - Maintain electrolytes - Avoid arrhythmogenic agents, QT prolonging agents where possible - Additional workup for NICM, possible cardiac sarcoidosis to be deferred to outpatient blackjack supervisor. (4) Hypertension: Blood pressure well-controlled at 120/70. Currently not on any antihypertensives. - Continue to monitor (5) Depression: Chronic. Well-controlled. - Continue Cymbalta 80 mg PO QAM (6) GERD (gastroesophageal reflux disease): Chronic. - Continue omeprazole 20mg po BID (7) DVT prophylaxis: SCDs - Low DVT risk per admission calculator; also holding until seen by orthopedic surgery. Admission and Anticipated Discharge Date Admission Date: July 21, 2020 Subjective No improvement in pain today. Requires pain medications to hit the "sweet spot" before feeling well. Reports no fevers/chills, chest pain, shortness of breath, nausea, or vomiting. Physical Exam Constitutional: WD/WN, vitals as above Eyes: EOM intact bilaterally; no conjunctival abnormality ENMT: external ear and nose normal, oropharynx normal Neck: trachea midline, no thyromegaly normal visual inspection Respiratory: normal respiratory effort, lungs clear to auscultation no respiratory distress Cardiovascular: RRR, no murmur, no edema Gastrointestinal (Abdomen): Inspection/Auscultation: abdomen normal to inspection; abdomen not distended Musculoskeletal: no cyanosis or clubbing, extremities motor strength 5/5 Skin: no rashes, warm and dry Neurologic: moves all extremities and awake Psychiatric: Orientation: alert, oriented to person and cooperative Results & Data Results & Data ([facility]) Vital Signs (Past 12 Hours) Vital Signs Temp Pulse Resp BP Pulse Ox 07/22/20 09:01 62 18 119/72 94 07/22/20 07:02 36.4 C L 62 16 103/65 95 PG Care Time/CCT Total # of Minutes Spent Total Time Spent with Patient: Total time spent is greater than 50% in coordination of care (as documented) at patient's floor/unit and/or counseling patient: Coding Level of Care Code 10564 Subseq Hosp Care Lvl 2 Diagnoses Back pain M54.42 Back pain location: low back pain Chronicity: acute Back pain laterality: left Sciatica presence: with sciatica Sciatica laterality: sciatica of left side Abnormal LFTs R94.5 Ventricular tachycardia I47.2 Hypertension I10 Hypertension type: essential hypertension Depression F32.9 Depression Type: major depressive disorder Major depression recurrence: unspecified whether recurrent Active/Remission status: remission status unspecified GERD (gastroesophageal reflux disease) K21.9 Esophagitis presence: esophagitis presence not specified DVT prophylaxis Z29.9 (1) Back pain Back pain location: low back pain Chronicity: acute Back pain laterality: left Sciatica presence: with sciatica Sciatica laterality: sciatica of left side Qualified Code(s): M54.42 - Lumbago with sciatica, left side (2) Hypertension Hypertension type: essential hypertension Qualified Code(s): I10 - Essential (primary) hypertension (3) Depression Depression Type: major depressive disorder Major depression recurrence: unspecified whether recurrent Active/Remission status: remission status unspecified Qualified Code(s): F32.9 - Major depressive disorder, single episode, unspecified (4) GERD (gastroesophageal reflux disease) Esophagitis presence: esophagitis presence not specified Qualified Code(s): K21.9 - Gastro-esophageal reflux disease without esophagitis
[2020-07-23] MEDS: MoRPHine SULFATE 2 MG/ML CARP IV PRN ×3 (04:53→20:45)
[2020-07-23] MEDS: SOTALOL HCL 80 MG TAB PO SCH ×2 (05:56→18:05)
[2020-07-23 06:20] LABS: Hematocrit (blood only) 33.9 % (37-47); Hemoglobin 11.4 g/dL (12.0-16.0); Mean Corpuscular Hemoglobin 32.4 pg (25-34); Mean Corpuscular Hgb Conc 33.6 g/dL (32-36); Mean Corpuscular Volume 96.3 fL (80-100); Mean Platelet Volume 10.6 fL (7.4-10.4); Platelet Count 210 K/uL (130-400); RDW Coefficient of Variation 12.4 % (11.5-14.5); RDW Standard Deviation 43.4 fL (36.4-46.3); Red Blood Count 3.52 M/uL (4.2-5.4); White Blood Count 7.22 K/uL (4.8-10.8)
[2020-07-23 06:35] LABS: Albumin Level 2.8 gm/dl (3.4-5.0); BUN Creatinine Ratio 29.4 (10-20); Calcium 8.9 mg/dl (8.5-10.1); Creatinine Clr Calc Pharmacy 87.3 ml/min; Est GFR (African American) 110.7; Est GFR (Non-African American) 95.5; Magnesium 1.9 mg/dl (1.8-2.4); Potassium 3.9 mmol/L (3.5-5.1)
[2020-07-23 06:38] LABS: Albumin Globulin Ratio 0.7 (0.9-2); Bilirubin,Total 0.6 mg/dl (0.2-1); Globulin 3.8 gm/dl (2.5-4.0); Phosphorus 3.9 mg/dl (2.5-4.9); Total Protein 6.6 gm/dl (6.4-8.2)
[2020-07-23] MEDS: PANTOprazole 40 MG TAB PO SCH ×2 (07:34→20:45)
[2020-07-23] MEDS: DULOXETINE HCL 60 MG CAP PO SCH (07:35)
[2020-07-23] MEDS: METHOCARBAMOL 500 MG TABLET PO SCH ×2 (07:35→20:45)
[2020-07-23] MEDS: LIDOCAINE 5% 1 PATCH TD SCH (07:35)
[2020-07-23] MEDS: DULOXETINE HCL 20 MG CAP PO SCH (07:35)
[2020-07-23] MEDS: LORATADINE 10 MG TAB PO SCH (07:35)
[2020-07-23] MEDS: OXYCODONE HCL IR 5 MG TAB (IMMEDIATE RELEASE) PO PRN ×2 (07:43→18:13)
--- NOTE | 2020-07-23 12:07 | Hospitalist Progress Note ---
Date of Service July 23, 2020 Assessment & Plan (1) Back pain: Acute on chronic LBP with new symptoms of numbness/tingling. CT lumbar spine on 07/21 with extensive degenerative changes, disc space narrowing and canal stenosis at L3-L4 due to a broad-based posterior disc bulge. Paresthesias suggest involvement of L3, L4 nerve root. - Continue pain regimen - Lidoderm patch - Continue home methocarbamol 500mg PO BID - Added Tylenol on 07/22 after LFTs improved. - PT/OT evaluation - Spine surgery consult pending -> Touched base with Dr. Ramirez who will see the patient. Per patient, also recommending pain management. (2) Abnormal LFTs: Patient with elevated liver studies - EBO=376, OAO=199, Tbili-1.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 - Tylenol level undetectable; HepB & HepC both negative. HepA pending. - RUQ u/s on 07/21 with 4mm CBD and no stones noted. - Repeat LFTs this morning show improving AST/ALT: 44/148. Discussed with patient. She reports she may have taken upwards of 2-3g of Tylenol for a few days in a row prior to admission, but not more. Additionally, this has occurred before without any acetaminophen consumption. As such, unclear cause at this time, though each episode self-resolves. GI notes from 05/14/2020 reviewed, and they feel it is a mild viral hepatitis. - Monitor (3) Ventricular tachycardia: Patient with VT arrest in 2017, AICD in place now. No discharges reported. She was seen by cardiology following ablation - per their note, patient DOES NOT have CAD but she has a NICM most consistent with cardiac sarcoid which has not been proven definitively. She follows routinely with Dr. Cartagena from [facility]. 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 (4) Hypertension: Blood pressure well-controlled at 130/85. Currently not on any ant ihypertensives. - Continue to monitor (5) Depression: Chronic. Well-controlled. - Continue Cymbalta 80 mg PO QAM (6) GERD (gastroesophageal reflux disease): Chronic. - Continue omeprazole 20mg po BID (7) DVT prophylaxis: SCDs - Low DVT risk per admission calculator; also holding until seen by orthopedic surgery. Admission and Anticipated Discharge Date Admission Date: July 21, 2020 Subjective No major change today. She feels the back pain is the same. Largely controlled with the pain medications, but they wear off. Reports no fevers/chills, chest pain, shortness of breath, abdominal pain, nausea, or vomiting. Physical Exam Constitutional: WD/WN, vitals as above Eyes: EOM intact bilaterally; no conjunctival abnormality ENMT: external ear and nose normal, oropharynx normal Neck: trachea midline, no thyromegaly normal visual inspection Respiratory: normal respiratory effort, lungs clear to auscultation no respiratory distress Cardiovascular: RRR, no murmur, no edema Gastrointestinal (Abdomen): Inspection/Auscultation: abdomen normal to inspection; abdomen not distended Musculoskeletal: no cyanosis or clubbing, extremities motor strength 5/5 Skin: no rashes, warm and dry Neurologic: moves all extremities and awake Psychiatric: Orientation: alert, oriented to person and cooperative Results & Data Results & Data ([facility]) Vital Signs (Past 12 Hours) Vital Signs Temp Pulse Resp BP Pulse Ox 07/23/20 07:22 36.6 C 59 L 16 132/86 96 PG Care Time/CCT Total # of Minutes Spent Total Time Spent with Patient: Total time spent is greater than 50% in coordination of care (as documented) at patient's floor/unit and/or counseling patient: Coding Level of Care Code 07218 Subseq Hosp Care Lvl 3 Diagnoses Back pain M54.42 Back pain location: low back pain Chronicity: acute Back pain laterality: left Sciatica presence: with sciatica Sciatica laterality: sciatica of left side Abnormal LFTs R94.5 Ventricular tachycardia I47.2 Hypertension I10 Hypertension type: essential hypertension Depression F32.9 Depression Type: major depressive disorder Major depression recurrence: unspecified whether recurrent Active/Remission status: remission status unspecified GERD (gastroesophageal reflux disease) K21.9 Esophagitis presence: esophagitis presence not specified DVT prophylaxis Z29.9 (1) Back pain Back pain location: low back pain Chronicity: acute Back pain laterality: left Sciatica presence: with sciatica Sciatica laterality: sciatica of left side Qualified Code(s): M54.42 - Lumbago with sciatica, left side (2) Hypertension Hypertension type: essential hypertension Qualified Code(s): I10 - Essential (primary) hypertension (3) Depression Depression Type: major depressive disorder Major depression recurrence: unspecified whether recurrent Active/Remission status: remission status unspecified Qualified Code(s): F32.9 - Major depressive disorder, single episode, unspecified (4) GERD (gastroesophageal reflux disease) Esophagitis presence: esophagitis presence not specified Qualified Code(s): K21.9 - Gastro-esophageal reflux disease without esophagitis
--- NOTE | 2020-07-23 12:28 | Consultation ---
Date of Consultation July 23, 2020 Assessment & Plan (1) Back pain: Patient CT scan and clinical findings have been reviewed with Dr. Ramirez. Unfortunately patient is unable to have an MRI due to her pacemaker. I strongly suspect disc herniation. This is difficult to assess on her lumbar CT. Her pain is along the left L4 nerve. Would therefore recommend a diagnostic/therapeutic left L4 nerve block. I have consulted [facility] any pain management to assess her for this. Again nonoperative treatment at this point in time. Patient is comfortable with this plan. Supervising Physician Co-Signing Physician Notes Dr. Adan Ramirez History of Present Illness Is a pleasant 64-year-old female that we are asked to see in consultation regarding her lumbar spine. Symptoms started acutely 8 days ago. Pain involves the left lumbar area, left buttock, left anterior thigh, knee, anterior parker to her ankle. Right lower extremity is asymptomatic. Symptoms started without pr ecipitating accident, trauma, fall. She does report though in April of this year she started with She is concerned this is contributing to her current pain. She reports her pain is reproduced with any type of movement including sitting, standing, lying down. Denies bowel or bladder changes. physical therapy focusing on the pelvic floor. She has been taking qwpd-pjh-kjyqlgj NSAIDs at home. She is ambling independently at home. Attending Physician: Boyd Goode MD Allergies Allergy/AdvReac Type Severity Reaction Status Date / Time levofloxacin Allergy Severe per Verified 07/21/20 12:17 cable lacer to list for allergy d/t ? Vtach prochlorperazine Allergy Mild DISORIENTED Verified 07/21/20 12:17 amoxicillin Allergy Unknown RASH Verified 07/21/20 12:17 cephalexin Allergy Unknown HIVES Verified 07/21/20 12:17 clavulanic acid Allergy Unknown RASH Verified 07/21/20 12:17 Home Medications Home Medications Medication Instructions Recorded Confirmed Type loratadine 10 mg tablet 10 mg PO QAM #90 tab 05/09/19 07/21/20 Rx ondansetron 4 mg PO Q6H PRN #12 tab 12/12/19 07/21/20 Rx sotalol 120 mg PO Q12 12/12/19 07/21/20 History coxzredqjb-fidmrkoqikrbl-xuqagmur 1 tab PO Q4H PRN #30 tab 02/28/20 10/03/20 Rx 50 mg-325 mg-40 mg tablet duloxetine 60 mg capsule,delayed 60 mg PO QAM #90 cap 12/26/19 07/21/20 Rx release albuterol sulfate 90 mcg/actuation 2 puff INHALATION Q6H PRN #8 gm 02/08/20 07/21/20 Rx aerosol inhaler omeprazole 20 mg capsule,delayed 20 mg PO BID #180 cap 03/26/20 07/21/20 Rx release methocarbamol 500 mg tablet 500 mg PO BID #60 tab 07/05/20 07/21/20 Rx azelastine 2 spray INTRANASAL QAM 07/21/20 07/21/20 History duloxetine [Cymbalta] 20 mg PO QAM 07/21/20 07/21/20 History gabapentin 100 mg PO TID 07/21/20 07/21/20 History morphine 15 mg PO Q4H PRN 07/21/20 07/21/20 History mupirocin 1 appln TOP BID PRN 07/21/20 07/21/20 History Patient History Medical History Abnormal CT scan, pelvis Adnexal cyst Allergic rhinitis Anxiety Anxiety Atypical chest pain Chronic diarrhea Chronic sinusitis Dark stools Depression Diarrhea Elevated liver enzymes Enterocele Former smoker Gastritis GERD (gastroesophageal reflux disease) H. pylori infection Headache Hemorrhoids History of colon polyps History of ventricular tachycardia 08/2017--etiology unknown, follows with Dr. Hanson Hyperlipidemia Hypertension Hypertrophy of both inferior nasal turbinates Hypokalemia Hypomagnesemia ICD (implantable cardioverter-defibrillator) in place 08/2017--[employer] "relocated twice", last 10/2018--all wires changed at this time, "has fired several times, last time end of oct 2018" ICD (implantable cardioverter-defibrillator) in place Incomplete defecation Left shoulder pain Left shoulder pain Migraine Night sweats Pacemaker Recent heart attack Restless legs syndrome Unspecified ovarian cyst, unspecified side Ventricular tachycardia Surgical History H/O hysterectomy with unilateral oophorectomy removed appendix at same time History of appendectomy History of bilateral tubal ligation History of cardiac cath 2016 @ [facility]--no stents History of cholecystectomy History of colonoscopy History of endoscopic sinus surgery x3 History of tonsillectomy History of tooth extraction History of total right knee replacement (TKR) History of wisdom tooth extraction S/P foot surgery, left multiple S/P foot surgery, right multiple Family History Father Family history of diabetes mellitus Other No family history of adverse response to anesthesia Social History Smoking Status: Current every day smoker Cigarettes Per Day: less than 1/2 pack a day; Second Hand Exposure: No; Hx Alcohol Use: Yes Alcohol type: beer and wine Hx Substance Use: Yes Substance Use Type Other:: morphine 15 mg Preferred Language: Irish Communication Ability: Effective Visual Impairment: No Limitations Hearing Ability: Normal Load Out Worker Required: No Beliefs That Will Affect Care: None Current Living Situation: Spouse Current Living Situation Comment: Lives with and adult son current occupational status: retired Feels Safe at Home: Yes Physical Activity Frequency: Daily Assistive Devices: Walker Review of Systems Review of Systems: All systems reviewed & are unremarkable except as noted in HPI & below Physical Exam Physical Exam: She is alert and oriented x3. No acute distress. She is cooperative with exam. She is lying in bed in a reclined position. She is tender to patient over the left sciatic notch area. She has a positive tension sign on the left. Negative contralateral straight leg raise. Negative logrolling bilaterally. Motor testing is 5 5 bilateral EHL, dorsiflexion, plantarflexion, quadriceps, hamstrings, hip flexors, hip abductor's and hip adductor's. Constitutional: WD/WN, vitals as above Eyes: normal visual villanueva by confrontation ENMT: external ear and nose normal, oropharynx normal Neck: normal visual inspection Respiratory: normal respiratory effort Cardiovascular: Vessels: dorsalis pedis pulses present Extremities: normal capillary refill Chest (Breasts): Chest: normal inspection of chest Gastrointestinal (Abdomen): Inspection/Auscultation: abdomen normal to inspection Musculoskeletal: Extremities: strength 5/5 throughout Skin: no rashes, warm and dry Neurologic: normal touch/pain/proprioception and moves all extremities Psychiatric: A+Ox3, euthymic affect Results & Data ([facility]) Vital Signs (Past 12 Hours) Vital Signs Temp Pulse Resp BP Pulse Ox 07/23/20 07:22 36.6 C 59 L 16 132/86 96 Diagnostic Findings [place], [place] [phone] CT Scan Report Patient: RIGO BARAJAS Date: 07/21/20 MR#: [id number]: [address] Acct ID:[id number]: Date: [address] [place] [address] Zip: [place] [id number] Age: 64Location: ED Sex: FRoom/Bed: Att Phy:Diagnosis: SEVERE PAIN CANT MOVE LEFT SIDE OF BODY,DIZZY Chela Phy: Josiah Mcknight Date: 07/21/20 Fam Phy:Interpreting Phy: Frank Ramirez MD Admit Phy: Ordering Phy: Nabil Escalera DO cc: ~ LUMBAR SPINE CT CT DOSE: HISTORY: Back pain radiating down left leg TECHNIQUE: Multiaxial CT images of the lumbar spine were performed and reformatted in the sagittal and coronal plane without the use of contrast. A dose lowering technique was utilized adhering to the principles of ALARA. COMPARISON: None. FINDINGS: Levoscoliosis of the lumbar spine. No fracture or subluxation. The visualized sacrum appears intact. Moderate to severe disc space narrowing at L2- L3. Mild disc space narrowing at L3-L4 and L4-L5. Dgxf-ru-ncskjvzm facet degenerative changes within the lumbar spine most pronounced at the L3-L4 level. Moderate central canal narrowing at L3-L4 due to a broad-based posterior disc bulge and ligamentum and facet hypertrophy. There is also moderate right and mild left neural foraminal narrowing at this level. Mild central canal and mild bilateral neural foraminal narrowing at L4-L5. There is mild central canal narrowing at L2-L3 due to the disc bulge and facet hypertrophy. IMPRESSION: 1. No fracture or subluxation within the lumbar spine. 2. Degenerative changes as described above. 3. Levoscoliosis. ACT 112: Negative or not required by law. Electronically signed by: Frank Ramirez M.D. 07/21/2020 12:47 PM Dictated: 07/21/20 1244 (1) Back pain Back pain location: low back pain Chronicity: acute Back pain laterality: left Sciatica presence: with sciatica Sciatica laterality: sciatica of left side Qualified Code(s): M54.42 - Lumbago with sciatica, left side
--- NOTE | 2020-07-23 15:06 | Pain Management Consultation ---
Date of Consultation July 23, 2020 Assessment & Plan (1) Lumbar radiculopathy, acute: 1. Recommend a left L4-5 transforaminal epidural steroid injection at this time. The patient was counseled extensively on the risk, benefits, expectations of the procedure and agrees to proceed. She will be made n.p.o. after midnight and coordination will be made for her procedure to be completed in either the operating room versus special procedures radiology depending on space and time available. Toradol is currently on hold for her procedure but may be resumed after epidural is complete. 2. Recommend gabapentin 300 mg p.o. twice daily. 3. Continue Lidoderm patch, Cymbalta, and oxycodone as previous 4. Recommend course of outpatient physical therapy after discharge. 5. Patient may follow-up in the [facility] pain management office approximately 1 to 2 weeks after her discharge. 6. Thank you very much for this consultation. (2) Lumbar spinal stenosis: Neurogenic claudication status: without neurogenic claudication Qualified Code(s): M48.061 - Spinal stenosis, lumbar region without neurogenic claudication (3) Anxiety: (4) Pacemaker: (5) ICD (implantable cardioverter-defibrillator) in place: (6) Ventricular tachycardia: History of Present Illness Attending Physician: Boyd Goode MD History of Present Illness 64-year-old female with 8-day history of 90% left L4 symptoms to 10% axial low back pain without known injury. She states she had some transient low back pain over the course of the summer while she was doing physical therapy for her pelvic floor but it resolved without treatment. She reports that 8 days ago she woke up with excruciating pain and presented to the [place] emergency room who prescribed gabapentin and gave her IV morphine and discharge her home. She states that she is still having difficult with pain and presented to the [facility] emergency room for evaluation and care. She states the pain is characterizes sharp shooting stabbing worse with activity better with rest. She tried heat, Robaxin, gabapentin 100 mg, oxycodone (mild benefit), Robaxin, rest without measurable benefit. She denies any bowel or bladder incontinence, motor weakness, footdrop, fever, chills, and or night sweats. She has not previously had any interventional pain management procedures. CT scan of the lumbar spine was performed secondary to pacer ICD status. Pain Assessment Full Body Front + Back: 1. 2. [facility] Combined Pain Scale: 6-Mod to Severe - Significant limitations of ADLs. Hard to do anything Pain scale - at its best (0-10): 5 Pain scale - at its worst (0-10): 9 Allergies Allergy/AdvReac Type Severity Reaction Status Date / Time levofloxacin Allergy Severe per Verified 07/21/20 12:17 director call to list for allergy d/t ? Vtach prochlorperazine Allergy Mild DISORIENTED Verified 07/21/20 12:17 amoxicillin Allergy Unknown RASH Verified 07/21/20 12:17 cephalexin Allergy Unknown HIVES Verified 07/21/20 12:17 clavulanic acid Allergy Unknown RASH Verified 07/21/20 12:17 Home Medications Home Medications Medication Instructions Recorded Confirmed Type loratadine 10 mg tablet 10 mg PO QAM #90 tab 05/09/19 07/21/20 Rx ondansetron 4 mg PO Q6H PRN #12 tab 12/12/19 07/21/20 Rx sotalol 120 mg PO Q12 12/12/19 07/21/20 History odnpxxduyi-hzcybinmgeebd-iysgpedb 1 tab PO Q4H PRN #30 tab 12/16/19 07/21/20 Rx 50 mg-325 mg-40 mg tablet duloxetine 60 mg capsule,delayed 60 mg PO QAM #90 cap 12/26/19 07/21/20 Rx release albuterol sulfate 90 mcg/actuation 2 puff INHALATION Q6H PRN #8 gm 02/08/20 07/21/20 Rx aerosol inhaler omeprazole 20 mg capsule,delayed 20 mg PO BID #180 cap 03/26/20 07/21/20 Rx release methocarbamol 500 mg tablet 500 mg PO BID #60 tab 07/05/20 07/21/20 Rx azelastine 2 spray INTRANASAL QAM 07/21/20 07/21/20 History duloxetine [Cymbalta] 20 mg PO QAM 07/21/20 07/21/20 History gabapentin 100 mg PO TID 07/21/20 07/21/20 History morphine 15 mg PO Q4H PRN 07/21/20 07/21/20 History mupirocin 1 appln TOP BID PRN 07/21/20 07/21/20 History Pain History Pain Intensity Pain scale - at its best (0-10): 5 Pain scale - at its worst (0-10): 9 Patient History Medical History Abnormal CT scan, pelvis Adnexal cyst Allergic rhinitis Anxiety Anxiety Atypical chest pain Chronic diarrhea Chronic sinusitis Dark stools Depression Diarrhea Elevated liver enzymes Enterocele Former smoker Gastritis GERD (gastroesophageal reflux disease) H. pylori infection Headache Hemorrhoids History of colon polyps History of ventricular tachycardia 08/2017--etiology unknown, follows with Dr. Hanson Hyperlipidemia Hypertension Hypertrophy of both inferior nasal turbinates Hypokalemia Hypomagnesemia ICD (implantable cardioverter-defibrillator) in place 08/2017--[employer] "relocated twice", last 10/2018--all wires changed at this time, "has fired several times, last time end of oct 2018" ICD (implantable cardioverter-defibrillator) in place Incomplete defecation Left shoulder pain Left shoulder pain Migraine Night sweats Pacemaker Recent heart attack Restless legs syndrome Unspecified ovarian cyst, unspecified side Ventricular tachycardia Surgical History H/O hysterectomy with unilateral oophorectomy removed appendix at same time History of appendectomy History of bilateral tubal ligation History of cardiac cath 2016 [facility]--no stents History of cholecystectomy History of colonoscopy History of endoscopic sinus surgery x3 History of tonsillectomy History of tooth extraction History of total right knee replacement (TKR) History of wisdom tooth extraction S/P foot surgery, left multiple S/P foot surgery, right multiple Family History Father Family history of diabetes mellitus Other No family history of adverse response to anesthesia Social History Smoking Status: Current every day smoker Cigarettes Per Day: less than 1/2 pack a day; Second Hand Exposure: No; Hx Alcohol Use: Yes Alcohol type: beer and wine Hx Substance Use: Yes Substance Use Type Other:: morphine 15 mg Preferred Language: Kazakh Communication Ability: Effective Visual Impairment: No Limitations Hearing Ability: Normal Network Development Coordinator Required: No Beliefs That Will Affect Care: None Current Living Situation: Spouse Current Living Situation Comment: Lives with and adult son current occupational status: retired Feels Safe at Home: Yes Physical Activity Frequency: Daily Assistive Devices: Walker Physical Exam Physical Exam: Constitutional: Well-developed, well-nourished, healthy- appearing, normal weight Psych: Awake, alert, and oriented 3 with normal affect and mood. Recent memory appears grossly intact Eyes: Pupils are equally round and reactive to light with normal size pupils, eyelids appear normal Ear, nose, mouth, and throat: Moist nasal and oral membranes, lips and tongues appear normal, no external ear abnormalities are noted Neck: The trachea is midline without deviation and no thyromegaly is noted Respiratory: Normal respiratory effort without distress, no audible wheezes or rhonchi CV: Normal S1 and S2, pacer ICD is in situ in anterior chest wall Chest: Deferred GI/abdomen: Non-tender without guarding, soft Musculoskeletal: Head is normocephalic and atraumatic, gait not observed. Patient moves in the bed with mild difficulty. Cervical: Lordotic curve: Normal Range of motion is normal with extension, flexion, side-bending, rotation Strength: Strength is equal bilaterally with 5 out of 5 strength in all planes Sensation of upper extremities: Intact bilaterally Thoracic: Kyphotic curve: Normal Range of motion is normal with extension, flexion, side-bending, rotation Myofascial spasm: No appreciable spasm. No discrete trigger points noted Lumbar: Lordotic curve: Normal Range of motion is decreased to 10 degrees with extension, adequate flexion, side-bending, rotation Tenderness: Mild to moderately tender over the axial midline left greater than right L4-S1 Facet provocation: Marginally positive bilaterally Straight leg raise: Negative bilaterally, not worsened with Achilles stretch Step-off injuries: None Strength: Strength is equal bilaterally with 5 out of 5 strength in all planes Sensation of lower extremities: Intact bilaterally, with the exception of persistent numbness along her left L4 dermatome at the tibia Deep tendon reflexes: Rated at 2+ in bilateral S1, no appreciable reflex in the left L4. Right L4 reflex not tested secondary to knee replacement status. Myofascial spasm: Moderate spasm over left quadratus lumborum and lumbar paravertebral spinous musculature. No discrete trigger points noted Greater trochanters: Nontender bilaterally Sacroiliac joints: Mildly tender on the left nontender on the right Fabere and Gaenslens: negative bilaterally Pathologic reflexes noted: None Skin: No rashes, lesions, ulcers, or induration noted Neuro: No nystagmus noted, the tongue is midline, the patient is able to rotate their head bilaterally : Deferred Results (Pain Clinic) Diagnostic Review CT: non enhanced, reports reviewed, images reviewed and findings discussed with patient CT Findings: 07/21/[address] DOSE: HISTORY: Back pain radiating down left leg TECHNIQUE: Multiaxial CT images of the lumbar spine were performed and reformatted in the sagittal and coronal plane without the use of contrast. A dose lowering technique was utilized adhering to the principles of ALARA. COMPARISON: None. FINDINGS: Levoscoliosis of the lumbar spine. No fracture or subluxation. The visualized sacrum appears intact. Moderate to severe disc space narrowing at L2- L3. Mild disc space narrowing at L3-L4 and L4-L5. Kmym-hl-ibrunqjj facet degenerative changes within the lumbar spine most pronounced at the L3-L4 level. Moderate central canal narrowing at L3-L4 due to a broad-based posterior disc bulge and ligamentum and facet hypertrophy. There is also moderate right and mild left neural foraminal narrowing at this level. Mild central canal and mild bilateral neural foraminal narrowing at L4-L5. There is mild central canal narrowing at L2-L3 due to the disc bulge and facet hypertrophy. IMPRESSION: 1. No fracture or subluxation within the lumbar spine. 2. Degenerative changes as described above. 3. Levoscoliosis.
--- NOTE | 2020-07-23 17:51 | Anesthesiology Consultation ---
Date of Service July 23, 2020 Assessment & Plan (1) Encounter for pre-operative examination: Chart Review Chart Review: Acceptable Risk for Surgery and Patient NOT seen in Pre Admission Testing will order ecg if one not obtained this admission. will also routine preop covid 19 screen. Consults Requested none History Surgery Operation Date: 07/24/20 12:15 Proposed Procedures p Left L4-L5 Transforaminal Steroid Injection - Tomasz Vallejo MD, FIPP Height/Weight Height: 5 ft 10 in Weight: 58.967 kg Allergies Allergy/AdvReac Type Severity Reaction Status Date / Time levofloxacin Allergy Severe per Verified 07/21/20 12:17 moss picker to list for allergy d/t ? Vtach prochlorperazine Allergy Mild DISORIENTED Verified 07/21/20 12:17 amoxicillin Allergy Unknown RASH Verified 07/21/20 12:17 cephalexin Allergy Unknown HIVES Verified 07/21/20 12:17 clavulanic acid Allergy Unknown RASH Verified 07/21/20 12:17 Medications Home Medications Medication Instructions Recorded Confirmed Last Taken loratadine 10 mg tablet 10 mg PO QAM #90 tab 05/09/19 07/21/20 07/20/20 ondansetron 4 mg PO Q6H PRN #12 tab 12/12/19 07/21/20 Unknown sotalol 120 mg PO Q12 12/12/19 07/21/20 07/21/20 06:30 lgoibokunp-lfikajvdnpibc-aotqpzdt 1 tab PO Q4H PRN #30 tab 12/16/19 07/21/20 Unknown 50 mg-325 mg-40 mg tablet duloxetine 60 mg capsule,delayed 60 mg PO QAM #90 cap 12/26/19 07/21/20 07/19/20 release albuterol sulfate 90 mcg/actuation 2 puff INHALATION Q6H PRN #8 gm 02/08/20 07/21/20 Unknown aerosol inhaler omeprazole 20 mg capsule,delayed 20 mg PO BID #180 cap 03/26/20 07/21/20 07/19/20 release methocarbamol 500 mg tablet 500 mg PO BID #60 tab 07/05/20 07/21/20 07/17/20 azelastine 2 spray INTRANASAL QAM 07/21/20 07/21/20 07/21/20 duloxetine [Cymbalta] 20 mg PO QAM 07/21/20 07/21/20 07/19/20 gabapentin 100 mg PO TID 07/21/20 07/21/20 07/21/20 05:30 morphine 15 mg PO Q4H PRN 07/21/20 07/21/20 07/21/20 08:30 mupirocin 1 appln TOP BID PRN 07/21/20 07/21/20 Unknown Active Medications Generic Name Dose Route Start Last Admin Trade Name Freq PRN Reason Stop Dose Admin Duloxetine HCl 20 mg 07/22/20 09:00 07/23/20 07:35 Duloxetine Hcl 20 Mg Cap PO 08/21/20 08:59 20 mg QAM PRETTY Administration Duloxetine HCl 60 mg 07/22/20 09:00 07/23/20 07:35 Duloxetine Hcl 60 Mg Cap PO 08/21/20 08:59 60 mg QAM PRETTY Administration Lidocaine 1 patch 07/22/20 09:00 07/23/20 07:35 Lidocaine 5% 1 Patch TD 08/21/20 08:59 1 patch QAM PRETTY Administration Loratadine 10 mg 07/22/20 09:00 07/23/20 07:35 Loratadine 10 Mg Tab PO 08/21/20 08:59 10 mg QAM PRETTY Administration Methocarbamol 500 mg 07/21/20 21:00 07/23/20 07:35 Methocarbamol 500 Mg Tablet PO 08/20/20 20:59 500 mg BID PRETTY Administration Miscellaneous 1 ea 07/22/20 00:00 07/23/20 16:19 Azelastine ~ Order Awaiting Action N/A 08/21/20 00:00 Not Given QS PRETTY Miscellaneous 1 ea 07/21/20 21:00 07/22/20 21:00 Remove Lidoderm Patch N/A 08/20/20 20:59 1 ea DAILY@2100 PRETTY Administration Morphine Sulfate 3 mg 07/23/20 08:41 07/23/20 11:32 Morphine Sulfate 2 Mg/Ml Carp IV 08/04/20 17:10 3 mg Q4H PRN Administration Pain Oxycodone HCl 5 mg 07/21/20 17:11 07/23/20 07:43 Oxycodone Hcl Ir 5 Mg Tab (Immediate Release) PO 08/04/20 17:10 5 mg Q4H PRN Administration Pain Pantoprazole Sodium 40 mg 07/21/20 21:00 07/23/20 07:34 Pantoprazole 40 Mg Tab PO 08/20/20 20:59 40 mg BID PRETTY Administration Sotalol HCl 120 mg 07/21/20 19:23 07/23/20 05:56 Sotalol Hcl 80 Mg Tab PO 08/20/20 19:22 120 mg BID@0630,1830 PRETTY Administration Past Medical History Medical History Abnormal CT scan, pelvis Adnexal cyst Allergic rhinitis Anxiety Anxiety Atypical chest pain Chronic diarrhea Chronic sinusitis Dark stools Depression Diarrhea Elevated liver enzymes Enterocele Former smoker Gastritis GERD (gastroesophageal reflux disease) H. pylori infection Headache Hemorrhoids History of colon polyps History of ventricular tachycardia 08/2017--etiology unknown, follows with Dr. Hanson Hyperlipidemia Hypertension Hypertrophy of both inferior nasal turbinates Hypokalemia Hypomagnesemia ICD (implantable cardioverter-defibrillator) in place 08/2017--[employer] "relocated twice", last 10/2018--all wires changed at this time, "has fired several times, last time end of oct 2018" ICD (implantable cardioverter-defibrillator) in place Incomplete defecation Left shoulder pain Left shoulder pain Lumbar radiculopathy, acute Lumbar spinal stenosis Migraine Night sweats Pacemaker Recent heart attack Restless legs syndrome Unspecified ovarian cyst, unspecified side Ventricular tachycardia Ventricular tachycardia: Patient with VT arrest in 2016, AICD in place now. No discharges reported. Patient has not been contacted by the service to report arrhythmia. She was seen by Cardiology following ablation - per their note, patient DOES NOT have CAD but she has a NICM most consistent with cardiac sarcoid which has not been proven definitively. She follows routinely with Dr. Cartagena from [facility]. Past Family History Family History Father Family history of diabetes mellitus Other No family history of adverse response to anesthesia Past Surgical History Surgical History H/O hysterectomy with unilateral oophorectomy removed appendix at same time History of appendectomy History of bilateral tubal ligation History of cardiac cath 2016 @ [facility]--no stents History of cholecystectomy History of colonoscopy History of endoscopic sinus surgery x3 History of tonsillectomy History of tooth extraction History of total right knee replacement (TKR) History of wisdom tooth extraction S/P foot surgery, left multiple S/P foot surgery, right multiple Social History Smoking Status: Current every day smoker tobacco type: cigarettes Smoking cigarettes per day: less than 1/2 pack a day Do You Dip or Chew Tobacco: No Hx Alcohol Use: Yes Alcohol type: beer and wine alcohol intake frequency: holidays/special occasions only Hx Substance Use: Yes substance use type: prescription drug Substance Use Type Other:: morphine 15 mg Physical Exam Vital Signs Last Vital Signs Temp 36.4 C L 07/23/20 15:24 Pulse 60 07/23/20 15:24 Resp 18 07/23/20 15:24 BP 106/68 07/23/20 15:24 Pulse Ox 93 07/23/20 15:24 Testing Laboratory Results 07/23/20 05:24 07/23/20 05:24 Urine Color [place] 07/21/20 12:30 Urine Appearance Cloudy (Clear) A 07/21/20 12:30 Urine pH 5.0 (4.5-7.5) 07/21/20 12:30 Ur Specific [place] 1.021 (1.000-1.030) 07/21/20 12:30 Urine Protein Trace (Negative) H 07/21/20 12:30 Urine Glucose (UA) Negative (Negative) 07/21/20 12:30 Urine Ketones Trace (Negative) H 07/21/20 12:30 Urine Nitrite Negative (Negative) 07/21/20 12:30 Ur Leukocyte Esterase Trace (Negative) H 07/21/20 12:30 Urine WBC (Auto) 1-5 /hpf (0-5) 07/21/20 12:30 Urine RBC (Auto) 5-10 /hpf (0-4) H 07/21/20 12:30 U Hyaline Cast (Auto) 1-5 /lpf (0-5) 07/21/20 12:30 U Epithel Cells (Auto) 5-10 /lpf (0-5) H 07/21/20 12:30 Urine Bacteria (Auto) 1+ (Negative) H 07/21/20 12:30 07/21/20 12:30 Urine Culture - Final Urine,Clean Catch More than three types of organisms present, all low counts mixed probable skin samara. No further identifications or sensitivities to follow. Electrocardiogram Date: 12/12/19 trial-paced rhythm with prolonged AV conduction with Premature supraventricular complexes and with occasional Premature ventricular complexes Abnormal ECG When compared with ECG of 17-MAY-2019 17:11, Premature supraventricular complexes are now Present Nonspecific T wave abnormality now evident in Lateral leads Confirmed by Raffi Hnason ([id number]) on 12/12/2019 10:30:28 AM
[2020-07-23] MEDS: GABAPENTIN 300 MG CAP PO SCH (20:45)
[2020-07-24] MEDS: MoRPHine SULFATE 2 MG/ML CARP IV PRN ×3 (00:53→11:35)
[2020-07-24 03:33] LABS: Hepatitis A Antibody IgM NON-REACTIVE (NON-REACTIVE); Hepatitis B Core Antibody IgM NON-REACTIVE (NON-REACTIVE)
[2020-07-24] MEDS: SOTALOL HCL 80 MG TAB PO SCH ×2 (05:52→19:27)
[2020-07-24] MEDS: PANTOprazole 40 MG TAB PO SCH ×2 (07:34→20:10)
[2020-07-24] MEDS: METHOCARBAMOL 500 MG TABLET PO SCH ×2 (07:34→20:10)
[2020-07-24] MEDS: LORATADINE 10 MG TAB PO SCH (07:34)
[2020-07-24] MEDS: GABAPENTIN 300 MG CAP PO SCH ×2 (07:34→20:10)
[2020-07-24] MEDS: DULOXETINE HCL 60 MG CAP PO SCH (07:34)
[2020-07-24] MEDS: DULOXETINE HCL 20 MG CAP PO SCH (07:35)
[2020-07-24] MEDS: LIDOCAINE 5% 1 PATCH TD SCH (07:35)
--- NOTE | 2020-07-24 09:36 | History & Physical Bridge Note ---
Date of Service July 24, 2020 History & Physical Bridge Note I have examined the patient, reviewed the History & Physical, imaging and laboratory studies as well as patient's current EMR record. No changes noted. Trinidad Matt is a 64-year-old female with a history of left upper extremity radicular symptoms with documented (based on imaging) lumbar disc pathology. She has been offered left L4/L5 transforaminal epidural steroid injections as one treatment option. Prior to proceeding, potential risks and management reviewed. Potential risks including infection, bleeding, nerve injury, persistent pain at the injection site, reaction to any one of the medication used for the procedure, possibility of postdural puncture headache as well as persistent symptoms after the procedure were discussed with the patient. Patient was also informed that additional procedures may be required to treat the compli cations. Alternatives to this procedure were also discussed with the patient. Patient's questions were answered. Patient gave informed consent. No contraindication noted to proceed.
[2020-07-24] MEDS ORDERED: fentaNYL citrate 100 MCG/2 ML VIAL ONE (11:46)
[2020-07-24] MEDS ORDERED: MIDAZOLAM HCL 1 MG/ML 2ML VIAL ONE ×2 (12:21→13:10)
[2020-07-24] MEDS ORDERED: IOPAMIDOL INJ 61% 15 ML VIAL ONE (12:45)
[2020-07-24] MEDS ORDERED: TRIAMCINOLONE ACET 40 MG/ML VIAL ONE (13:09)
[2020-07-24] MEDS ORDERED: LIDOCAINE 2% 20 MG/ML 5 ML SYR IV ONE (13:17)
--- NOTE | 2020-07-24 13:26 | Operative Report ---
Post Operative Report Pre & Post Diagnosis Operation Date: 07/24/20 12:15 Pre-Op Diagnosis: Lumbar radiculopathy, acute Post-Op Diagnosis: Lumbar radiculopathy, acute I identified the patient and participated in the time-out.: Yes Procedure Operation Date: 07/24/20 12:15 Actual Procedures Left L4-L5 Transforaminal Steroid Injection(Left) - Tomasz Vallejo MD, LURDES Surgeon Tomasz Vallejo MD, LURDES Golf Manager None Estimated Blood Loss 0 Findings Consistent with Post-Op Diagnosis Specimens None Drains None Anesthesia Type Local Complications none Disposition Accompanied Patient To Recovery: No Disposition: Recovery Room Description of Procedure LUMBAR TRANSFORAMINAL EPIDURAL STEROID INJECTION Diagnosis: Lumbar radiculitis. Intervertebral disc disorder. Level injected: Left L4/L5 Surgeon: Dr. Vallejo Prior to starting, the Patients diagnosis and the procedure were reviewed with the patient in detail. Possible risks, complications and alternative therapies were also reviewed. Patients questions were answered. Informed consent was obtained. Allergies and medication list was reviewed. The patient was brought to the fluoroscopy room and placed in prone position on the table. Immediately prior to starting the procedure, a ``time out was conducted with the staff and the patient where the patient was identified, proposed procedure was verified, consent was reviewed and the proper site for the planned procedure was identified. Fluoroscopy was utilized in performing the procedure to assist the placement of the needle, to evaluate the final position of the needle prior to injection and to avoid intravascular injection. Monitors used included intermittent blood pressure with automated device, continuous pulse oximetry and level of consciousness. Patient was not given any intravenous sedation and constant verbal contact was maintained throughout the procedure. Biplanar fluoroscopy was used to assist in placement of the needle as well as to evaluate final needle position prior to the injection. On examination, no signs of skin breakdown or infection were noted at the injection site. Lumbar-sacral area was prepped with DuraPrep followed by Betadine solution. Sterile drapes were applied. The appropriate interspace and disk was identified in a true AP view. The fluoroscope was then rotated to obtain a decubitus view in such a manner so that the superior articular process of the inferior vertebra was bisecting the pars inter-articularis of the vertebra above in two. A 22 Gauge 3.5 inch curved (15 degrees) spinal needle was inserted through the skin and subcutaneous tissues, after infiltration of 2 cc of 2% Xylocaine MPF, and advanced in a co-axial technique. Needle tip was first placed on the infero-lateral margin of the pars inter-articularis. Once the bony margin was contacted, the C-arm was rotated to obtain a lateral view. The needle was slowly ``walked off the bone and advanced toward the anterior and superior aspect of the foramen. Patient did not experience any pain or paresthesia. Six inch micro bore tubing was attached to the needle and aspiration did not demonstrate CSF or blood. AP view was checked to ensure the needle tip was in close proximity to the nerve root in the proximal neural foramen lateral to the inferior articular process and in the 6 oclock position. 1 cc of Isovue 300 contrast was injected via the needle under live fluoroscopy. Spread of the contrast was noted in the epidural space and along the nerve root. Neither subdural or subarachnoid spread nor intravascular uptake was noted on plain fluoroscopy. Approximately 10 second digital subtraction angiogram at 8 f/s rate was done in AP view with additional contrast. No vascular uptake was noted. Next 80 mg of Kenalog was injected followed by 2 cc of 2% Xylocaine MPF to flush the needle. The patient did not experience pain during the injection. Adequate hemostasis was noted. A sterile Band-Aid was applied to the injection site. Patient was monitored for 30 minutes and discharged with an accompanying adult. Discharge instructions were reviewed with the patient/caregiver. Any specific q uestions were answered. Patient/caregiver voiced understanding of the instructions. Follow-up appointment has been scheduled. I attest to the content of the Intraoperative Record and any orders documented therein. Any exceptions are noted below.
[2020-07-24] MEDS ORDERED: ONDANSETRON INJ 2 MG/ML 2 ML VIAL ONE (13:39)
--- NOTE | 2020-07-24 13:41 | Pain Management Progress Note ---
Date of Service July 24, 2020 Assessment & Plan (1) Lumbar radiculopathy, acute: (2) Encounter for pre-operative examination: Admission and Anticipated Discharge Date Admission Date: July 21, 2020 Subjective Patient underwent a left L4-5 transforaminal injection this afternoon uneventfully. If her symptoms improve when she is evaluated for discharge, she may discharge tomorrow with a follow-up appointment to be scheduled at [facility] in 3 weeks for follow-up.
--- NOTE | 2020-07-24 13:47 | Anesthesiology Progress Note ---
Date of Service July 24, 2020 Anesthesia Post Procedure Vital Signs Vital Signs: Temp Pulse Pulse Resp BP BP Pulse Ox 07/24/20 13:27 36.4 C L 65 16 139/71 97 07/24/20 12:14 36.7 C 61 61 H 125/47 L 96 07/24/20 07:40 36.5 C 60 16 114/71 95 07/23/20 23:13 36.8 C 60 14 119/73 92 07/23/20 15:24 36.4 C L 60 18 106/68 93 Pain Intensity Left Leg: Pain Intensity: 3 Left Lower Back: Pain Intensity: 3 Transfer of Care Handoff Completed per policy Notes Mental Status: alert / awake / arousable Patient Amnestic to Procedure: Yes Nausea / Vomiting: adequately controlled Pain: adequately controlled Airway Patency, RR, SpO2: stable & adequate BP & HR: stable & adequate Hydration State: stable & adequate Anesthetic Complications: no major complications apparent and Pt Satisfied with anesthetic care
[2020-07-24] MEDS: OXYCODONE HCL IR 5 MG TAB (IMMEDIATE RELEASE) PO PRN (14:38)
--- NOTE | 2020-07-24 14:50 | Hospitalist Progress Note ---
Date of Service July 24, 2020 Assessment & Plan (1) Back pain: Acute on chronic LBP with new symptoms of numbness/tingling. CT lumbar spine on 07/21 with extensive degenerative changes, disc space narrowing and canal stenosis at L3-L4 due to a broad-based posterior disc bulge. Paresthesias suggest involvement of L3, L4 nerve root. - Continue pain regimen - Lidoderm patch - Continue home methocarbamol 500mg PO BID - Added Tylenol on 07/22 after LFTs improved. - PT/OT evaluation - Spine surgery consulted - Would prefer conservative management at this time. - Patient received L4 injection on 07/24 with pain management. Will monitor for improvement. (2) Abnormal LFTs: Patient with elevated liver studies - JIL=811, JSI=490, Tbili-1.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 - Tylenol level undetectable; HepB & HepC both negative. HepA pending. - RUQ u/s on 07/21 with 4mm CBD and no stones noted. - Repeat LFTs on 07/23 showed improving AST/ALT: 44/148. Discussed with patient. She reports she may have taken upwards of 2-3g of Tylenol for a few days in a row prior to admission, but not more. Additionally, this has occurred before without any acetaminophen consumption. As such, unclear cause at this time, though each episode self-resolves. GI notes from 05/14/2020 reviewed, and they feel it is a mild viral hepatitis. - Monitor (3) Ventricular tachycardia: Patient with VT arrest in 2017, AICD in place now. No discharges reported. She was seen by cardiology following ablation - per their note, patient DOES NOT have CAD but she has a NICM most consistent with cardiac sarcoid which has not been proven definitively. She follows routinely with Dr. Cartagena from [facility]. - Continue sotalol 120mg po BID - Maintain electrolytes - Avoid arrhythmogenic agents, QT prolonging agents where possible - Additional workup for NICM, possible cardiac sarcoidosis to be deferred to outpatient workday senior associate. (4) Hypertension: Blood pressure well-controlled at 120/75. Currently not on any antihypertensives. - Continue to monitor (5) Depression: Chronic. Well-controlled. - Continue Cymbalta 80 mg PO QAM (6) GERD (gastroesophageal reflux disease): Chronic. - Continue omeprazole 20mg po BID (7) DVT prophylaxis: SCDs - Low DVT risk per admission calculator; also holding after spinal injection. Admission and Anticipated Discharge Date Admission Date: July 21, 2020 Subjective Not much better immediately after injection. Reports no fevers/chills, chest pain, shortness of breath, abdominal pain, nausea, or vomiting. Physical Exam Constitutional: WD/WN, vitals as above Eyes: EOM intact bilaterally; no conjunctival abnormality ENMT: external ear and nose normal, oropharynx normal Neck: trachea midline, no thyromegaly normal visual inspection Respiratory: normal respiratory effort, lungs clear to auscultation no respiratory distress Cardiovascular: RRR, no murmur, no edema Gastrointestinal (Abdomen): Inspection/Auscultation: abdomen normal to inspection; abdomen not distended Musculoskeletal: no cyanosis or clubbing, extremities motor strength 5/5 Skin: no rashes, warm and dry Neurologic: moves all extremities and awake Psychiatric: Orientation: alert, oriented to person and cooperative Results & Data Results & Data ([facility]) Vital Signs (Past 12 Hours) Vital Signs Temp Pulse Pulse Resp BP Pulse Ox 07/24/20 14:20 36.4 C L 66 16 118/74 96 07/24/20 14:05 37 C 63 16 134/74 96 07/24/20 13:55 37 C 61 16 123/80 96 07/24/20 13:45 61 16 119/65 97 07/24/20 13:35 65 16 123/75 97 07/24/20 13:27 36.4 C L 65 16 139/71 97 07/24/20 12:14 36.7 C 61 61 H 125/47 L 96 07/24/20 07:40 36.5 C 60 16 114/71 95 PG Care Time/CCT Total # of Minutes Spent Total Time Spent with Patient: Total time spent is greater than 50% in coordination of care (as documented) at patient's floor/unit and/or counseling patient: Coding Level of Care Code 72553 Subseq Hosp Care Lvl 2 Diagnoses Back pain M54.42 Back pain location: low back pain Chronicity: acute Back pain laterality: left Sciatica presence: with sciatica Sciatica laterality: sciatica of left side Abnormal LFTs R94.5 Ventricular tachycardia I47.2 Hypertension I10 Hypertension type: essential hypertension Depression F32.9 Depression Type: major depressive disorder Major depression recurrence: unspecified whether recurrent Active/Remission status: remission status unspecified GERD (gastroesophageal reflux disease) K21.9 Esophagitis presence: esophagitis presence not specified DVT prophylaxis Z29.9 (1) Back pain Back pain location: low back pain Chronicity: acute Back pain laterality: left Sciatica presence: with sciatica Sciatica laterality: sciatica of left side Qualified Code(s): M54.42 - Lumbago with sciatica, left side (2) Hypertension Hypertension type: essential hypertension Qualified Code(s): I10 - Essential (primary) hypertension (3) Depression Depression Type: major depressive disorder Major depression recurrence: unspecified whether recurrent Active/Remission status: remission status unspecified Qualified Code(s): F32.9 - Major depressive disorder, single episode, unspecified (4) GERD (gastroesophageal reflux disease) Esophagitis presence: esophagitis presence not specified Qualified Code(s): K21.9 - Gastro-esophageal reflux disease without esophagitis
--- NOTE | 2020-07-24 17:27 | Electrocardiogram Report ---
Test Reason : Blood Pressure : / mmHG Vent. Rate : 060 BPM Atrial Rate : 060 BPM P-R Int : 306 ms QRS Dur : 106 ms QT Int : 450 ms P-R-T Axes : 000 001 018 degrees QTc Int : 450 ms Atrial-paced rhythm with prolonged AV conduction Abnormal ECG When compared with ECG of 12-DEC-2019 02:52, Premature ventricular complexes are no longer Present Premature supraventricular complexes are no longer Present Nonspecific T wave abnormality, improved in Inferior leads Nonspecific T wave abnormality no longer evident in Lateral leads Confirmed by Raffi Hanson ([id number]) on 07/24/2020 5:27:09 PM Referred By: REFERRED SELF Confirmed By:Olivier Hanson
[2020-07-24] MEDS ORDERED: SODIUM CHLORIDE 0.9% 1000ML 500 ML IV ONE (20:36)
[2020-07-24] MEDS ORDERED: SODIUM CHLORIDE 0.9% 1000ML 1,000 ML IV ONE ×2 (21:30→22:43)
[2020-07-25] MEDS: SOTALOL HCL 80 MG TAB PO SCH (06:27)
[2020-07-25 07:50] LABS: Hematocrit (blood only) 40.5 % (37-47); Hemoglobin 13.7 g/dL (12.0-16.0); Mean Corpuscular Hemoglobin 32.5 pg (25-34); Mean Corpuscular Hgb Conc 33.8 g/dL (32-36); Mean Corpuscular Volume 96.2 fL (80-100); Mean Platelet Volume 9.6 fL (7.4-10.4); Platelet Count 310 K/uL (130-400); RDW Coefficient of Variation 12.2 % (11.5-14.5); RDW Standard Deviation 42.6 fL (36.4-46.3); Red Blood Count 4.21 M/uL (4.2-5.4); White Blood Count 7.48 K/uL (4.8-10.8)
[2020-07-25 08:28] LABS: Albumin Globulin Ratio 0.8 (0.9-2); Albumin Level 3.2 gm/dl (3.4-5.0); BUN Creatinine Ratio 25.9 (10-20); Bilirubin,Total 0.5 mg/dl (0.2-1); Calcium 9.4 mg/dl (8.5-10.1); Creatinine Clr Calc Pharmacy 79.3 ml/min; Est GFR (African American) 107.2; Est GFR (Non-African American) 92.5; Globulin 4.1 gm/dl (2.5-4.0); Potassium 4.6 mmol/L (3.5-5.1); Total Protein 7.3 gm/dl (6.4-8.2)
[2020-07-25] MEDS: PANTOprazole 40 MG TAB PO SCH (08:29)
[2020-07-25] MEDS: LORATADINE 10 MG TAB PO SCH (08:29)
[2020-07-25] MEDS: METHOCARBAMOL 500 MG TABLET PO SCH (08:29)
[2020-07-25] MEDS: DULOXETINE HCL 20 MG CAP PO SCH (08:30)
[2020-07-25] MEDS: DULOXETINE HCL 60 MG CAP PO SCH (08:30)
[2020-07-25] MEDS: GABAPENTIN 300 MG CAP PO SCH (08:30)
[2020-07-25] MEDS: LIDOCAINE 5% 1 PATCH TD SCH (08:31)
--- NOTE | 2020-07-25 09:25 | Pain Management Progress Note ---
Date of Service July 25, 2020 Assessment & Plan (1) Lumbar radiculopathy, acute: Present on Admission?: Yes (2) Lumbar spinal stenosis: * Patient appears to have responded favorably to lumbar GERMAN. Expectations were discussed and she verbalized understanding. * Will follow-up with patient in outpatient setting with appointment scheduled in 2-3 weeks duration * Will sign off on patient at this time. Neurogenic claudication status: without neurogenic claudication Qualified Code(s): M48.061 - Spinal stenosis, lumbar region without neurogenic claudication Present on Admission?: Yes Admission and Anticipated Discharge Date Admission Date: July 21, 2020 Subjective Mrs. Matt is a 64-year-old white female who underwent a left L4-5 transforaminal GERMAN yesterday on 07/24/[address] Vallejo. Patient is reporting 90% resolution of left lower extremity radicular pain since time of th e procedure with improved ability to tolerate ambulation. She continues to describe some discomfort in the left gluteal area which is minimally improved at 25% only since the time of the GERMAN. She continues report some "weakness and giving out of her knee" with ambulation and continues utilize a walker. She has been to the bathroom multiple times with less discomfort. She has been utilizing Tylenol only for pain and has not been utilizing any opiates since the time of the GERMAN. She had no side effects in the procedure and is overall pleased with the results. Patient is rating her pain at a 2-5/10. Patient has no further constitutional complaints. Pain Assessment Pain Assessment Full Body Front + Back: 1. Left L4 radicular pain 2. Left gluteal pain Physical Exam Physical Exam: General: Patient lying quietly upon entering in no acute distress. Speech and thought process appropriate. Mood and affect appropriate. Cognition intact. Back/spine: Band-Aid removed for visual inspection. No evidence of edema, erythema or skin breakdown at site of GERMAN. Nontender over the midline, facet joints or SI joints. Minimally tender throughout the left gluteal region. No appreciable spasm or myoneural trigger points. Lower extremities: SLR negative bilaterally. Strength testing 5/5 and equal. Sensation intact without deficit. Neurologic: Cranial nerves grossly intact ambulation not witnessed.
--- NOTE | 2020-07-25 14:12 | Discharge Summary ---
Date of Service July 25, 2020 Admission HPI Per Admitting Provider Romy Matt is a 64yo C female with history of HTN, VT arrest s/p cardioversion, ablation, AICD in place. She presents today with complaints of severe low back pain, progressively worsening over the last 6 days. Pain is located in the left lower back above buttock with radiation down her lower leg. She had worsening pain this AM as well as tingling in her genitals and diminished sensation from the knee to ankle on the medial side of LLE. No falls, no trauma, no fever. She reports that her gait is unsteady and she needs to walk with support. Patient has chronic constipation and difficulty with bowel motility and incomplete emptying - she is being seen by GI at [facility] for this issue. She completed a Pelvic Floor PT program at [place] and is currently being seen at [facility] for biofeedback therapy. She reports that her constipation and bowels are stable - no bowel incontinence or retention. She denies urinary symptoms of dysuria/frequency/urgency/incontinence or retention. She was seen in the ER in [place] with acute back pain on and was given a short supply of Gabapentin 100mg po TID and Morphine 15mg po TID PRN. She has been taking these medications as well as Tylenol - reports taking at least 2 ES Tylenol daily. No additional complaints at this time. No Covid-19 concerns. Patient's daughter tested positive for Covid in April and has since recovered. Patient did not contract the illness. ER Course: Dexamethasone 10mg IV, Morphine 6mg IV, Zofran 4mg IV Principal Diagnosis L4 radiculopathy Discharge Exam Constitutional WD/WN, vitals as above Eyes EOM intact bilaterally; no conjunctival abnormality ENMT external ear and nose normal, oropharynx normal Neck trachea midline, no thyromegaly normal visual inspection Respiratory normal respiratory effort, lungs clear to auscultation no respiratory distress Cardiovascular RRR, no murmur, no edema Gastrointestinal (Abdomen) Inspection/Auscultation: abdomen normal to inspection; abdomen not distended Musculoskeletal no cyanosis or clubbing, extremities motor strength 5/5 Skin no rashes, warm and dry Neurologic moves all extremities and awake Psychiatric Orientation: alert, oriented to person and cooperative Discharge Data Allergies Allergy/AdvReac Type Severity Reaction Status Date / Time levofloxacin Allergy Severe per Verified 07/21/20 12:17 patent clerk to list for allergy d/t ? Vtach prochlorperazine Allergy Mild DISORIENTED Verified 07/21/20 12:17 amoxicillin Allergy Unknown RASH Verified 07/21/20 12:17 cephalexin Allergy Unknown HIVES Verified 07/21/20 12:17 clavulanic acid Allergy Unknown RASH Verified 07/21/20 12:17 Consultations 07/21/20 13:50 ED Decision to Admit Stat 07/21/20 18:55 Consult Orthopedic Surgery Routine 07/23/20 10:27 Consult Pain Management Routine 07/25/20 12:35 Burn CD for patient Routine Procedures Performed Operation Date: 07/24/20 12:15 Actual Procedures p Left L4-L5 Transforaminal Steroid Injection(Left) - Tomasz Vallejo MD, FIPP Ordered Studies 07/21/20 12:11 CT abd pelvis IV con only Stat CT lumbar spine wo con Stat 07/21/20 17:11 US liver Routine 07/24/20 12:15 FL fluoro for pain procedure Routine Hospital Course (1) Back pain: Acute on chronic LBP with new symptoms of numbness/tingling. CT lumbar spine on 07/21 with extensive degenerative changes, disc space narrowing and canal stenosis at L3-L4 due to a broad-based posterior disc bulge. Paresthesias suggest involvement of L3, L4 nerve root. - Lidoderm patch - Continue home methocarbamol 500mg PO BID - Spine surgery consulted - Would prefer conservative management at this time. - Patient received L4 injection on 07/24 with pain management. Improved substantially by 07/25 with further improvement expected in coming days per Pain Management team. Will follow up with them as outpatient in 2 weeks. (2) Abnormal LFTs: Patient with elevated liver studies - ISM=021, ZAM=714, Tbili-1.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 - Tylenol level undetectable; HepB & HepC both negative. HepA pending. - RUQ u/s on 07/21 with 4mm CBD and no stones noted. - Repeat LFTs on 07/23 showed improving AST/ALT: 32/98. Discussed with patient. She reports she may have taken upwards of 2-3g of Tylenol for a few days in a row prior to admission, but not more. Additionally, this has occurred before without any acetaminophen consumption. As such, unclear cause at this time, though each episode self-resolves. GI notes from 05/14/2020 reviewed, and they feel it is a mild viral hepatitis. - Can follow up with PCP or outpatient GI (3) Ventricular tachycardia: Patient with VT arrest in 2017, AICD in place now. No discharges reported. She was seen by cardiology following ablation - per their note, patient DOES NOT have CAD but she has a NICM most consistent with cardiac sarcoid which has not been proven definitively. She follows routinely with Dr. Cartagena from [facility]. - Continue sotalol 120mg po BID - Maintain electrolytes - Avoid arrhythmogenic agents, QT prolonging agents where possible - Additional workup for NICM, possible cardiac sarcoidosis to be deferred to outpatient patent clerk. (4) Hypertension: Blood pressure well-controlled at 120/75. Currently not on any antihypertensives. - Continue to monitor (5) Depression: Chronic. Well-controlled. - Continue Cymbalta 80 mg PO QAM (6) GERD (gastroesophageal reflux disease): Chronic. - Continue omeprazole 20mg po BID (7) DVT prophylaxis: SCDs - Low DVT risk per admission calculator; also holding after spinal injection. Total Time Total Time Spent Total Time Spent (In Minutes): 35 Discharge Plan Discharge Items Patient Disposition: Home - Self-Care Reason For Visit: ACUTE BACK PAIN, ELEVATED LFTS Discharge Diagnosis: L4 lumbar radiculopathy Activity: Resume your previous activity Non-emergency contact: Primary Care Provider and Pain Management Call non-emergency contact if: your pain is not controlled Follow-up/Referrals: Tomasz Vallejo MD, FIPP [Anesthesiologist] - 08/09/20 1:00 pm (Please follow up in 2-3 weeks in Pain Management Clinic) Josiah Mcknight DO [Primary Care Provider] - 08/02/20 10:00 am Diet: Regular Addtl Attending Provider Instructions: You were admitted to the hospital with L4 Lumbar radiculopathy pain. This did not respond incredibly well to medications, so the pain management team saw you and did an injection in the L4 region of your back. Dr. Ramirez on the spinal surgery team also saw you, and in discussions, felt that surgery was not the right option at this time. If the pain recurs or becomes intractable, this may be necessary, but hopefully we can avoid it for the foreseeable future. Your liver enzymes (sometimes called LFTs) were mildly elevated here as well. We do not have a great explanation for this as it seems unlikely that you were taking a large enough dose of Tylenol to do it. Additionally, all testing for viral causes of liver inflammation (called hepatitis) were negative. The ultrasound of your liver was also normal and showed no retained gallbladder stones that were in the common bile duct (the part that's left over after gallbladder surgery). This has happened a few other times in the past, and always returned to normal. Please follow up with your PCP and GI doctors on this. Pending Studies at Discharge: No Stand-Alone Forms: [facility] Medications and DC Order Prescriptions: New lidocaine [Lidocaine Pain Relief] 4 % adhesive patch,medicated 1 patch topical DAILY PRN (Reason: pain) Qty: 10 RF: 0 Continued pznnwqnhuj-cnrkwrlshobsz-mvse 50-325-40 mg tablet 1 tab PO Q4H PRN (Reason: headache) Qty: 30 RF: 3 duloxetine [Cymbalta] 60 mg capsule,delayed release(DR/EC) 60 mg PO QAM Qty: 90 RF: 1 omeprazole 20 mg capsule,delayed release(DR/EC) 20 mg PO BID Qty: 180 RF: 3 methocarbamol 500 mg tablet 500 mg PO BID Qty: 60 RF: 0 loratadine 10 mg tablet 10 mg PO QAM Qty: 90 RF: 3 albuterol sulfate [ProAir HFA] 90 mcg/actuation HFA aerosol inhaler 2 puff INHALATION Q6H PRN (Reason: Shortness Of Breath) Qty: 8 RF: 5 sotalol 120 mg tablet 120 mg PO Q12 RF: 0 ondansetron 4 mg tablet,disintegrating 4 mg PO Q6H PRN (Reason: nausea and vomiting) Qty: 12 RF: 0 morphine 15 mg tablet 15 mg PO Q4H PRN (Reason: Severe Pain (Scale Score 7-10)) RF: 0 mupirocin 2 % ointment 1 appln TOP BID PRN (Reason: .) RF: 0 azelastine 137 mcg (0.1 %) aerosol,spray 2 spray INTRANASAL QAM RF: 0 duloxetine [Cymbalta] 20 mg capsule,delayed release(DR/EC) 20 mg PO QAM RF: 0 gabapentin 100 mg capsule 100 mg PO TID Qty: 0 RF: 0 Discharge Orders: Discharge Order (Routine); Ordered 07/25/20 Ordered By: Boyd Lowe/Other Patient Handouts: Preventing Deep Vein Thrombosis Admission Data Admit Date/Time: 07/21/20 14:50 Attending Provider: Boyd Goode Admit Provider: Constance Arias Primary Care Provider: Josiah Mcknight Other Providers: Aadn Ramirez ; Khari Mendiola ; Sandie Jerry ; Tomasz Vallejo ; Saniya Gar Other Interventions: Discharge Summary Assessment (RN) Last Done: 07/25/20 11:26 Coding Level of Care Code D/C Day Management >30 mins Diagnoses Back pain M54.42 Back pain location: low back pain Chronicity: acute Back pain laterality: left Sciatica presence: with sciatica Sciatica laterality: sciatica of left side Abnormal LFTs R94.5 Ventricular tachycardia I47.2 Hypertension I10 Hypertension type: essential hypertension Depression F32.9 Depression Type: major depressive disorder Major depression recurrence: unspecified whether recurrent Active/Remission status: remission status unspecified GERD (gastroesophageal reflux disease) K21.9 Esophagitis presence: esophagitis presence not specified DVT prophylaxis Z29.9
== END 2020-07-25 13:20 | disposition home or self-care (01) | DRG 552 ==
LOC: ED 10:56 → SUATTDRO 14:50 → 3N 14:50
DX: I47.2 Ventricular tachycardia; F32.9 Major depressive disorder, single episode, unspecified; K21.9 Gastro-esophageal reflux disease without esophagitis; M51.16 Intervertebral disc disorders with radiculopathy, lumbar region; I10 Essential (primary) hypertension; E78.5 Hyperlipidemia, unspecified; F17.200 Nicotine dependence, unspecified, uncomplicated; Z79.899 Other long term (current) drug therapy

== ENCOUNTER 2022-09-01 08:31 | Inpatient (IN) ==
--- NOTE | 2022-08-12 11:48 | PAT Medication Instructions ---
Medication Instructions Date of Service August 12, 2022 Home Medications Medication Instructions Recorded Ventolin HFA 90 mcg/actuation 2 puff inhalation QID PRN 01/01/21 aerosol inhaler (albuterol sulfate) shortness of breath or wheezing #18 grams LUMBAR SUPPORT BACK BRACE #1 ea 08/22/21 nsahhsxvte-aiknvnswazacx-yjibkaoo 1 tab PO Q4H PRN headache #14 tabs 10/10/21 50 mg-325 mg-40 mg tablet azelastine 137 mcg (0.1 %) nasal 2 spray intranasal QAM #30 mL 11/12/21 spray aerosol hydrocortisone 2.5 % topical cream 1 applic [place] DAILY PRN hemorrhoids 12/16/21 with perineal applicator #30 grams (Proctosol HC) duloxetine 60 mg capsule,delayed 60 mg PO QAM #90 caps 04/24/22 release (Cymbalta) gabapentin 300 mg capsule 300 mg PO TID #90 caps 07/06/22 clonazepam 0.5 mg tablet (Klonopin) 0.5 mg PO TID #90 tabs 07/18/22 diltiazem HCl 30 mg tablet 30 mg PO TID #90 tabs 07/21/22 oxycodone-acetaminophen 5 mg-325 1 tab PO Q6H PRN pain #30 tabs 07/21/22 mg tablet (Percocet) sucralfate 100 mg/mL oral 10 ml PO QID #420 mL 08/07/22 suspension (Carafate) fluticasone propionate 50 mcg/actuation nasal spray,suspension 1 spray intranasal BID Ventolin HFA 90 mcg/actuation aerosol inhaler (albuterol sulfate) 2 puff inhalation QID PRN shortness of breath or wheezing sotalol 160 mg tablet 160 mg PO BID fmzqiexqxa-lvwkebhumeeey-peoftvpc 50 mg-325 mg-40 mg tablet 1 tab PO Q4H PRN headache azelastine 137 mcg (0.1 %) nasal spray aerosol 2 spray intranasal QAM hydrocortisone 2.5 % topical cream with perineal applicator (Proctosol HC) 1 applic [place] DAILY PRN hemorrhoids albuterol sulfate 1.25 mg/3 mL solution for nebulization 1.25 mg inhalation QID PRN sob duloxetine 60 mg capsule,delayed release (Cymbalta) 60 mg PO QAM gabapentin 300 mg capsule 300 mg PO TID clonazepam 0.5 mg tablet (Klonopin) 0.5 mg PO TID diltiazem HCl 30 mg tablet 30 mg PO TID oxycodone-acetaminophen 5 mg-325 mg tablet (Percocet) 1 tab PO Q6H PRN pain sucralfate 100 mg/mL oral suspension (Carafate) 10 ml PO QID Balance Of Nature 6 cap PO QAM Marcy (Digestive Health) 1 dose PO BID imipramine HCl 10 mg tablet 10 mg PO QAM loratadine 10 mg tablet (Claritin) 10 mg PO QAM omeprazole 20 mg capsule,delayed release 20 mg PO QAM ASK your surgeon for instructions fwvstnyknq-hhyljuayhusnb-lcxepstk 50 mg-325 mg-40 mg tablet 1 tab PO Q4H PRN headache ASK your prescriber and surgeon imipramine HCl 10 mg tablet 10 mg PO QAM STOP taking 2 weeks before surgery (or as soon as possible if surgery is within 2 weeks) Balance Of Nature 6 cap PO QAM [facility] (Digestive Health) 1 dose PO BID DO NOT take the morning of surgery hydrocortisone 2.5 % topical cream with perineal applicator (Proctosol HC) 1 applic [place] DAILY PRN hemorrhoids sucralfate 100 mg/mL oral suspension (Carafate) 10 ml PO QID loratadine 10 mg tablet (Claritin) 10 mg PO QAM Take morning of surgery With a small sip of water, OTHERWISE NOTHING TO EAT OR DRINK AFTER MIDNIGHT: fluticasone propionate 50 mcg/actuation nasal spray,suspension 1 spray intranasal BID Ventolin HFA 90 mcg/actuation aerosol inhaler (albuterol sulfate) 2 puff inhalation QID PRN shortness of breath or wheezing (if needed) sotalol 160 mg tablet 160 mg PO BID azelastine 137 mcg (0.1 %) nasal spray aerosol 2 spray intranasal QAM albuterol sulfate 1.25 mg/3 mL solution for nebulization 1.25 mg inhalation QID PRN sob (use if needed; please bring rescue inhaler with you to hospital day of surgery if possible) duloxetine 60 mg capsule,delayed release (Cymbalta) 60 mg PO QAM gabapentin 300 mg capsule 300 mg PO TID clonazepam 0.5 mg tablet (Klonopin) 0.5 mg PO TID diltiazem HCl 30 mg tablet 30 mg PO TID oxycodone-acetaminophen 5 mg-325 mg tablet (Percocet) 1 tab PO Q6H PRN pain (if needed) omeprazole 20 mg capsule,delayed release 20 mg PO QAM Take evening before surgery fluticasone propionate 50 mcg/actuation nasal spray,suspension 1 spray intranasal BID Ventolin HFA 90 mcg/actuation aerosol inhaler (albuterol sulfate) 2 puff inhalation QID PRN shortness of breath or wheezing (if needed) sotalol 160 mg tablet 160 mg PO BID hydrocortisone 2.5 % topical cream with perineal applicator (Proctosol HC) 1 applic [place] DAILY PRN hemorrhoids (if needed) albuterol sulfate 1.25 mg/3 mL solution for nebulization 1.25 mg inhalation QID PRN sob (if needed) gabapentin 300 mg capsule 300 mg PO TID clonazepam 0.5 mg tablet (Klonopin) 0.5 mg PO TID diltiazem HCl 30 mg tablet 30 mg PO TID oxycodone-acetaminophen 5 mg-325 mg tablet (Percocet) 1 tab PO Q6H PRN pain (if needed) sucralfate 100 mg/mL oral suspension (Carafate) 10 ml PO QID Other Notes If you have any questions please call us at [phone] or [phone] or [phone] or [phone]
--- NOTE | 2022-08-13 11:39 | Anesthesiology Consultation ---
Date of Service August 13, 2022 Assessment & Plan (1) Encounter for pre-operative examination: - COVID screening: Per assessment on 08/13: No current COVID-19 related symptoms. Travel screen negative. Patient vaccinated. Patient had Covid positive home test 07/25 (pt's tested positive then as well). Symptoms at time: congestion, fatigue > resolved. Patient did not have formal testing at that time. Covid test done 08/13 ([facility])- result was negative. - PCP office visit (07/28/22): "if she gets more sob or cp she is to call or go to the er. she is to let me know if her covid symptoms get worse.. she is going to discuss surgery with dr ramirez and let me know when she is going to have surgery so we can get her cleared with dr crawford." - Cardiology note (08/07/22): "She has compensated heart failure and does not require further risk stratification for surgery. She does have VT and has ICD that we will need to [be] managed with either reprogramming or with magnet during surgery." - Patient acceptable risk for surgery pending surgeon-ordered PCP preop evaluation ([facility]; scheduled 08/20). Chart Review Chart Review: Patient seen in Pre Admission Testing Teaching & Discussion Pre-Anesthesia Teaching/Discussion Notes: Instructed NPO after midnight before surgery,except medications with 15 cc of water. Medication instructions provided according to the PAT guidelines. History Surgery Operation Date: 09/05/22 12:00 Proposed Procedures p L2-L5 Decompression and Fusion - Adan Ramirez DO Height/Weight Height: 5 ft 10 in Weight: 67.9 kg Allergies Allergy/AdvReac Type Severity Reaction Status Date / Time levofloxacin Allergy Severe per Verified 08/11/22 15:35 field service rep to list for allergy d/t ? Vtach prochlorperazine Allergy Mild DISORIENTED Verified 08/11/22 15:35 amoxicillin Allergy Unknown RASH Verified 08/11/22 15:35 cephalexin Allergy Unknown HIVES Verified 08/11/22 15:35 clavulanic acid Allergy Unknown RASH Verified 08/11/22 15:35 clindamycin Allergy Nausea Verified 08/11/22 15:35 Medications Home Medications Medication Instructions Recorded Confirmed Last Taken fluticasone propionate 50 1 spray intranasal BID 11/28/20 08/11/22 Unknown mcg/actuation nasal spray,suspension Ventolin HFA 90 mcg/actuation 2 puff inhalation QID PRN 01/01/21 08/11/22 Unknown aerosol inhaler (albuterol sulfate) shortness of breath or wheezing #18 grams sotalol 160 mg tablet 160 mg PO BID 07/04/21 08/11/22 Unknown LUMBAR SUPPORT BACK BRACE #1 ea 08/22/21 08/11/22 Unknown kazktnpcpx-xemyoudxomowp-syujljjf 1 tab PO Q4H PRN headache #14 tabs 10/10/21 08/11/22 Unknown 50 mg-325 mg-40 mg tablet azelastine 137 mcg (0.1 %) nasal 2 spray intranasal QAM #30 mL 11/12/21 08/11/22 Unknown spray aerosol hydrocortisone 2.5 % topical cream 1 applic [place] DAILY PRN hemorrhoids 12/16/21 08/11/22 Unknown with perineal applicator #30 grams (Proctosol HC) albuterol sulfate 1.25 mg/3 mL 1.25 mg inhalation QID PRN sob 01/13/22 08/11/22 Unknown solution for nebulization duloxetine 60 mg capsule,delayed 60 mg PO QAM #90 caps 04/24/22 08/11/22 Unknown release (Cymbalta) gabapentin 300 mg capsule 300 mg PO TID #90 caps 07/06/22 08/11/22 Unknown clonazepam 0.5 mg tablet (Klonopin) 0.5 mg PO TID #90 tabs 07/18/22 08/11/22 Unknown diltiazem HCl 30 mg tablet 30 mg PO TID #90 tabs 07/21/22 08/11/22 Unknown oxycodone-acetaminophen 5 mg-325 1 tab PO Q6H PRN pain #30 tabs 07/21/22 08/11/22 Unknown mg tablet (Percocet) sucralfate 100 mg/mL oral 10 ml PO QID #420 mL 08/07/22 08/11/22 Unknown suspension (Carafate) Balance Of Nature 6 cap PO QAM 08/11/22 08/11/22 Unknown [facility] (Digestive Health) 1 dose PO BID 08/11/22 08/11/22 Unknown imipramine HCl 10 mg tablet 10 mg PO QAM 08/11/22 08/11/22 Unknown loratadine 10 mg tablet (Claritin) 10 mg PO QAM 08/11/22 08/11/22 Unknown omeprazole 20 mg capsule,delayed 20 mg PO QAM 08/11/22 08/11/22 Unknown release Past Medical History Medical History Anxiety Chronic SI joint pain Chronic sinusitis Depression Gastritis GERD (gastroesophageal reflux disease) H/O esophageal spasm History of migraine History of pulmonary embolism Approximately 3 years ago following cardiac ablation - treated with AC History of ventricular tachycardia 2017 (etiology unknown) Hyperlipidemia Hypertension IBS (irritable bowel syndrome) Migraine Mitral valve prolapse Moderate MVP, Mild to moderate MR, 2 jets are present per 12/2021 echo Osteoarthritis Osteopenia Presence of combination internal cardiac defibrillator (ICD) and pacemaker 2017 (for V.Tach, [employer]), two revisions (most recent 10/2018) Restless legs syndrome Spinal stenosis Exercise / Class Metabolic Activity II 4-5 Yardwork/Stairs/Walk up hill Past Family History Family History Father Family history of diabetes mellitus Myocardial infarction Other No family history of adverse response to anesthesia Denies family history of Ovarian cancer Prostate cancer Breast cancer Colorectal cancer Past Surgical History Surgical History H/O cardiac radiofrequency ablation x3 H/O hysterectomy with unilateral oophorectomy + appendectomy History of appendectomy History of bilateral tubal ligation History of cardiac cath 2017 > no stents History of cholecystectomy History of colonoscopy History of endoscopic sinus surgery x3 History of esophagogastroduodenoscopy (EGD) History of oral surgery History of ovarian cystectomy History of spinal surgery History of tonsillectomy History of tooth extraction History of total right knee replacement (TKR) History of wisdom tooth extraction S/P foot surgery, left multiple S/P foot surgery, right multiple Past Anesthesia History No Hx of Anesthesia Complications and No Family Hx of Anesthesia Complications History of PONV No Hx of PONV and No Hx of Motion Sickness Social History Smoking Status: Current every day smoker tobacco type: cigarettes Smoking cigarettes per day: 4-5 cigs/day Do You Dip or Chew Tobacco: No Hx Alcohol Use: No Hx Substance Use: No substance use type: does not use Substance Use Type Other:: morphine 15 mg Review of Systems Patient denies chest pain, shortness of breath, dyspnea on exertion, fever, chills, cough, wheezing, palpitations. Physical Exam Vital Signs VITALS BP 108/76 P 69 TEMP 98.5 SP02 99%RA RESP 16 PHYSICAL Full cervical extension range of motion. Full TMJ range of motion. TMD 3.5 finger breaths Mallampati Score 1 Dentition: intact, + several implants Lungs: clear throughout to auscultation Cardiac: regular rate and rhythm, no murmurs noted Spine: normal Carotid arteries: negative bruit Extremities: no edema Lab Results Anesthesia Preop Results Results Anesthesia Widget: PT 10.6 Seconds (9.0-12.0) 08/13/22 PTT 28.1 Seconds (21.0-31.0) 08/13/22 INR 1.0 (0.9-1.1) 08/13/22 Urine Color Yellow 08/13/22 Urine Appearance Clear (Clear) 08/13/22 Urine pH 7.0 (4.5-7.5) 08/13/22 Urine Specific [place] 1.006 (1.000-1.030) 08/13/22 Urine Protein Negative (Negative) 08/13/22 Urine Glucose (UA) Negative (Negative) 08/13/22 Urine Ketones Negative (Negative) 08/13/22 Urine Blood Negative (Negative) 08/13/22 Urine Nitrite Negative (Negative) 08/13/22 Urine Bilirubin Negative (Negative) 08/13/22 Urine Urobilinogen Negative (Negative) 08/13/22 Urine Leukocyte Esterase Negative (Negative) 08/13/22 Blood Type B Negative 08/13/22 Antibody Screen NEGATIVE 08/13/22 Testing Laboratory Results 07/24/22 WBC 5.18 H/H 13.0/38.2 PLATELETS 237 SODIUM 142 POTASSIUM 4.5 CHLORIDE 106 CO2 28 BUN 18 CREATININE 0.7 GLUCOSE 120 TROPONIN T <6 LIPASE 57 Electrocardiogram Date: 07/24/22 Atrial paced rhythm with prolonged AV conduction at 70 bpm. *Artifact. Chest X-Ray Date: 07/24/22 No acute lung disease. Left-sided pacer. Echocardiogram Date: 01/10/22 EF 60%. Grade 1 diastolic dysfunction. Mildly increased concentric LV wall thickness. Nondilated cardiac chambers. Moderate MVP. Mild to moderate MR. 2 jets are present. Mild CO. Mildly enlarged proximal ascending thoracic aorta. When compared to prior study from 12/2020 the MR is slightly worse per report. Stress Test Type: nuclear Cardiac Catheterization Date: 09/15/17 "On 09/15/17, she underwent cardiac catheterization which demonstrated mild luminal irregularities with no obstructive coronary artery disease and a preserved LVEF of 65%." per discharge summary. Attempts to obtain official report unsuccessful. Other Testing PET/CT SPECT study for cardiac sarcoidosis (12/14/18) No specific evidence of active cardiac sarcoidosis. SPECT myocardial perfusion at rest demonstrates small area of mild to moderate reduced uptake in the distal inferior wall and apex, and a pattern suggestive of bowel artifact. LVEF 64%. Incidental CT findings include left chest wall AICD. Pacer/ICD check (06/13/22) [employer]. AP 89%. 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 8.5 years battery longevity. COVID-19 Risk Screen Screening Information COVID-19 Screen Date: 08/13/22 Exposure 21 Days Family/Household +COVID Last 21 Days: Yes Exposure 10 Days Any COVID Exposure Last 10 Days: No Symptoms Last 10 Days Experienced COVID Sx Last 10 Days: No + COVID 0-90 Days COVID + in Last 0-90 Days: Yes + COVID Test 0-10 Day: No + COVID Test 11-90 Day: Yes
[~2022-09-01 08:31] MED LIST changes: +ACETAMINOPHEN 500 MG TAB PO SCH; -ALBU18002 INH; -AZEL30SP NAE; -BISM262T3 PO; -CHOL1000 PO; -CLAR250T PO; -CLR10 PO; -CYAN100020 PO; +CeleBREX 200 MG CAP PO SCH; -DULO60CA44 PO; -FLUT0.15 INTNAS; +GABAPENTIN 300 MG CAP PO SCH; +LR 15ML/HR IV SCH; -METO25TA56 PO; -METR-163 PO; -PRLSR20 PO; -RESVERATROL PO; -TURM1CAP4 PO; +ceFAZolin 2000MG 2,000 MG/15 ML SYR IV SCH
[2022-09-01] MEDS ORDERED: MIDAZOLAM HCL 1 MG/ML 2ML VIAL ONE (08:42)
[2022-09-01] MEDS ORDERED: HYDROmorphone INJ 2 MG/ML SYR/VIAL ONE (08:42)
--- NOTE | 2022-09-01 09:52 | History & Physical Bridge Note ---
Date of Service September 01, 2022 History & Physical Bridge Note I have examined the patient, reviewed the History & Physical and in the interval since the performance of the History & Physical I have noted the following changes of clinical significance: no changes noted
--- NOTE | 2022-09-01 09:53 | History & Physical Report ---
Date of Service September 01, 2022 Assessment & Plan (1) Neurogenic claudication due to lumbar spinal stenosis: Plan: L2-L5 decompression and fusion History of Present Illness Chief Complaint: Back and leg pain Primary Care Provider: Josiah Mcknight DO This is a 67-year-old female presents with chronic persistent back and leg pain. Failed extensive course of nonoperative care is here for surgical intervention. Allergies Allergy/AdvReac Type Severity Reaction Status Date / Time levofloxacin Allergy Severe per Verified 09/01/22 09:07 fountain helper to list for allergy d/t ? Vtach clindamycin Allergy Intermediate Nausea Verified 09/01/22 09:07 amoxicillin Allergy Mild RASH Verified 09/01/22 09:07 cephalexin Allergy Mild HIVES Verified 09/01/22 09:07 clavulanic acid Allergy Mild RASH Verified 09/01/22 09:07 prochlorperazine Allergy Mild DISORIENTED Verified 09/01/22 09:07 Home Medications Medication Instructions Recorded Confirmed Type fluticasone propionate 50 1 spray intranasal BID 11/28/20 09/01/22 History mcg/actuation nasal spray,suspension (Flonase Allergy Relief) Ventolin HFA 90 mcg/actuation 2 puff inhalation QID PRN 01/01/21 09/01/22 Rx aerosol inhaler (albuterol sulfate) shortness of breath or wheezing #18 grams sotalol 160 mg tablet 160 mg PO BID 07/04/21 09/01/22 History LUMBAR SUPPORT BACK BRACE #1 ea 08/22/21 08/11/22 Rx azelastine 137 mcg (0.1 %) nasal 2 spray intranasal QAM #30 mL 11/12/21 09/01/22 Rx spray aerosol hydrocortisone 2.5 % topical cream 1 applic [place] DAILY PRN hemorrhoids 12/16/21 09/01/22 Rx with perineal applicator #30 grams (Proctosol HC) albuterol sulfate 1.25 mg/3 mL 1.25 mg inhalation QID PRN sob 01/13/22 09/01/22 History solution for nebulization duloxetine 60 mg capsule,delayed 60 mg PO QAM #90 caps 04/24/22 09/01/22 Rx release (Cymbalta) diltiazem HCl 30 mg tablet 30 mg PO TID #90 tabs 07/21/22 09/01/22 Rx Balance Of Nature 6 cap PO QAM 08/11/22 09/01/22 History [facility] (Digestive Health) 1 dose PO BID 08/11/22 09/01/22 History loratadine 10 mg tablet (Claritin) 10 mg PO QAM 08/11/22 09/01/22 History omeprazole 20 mg capsule,delayed 20 mg PO QAM 08/11/22 09/01/22 History release oxycodone-acetaminophen 5 mg-325 1 tab PO Q6H PRN pain #30 tabs 08/18/22 09/01/22 Rx mg tablet (Percocet) clonazepam 0.5 mg tablet (Klonopin) 0.5 mg PO TID #90 tabs 08/19/22 09/01/22 Rx hyhccihcws-uuzcuaozzutys-ffbfouaa 1 tab PO Q4H PRN headache 09/01/22 09/01/22 History 50 mg-325 mg-40 mg tablet (Esgic) gabapentin 300 mg capsule 300 mg PO TID #270 caps 09/01/22 09/01/22 Rx Past Med/Surg History Medical History Anxiety Chronic SI joint pain Chronic sinusitis Depression Gastritis GERD (gastroesophageal reflux disease) H/O esophageal spasm History of migraine History of pulmonary embolism Approximately 3 years ago following cardiac ablation - treated with AC History of ventricular tachycardia 2016 (etiology unknown) Hyperlipidemia Hypertension IBS (irritable bowel syndrome) Migraine Mitral valve prolapse Moderate MVP, Mild to moderate MR, 2 jets are present per 12/2021 echo Osteoarthritis Osteopenia Presence of combination internal cardiac defibrillator (ICD) and pacemaker 2017 (for V.Tach, [employer]), two revisions (most recent 10/2018) Restless legs syndrome Spinal stenosis Surgical History H/O cardiac radiofrequency ablation x3 H/O hysterectomy with unilateral oophorectomy + appendectomy History of appendectomy History of bilateral tubal ligation History of cardiac cath 2017 > no stents History of cholecystectomy History of colonoscopy History of endoscopic sinus surgery x3 History of esophagogastroduodenoscopy (EGD) History of oral surgery History of ovarian cystectomy History of spinal surgery History of tonsillectomy History of tooth extraction History of total right knee replacement (TKR) History of wisdom tooth extraction S/P foot surgery, left multiple S/P foot surgery, right multiple Family History Father Family history of diabetes mellitus Myocardial infarction Other No family history of adverse response to anesthesia Denies family history of Ovarian cancer Prostate cancer Breast cancer Colorectal cancer Social History Smoking Status: Current every day smoker Age Started Using Tobacco: 23; packs per day: 0.5; Cigarettes Per Day: less than 1/2 pack a day; Second Hand Exposure: No; Do You Dip or Chew Tobacco: No; Tobacco Cessation Education Requested by Patient: No Hx Alcohol Use: No Hx Substance Use: No Preferred Language: Qatari Communication Ability: Effective Visual Impairment: Partially Limited Hearing Ability: Normal Selling Underwriter Required: No Beliefs That Will Affect Care: None marital status: Current Living Situation: Spouse Current Living Situation Comment: Lives with and adult son current occupational status: 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
[2022-09-01] MEDS ORDERED: BUPIVACAINE/EPINEPHRINE 0.25% 1:200,000 30 ML VIAL ONE (10:05)
[2022-09-01] MEDS ORDERED: LIDOCAINE 2% MPF LOCAL 5 ML VIAL INFIL ONE (10:59)
[2022-09-01] MEDS ORDERED: ONDANSETRON INJ 2 MG/ML 2 ML VIAL ONE (10:59)
[2022-09-01] MEDS ORDERED: PHENYLEPHRINE 100MCG/ML 5ML SYR ONE (10:59)
[2022-09-01] MEDS ORDERED: DEXAMETHASONE SOD INJ 4 MG/ML VIAL ONE (10:59)
[2022-09-01] MEDS ORDERED: GLYCOPYRROLATE 0.2 MG/ML VIAL ONE (10:59)
[2022-09-01] MEDS ORDERED: NEOSTIGMINE METHYLSULFATE 1 MG/ML 10ML VIAL ONE (10:59)
[2022-09-01] MEDS ORDERED: PROPOFOL IV EMULSION 10 MG/ML 20 ML VIAL IV ONE (10:59)
[2022-09-01] MEDS ORDERED: ROCURONIUM BROMIDE 10 MG/ML 5 ML VIAL IV ONE (11:18)
[2022-09-01] MEDS ORDERED: FLOSEAL HEMOSTATIC MATRIX 10ML TOP ONE (11:20)
--- NOTE | 2022-09-01 11:37 | Operative Report ---
Post Operative Report Pre & Post Diagnosis Operation Date: 09/01/22 10:05 Pre-Op Diagnosis: Neurogenic Claudication due to Lumbar Spinal Stenosis L2-L4 Post-Op Diagnosis: Neurogenic Claudication due to Lumbar Spinal Stenosis L2-L4 I identified the patient and participated in the time-out.: Yes Procedure Operation Date: 09/01/22 10:05 Actual Procedures #1 revision decompression bilateral medial facetectomies L2-L3 L3-L4. #2 placement of Coflex 14 mm implant at L2-L3 and 16mm implant at L3-L4. Surgeon Adan Ramirez, Forest Products Gatherer Gabriella Cohen Estimated Blood Loss 20 Findings Consistent with Post-Op Diagnosis Specimens None Indications This is a 67-year-old female who presents with bulge diagnosis after failing course of nonoperative care she is here for the above-mentioned procedure. Description of Procedure Patient was met with identified informed consent obtained. Patient was then taken to the operative suite underwent a patient placed in a prone position jacks table top [place] frame. All bony prominences well-padded eyes inspected to ensure no external pressure placed upon the. This point the lumbar spine was prepped and draped in a sterile fashion. The assistance of fluoroscopy identified the L2-L3 L3-L4 L4-5 levels. Sharp dissection with assistance of Bov ie cautery performed down to and exposing the interlaminar space at L2-L3 and L3-L4. L4-5 appear to be quite stable and we chose not to address this at this time. Then performed a midline revision decompression including bilateral medial facetectomies and foraminotomies at L2-L3 L3-L4. I then chose to place a Coflex 14 mm in size at the L2-L3 and a 16mm size at L3-L4 this demonstrated excellent placement and additional stability to the decompressions. Incision was then copiously irrigated and a 15 round ADALBERTO drain inserted. The incisions were then closed with 1 Vicryl the fascia 2-0 Vicryl subcutaneously and 4 Monocryl for final closure. Steri-Strip Steri-Strip placed. Patient waken taken to recovery in stable condition. Please note Gabriella Cohen was present at the entire procedure and while the patient positioning complex portions of the surgery and final skin closure. I attest to the content of the Intraoperative Record and any orders documented therein. Any exceptions are noted below.
[2022-09-01] MEDS ORDERED: fentaNYL citrate 100 MCG/2 ML VIAL IV PRN (11:58)
[2022-09-01] MEDS ORDERED: ePHEDrine sulfate 50 MG/ML AMP IV PRN (11:58)
[2022-09-01] MEDS ORDERED: HYDROmorphone INJ 1 MG/ML SYRINGE IV PRN ×2 (11:58→13:12)
[2022-09-01] MEDS ORDERED: ONDANSETRON INJ 2 MG/ML 2 ML VIAL IV PRN ×2 (11:58→13:12)
[2022-09-01] MEDS ORDERED: LABETALOL HCL IV 5 MG/ML 20ML IV PRN (11:58)
[2022-09-01] MEDS ORDERED: ATROPINE SULFATE 0.1 MG/ML 10ML SYR IV PRN (11:58)
--- NOTE | 2022-09-01 12:00 | Fluoroscopy Report ---
FL lumbar spine 2-3V CLINICAL HISTORY: L2-L5 DECOMPRESSION AND FUSION TECHNIQUE: 4 views were obtained with the C-arm in the OR with the above procedure. Total fluoroscopy time was 8 seconds. Comparison: None available at the time of this dictation. FINDINGS/IMPRESSION: Intraoperative images were obtained of L2-L4 decompression. Please correlate with intraoperative fluoroscopy and operative report. ACT 112: Negative or not required by law. Electronically signed by: Mario Jackson M.D. 09/01/2022 11:58 AM
--- NOTE | 2022-09-01 12:46 | Anesthesiology Progress Note ---
Date of Service September 01, 2022 Anesthesia Post Procedure Vital Signs Vital Signs: Temp Pulse Pulse Resp BP Pulse Ox O2 Del Method 09/01/22 12:40 72 15 113/77 93 Room Air 09/01/22 12:30 36.2 C L 71 11 L 120/81 93 Room Air 09/01/22 12:20 71 13 127/81 95 Oxymask 09/01/22 12:10 71 21 129/69 100 Oxymask 09/01/22 12:00 73 14 145/81 H 100 Oxymask 09/01/22 11:50 36 C L 62 12 124/75 100 Oxymask 09/01/22 09:16 36.8 C 68 18 104/82 95 Room Air O2 Flow Rate 09/01/22 12:40 09/01/22 12:30 09/01/22 12:20 3 09/01/22 12:10 7 09/01/22 12:00 7 09/01/22 11:50 5 09/01/22 09:16 Pain Intensity Lower Back: Pain Intensity: 8 Bilateral Thigh: Pain Intensity: 7 Transfer of Care Handoff Completed per policy Notes Mental Status: alert / awake / arousable Patient Amnestic to Procedure: Yes Nausea / Vomiting: adequately controlled Pain: adequately controlled Airway Patency, RR, SpO2: stable & adequate BP & HR: stable & adequate Hydration State: stable & adequate Anesthetic Complications: no major complications apparent
[2022-09-01] MEDS ORDERED: FAMOTIDINE 20 MG TAB PO PRN (13:12)
[2022-09-01] MEDS ORDERED: traMADol HCL 50 MG TABLET PO PRN (13:12)
[2022-09-01] MEDS ORDERED: SOD PHOSPHATE/SOD BIPHOSPHATE ENEMA 132 ML BTL PR PRN (13:12)
[2022-09-01] MEDS ORDERED: bisacodyL 10 MG SUPP PR PRN (13:12)
[2022-09-01] MEDS ORDERED: HYDROmorphone INJ 0.5 MG/0.5 ML SYR IV PRN (13:12)
[2022-09-01] MEDS ORDERED: ALBUTEROL 0.083% NEBU SOLN 3 ML VIAL INH PRN (13:12)
[2022-09-01] MEDS ORDERED: ALUMINUM/MAGNESIUM SUSP 30 ML UDC PO PRN (13:12)
[2022-09-01] MEDS ORDERED: hydrOXYzine HCl 25 MG TAB PO PRN (13:12)
[2022-09-01] MEDS ORDERED: ONDANSETRON 4 MG OD TAB PO PRN (13:12)
[2022-09-01] MEDS ORDERED: LORazepam 0.5 MG TAB PO PRN (13:12)
[2022-09-01] MEDS ORDERED: ALBUTEROL HFA 8 GM INHALER INH PRN (13:12)
[2022-09-01] MEDS ORDERED: METOCLOPRAMIDE HCL INJ 5 MG/ML 2 ML VIAL IV PRN (13:12)
[2022-09-01] MEDS ORDERED: MAGNESIUM HYDROXIDE SUSP 30 ML UDC PO PRN (13:12)
[2022-09-01] MEDS ORDERED: LORazepam 0.5 MG in SYRINGE 0 ML IV PRN (13:12)
[2022-09-01] MEDS ORDERED: ACETAMINOPHEN 1,000 MG/100 ML VIAL IV PRN (13:12)
[2022-09-01] MEDS ORDERED: PROMETHAZINE HCL 12.5 MG in SODIUM CHLORIDE 0.9% 50 ML IV PRN (13:12)
[2022-09-01] MEDS ORDERED: ACETAMINOPHEN 500 MG TAB PO PRN (13:12)
[2022-09-01] MEDS ORDERED: NALOXONE HCL 0.4 MG/1 ML VIAL/CARP IV PRN (13:12)
[2022-09-01] MEDS ORDERED: diphenhydrAMINE Capsule 25 MG CAP PO PRN (13:12)
[2022-09-01] MEDS: LACTATED RINGER'S 1,000 ML IV SCH (13:16)
--- NOTE | 2022-09-01 13:40 | Hospitalist Consultation ---
Date of Consultation September 01, 2022 Assessment & Plan (1) Hypertension: Trinidad is a 67-year-old female with a past medical history of ICD, OR, hypertension, hyperlipidemia, gastritis, depression, sinusitis, anxiety who presented for scheduled surgical intervention of neurogenic claudication due to stenosis at L2-L4. She is s/p #1 revision decompression bilateral medial facetectomies L2-L3 L3-L4. #2 placement of Coflex 14 mm implant at L2-L3 and 16mm implant at L3-L4 on 09/01/2022, we have been consulted for medical management of comorbidities. Recurrent V. tach, history of ICD placement, compensated heart failure Seen for cardiology clearance 07/2022. No further optimized we will risk factors at that visit, recommended to continue with surgical intervention Continue sotalol 160 mg p.o. twice daily BMP daily, optimize magnesium 2.0 potassium 4.0 Continue sotalol Echo 12/2021: LV EF 60%, grade 1 diastolic dysfunction, mildly concentric LV wall thickness increase, moderate mitral valve prolapse, mild to moderate mitral regurg, normal IVC size and collapsibility GERD Continue PPI, convert omeprazole to Protonix daily while inpatient Esophageal spasm Continue diltiazem 30 mg p.o. 3 times daily. Of note patient takes this for spasm and not for hypertension, and notes has been effective and reduces episodes which presented as severe cramping midsternal chest pain. Hyperlipidemia Last LDL [id number], total cholesterol 205 Recommend follow-up as outpatient with repeat lipid profile testing, statin addition based on absolute results/10-year ASCVD risk Depression/anxiety Continue clonazepam 0.5 mg p.o. 3 times daily chronic treatment for anxiety. Recommend outpatient follow-up with PCP for controlled taper of benzodiazepine treatment of anxiety Continue duloxetine DVT prophylaxis, pain control per primary team Diet: Heart healthy CODE STATUS: Full code (2) Hyperlipidemia: (3) GERD (gastroesophageal reflux disease): (4) Former smoker: (5) Lumbar pain: (6) Recurrent ventricular tachycardia: (7) Anxiety: History of Present Illness Attending Physician: Adan Ramirez, DO History of Present Illness rTinidad is a 67-year-old female with a past medical history of ICD, OR, hypertension, hyperlipidemia, gastritis, depression, sinusitis, anxiety who presented for scheduled surgical intervention of neurogenic claudication due to stenosis at L2-L4. She is s/p #1 revision decompression bilateral medial facetectomies L2-L3 L3-L4. #2 placement of Coflex 14 mm implant at L2-L3 and 16mm implant at L3-L4 on 09/01/2022, we have been consulted for medical management of comorbidities. Trinidad is seen at the bedside postoperatively. She reports she has some pain in her low back around where the procedure was done, otherwise feels well. Has no shortness of breath, difficulty breathing, lightheadedness, dizziness, chest pain, chest pressure, palpitations, or abdominal pain. She has no pain, numbness, or tingling in her arms or legs bilaterally. She does have to use the restroom to pee, otherwise feels well with no acute concerns. Medical History: Reviewed Medications: Reviewed Surgical History: Reviewed Allergies: Reviewed Social History: Reviewed Code Status: Full code Allergies Allergy/AdvReac Type Severity Reaction Status Date / Time levofloxacin Allergy Severe per Verified 09/01/22 09:07 critical care unit manager to list for allergy d/t ? Vtach clindamycin Allergy Intermediate Nausea Verified 09/01/22 09:07 amoxicillin Allergy Mild RASH Verified 09/01/22 09:07 cephalexin Allergy Mild HIVES Verified 09/01/22 09:07 clavulanic acid Allergy Mild RASH Verified 09/01/22 09:07 prochlorperazine Allergy Mild DISORIENTED Verified 09/01/22 09:07 Home Medications Medication Instructions Recorded Confirmed Type fluticasone propionate 50 1 spray intranasal BID 11/28/20 09/01/22 History mcg/actuation nasal spray,suspension (Flonase Allergy Relief) Ventolin HFA 90 mcg/actuation 2 puff inhalation QID PRN 01/01/21 09/01/22 Rx aerosol inhaler (albuterol sulfate) shortness of breath or wheezing #18 grams sotalol 160 mg tablet 160 mg PO BID 07/04/21 09/01/22 History LUMBAR SUPPORT BACK BRACE #1 ea 08/22/21 08/11/22 Rx azelastine 137 mcg (0.1 %) nasal 2 spray intranasal QAM #30 mL 11/12/21 09/01/22 Rx spray aerosol hydrocortisone 2.5 % topical cream 1 applic WI DAILY PRN hemorrhoids 12/16/21 09/01/22 Rx with perineal applicator #30 grams (Proctosol HC) albuterol sulfate 1.25 mg/3 mL 1.25 mg inhalation QID PRN sob 01/13/22 09/01/22 History solution for nebulization duloxetine 60 mg capsule,delayed 60 mg PO QAM #90 caps 04/24/22 09/01/22 Rx release (Cymbalta) diltiazem HCl 30 mg tablet 30 mg PO TID #90 tabs 07/21/22 09/01/22 Rx Balance Of Nature 6 cap PO QAM 08/11/22 09/01/22 History Marcy ([facility]) 1 dose PO BID 08/11/22 09/01/22 History loratadine 10 mg tablet (Claritin) 10 mg PO QAM 08/11/22 09/01/22 History omeprazole 20 mg capsule,delayed 20 mg PO QAM 08/11/22 09/01/22 History release oxycodone-acetaminophen 5 mg-325 1 tab PO Q6H PRN pain #30 tabs 08/18/22 09/01/22 Rx mg tablet (Percocet) clonazepam 0.5 mg tablet (Klonopin) 0.5 mg PO TID #90 tabs 08/19/22 09/01/22 Rx iwtniyxnqx-autijroxsphzq-gbzcvhkz 1 tab PO Q4H PRN headache 09/01/22 09/01/22 History 50 mg-325 mg-40 mg tablet (Esgic) gabapentin 300 mg capsule 300 mg PO TID #270 caps 09/01/22 09/01/22 Rx Patient History Medical History Anxiety Chronic SI joint pain Chronic sinusitis Depression Gastritis GERD (gastroesophageal reflux disease) H/O esophageal spasm History of migraine History of pulmonary embolism Approximately 3 years ago following cardiac ablation - treated with AC History of ventricular tachycardia 2017 (etiology unknown) Hyperlipidemia Hypertension IBS (irritable bowel syndrome) Migraine Mitral valve prolapse Moderate MVP, Mild to moderate MR, 2 jets are present per 12/2021 echo Osteoarthritis Osteopenia Presence of combination internal cardiac defibrillator (ICD) and pacemaker 2017 (for V.Tach, [employer]), two revisions (most recent 10/2018) Restless legs syndrome Spinal stenosis Surgical History H/O cardiac radiofrequency ablation x3 H/O hysterectomy with unilateral oophorectomy + appendectomy History of appendectomy History of bilateral tubal ligation History of cardiac cath 2017 > no stents History of cholecystectomy History of colonoscopy History of endoscopic sinus surgery x3 History of esophagogastroduodenoscopy (EGD) History of oral surgery History of ovarian cystectomy History of spinal surgery History of tonsillectomy History of tooth extraction History of total right knee replacement (TKR) History of wisdom tooth extraction S/P foot surgery, left multiple S/P foot surgery, right multiple Family History Father Family history of diabetes mellitus Myocardial infarction Other No family history of adverse response to anesthesia Denies family history of Ovarian cancer Prostate cancer Breast cancer Colorectal cancer Social History Smoking Status: Current every day smoker Age Started Using Tobacco: 23; packs per day: 0.5; Cigarettes Per Day: less than 1/2 pack a day; Second Hand Exposure: No; Do You Dip or Chew Tobacco: No; Tobacco Cessation Education Requested by Patient: No Hx Alcohol Use: No Hx Substance Use: No Preferred Language: Brazilian Communication Ability: Effective Visual Impairment: Partially Limited Hearing Ability: Normal Assistant Baseball Coach Required: No Beliefs That Will Affect Care: None marital status: Current Living Situation: Spouse Current Living Situation Comment: Lives with and adult son current occupational status: 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 NAD. Cooperative. Skin: ADALBERTO drain in place draining serous to serosanguineous fluid, scant amount less than 15 cc HEENT: Atraumatic, normocephalic. Pulm: CTAB A&P. -wheezes, -rales, -rhonchi. Symmetrical chest rise. No increased work of breathing. No respiratory distress. Cardiac: RRR, -mrg. Radial pulses intact and symmetrical. Abdominal: Nontender, nondistended, soft. BS present. Extremities: Moves arms and legs equally. Sensation to soft touch intact in hands and feet bilaterally. Ankle dorsiflexion/plantarflexion and director education strength 5/5 bilaterally. Cap refill in the hallux brisk bilaterally. Radial pulse intact and symmetrical bilaterally Results & Data Results & Data ([facility]) Vital Signs (Past 12 Hours) Vital Signs Temp Pulse Pulse Resp BP Pulse Ox O2 Del Method 09/01/22 13:32 36.9 C 71 16 104/68 97 Nasal Cannula 09/01/22 13:05 Nasal Cannula 09/01/22 13:05 36.4 C L 72 16 105/66 94 Nasal Cannula 09/01/22 12:50 70 17 102/67 95 Nasal Cannula 09/01/22 12:40 72 15 113/77 94 Nasal Cannula 09/01/22 12:30 36.2 C L 71 11 L 120/81 93 Room Air 09/01/22 12:20 71 13 127/81 95 Oxymask 09/01/22 12:10 71 21 129/69 100 Oxymask 09/01/22 12:00 73 14 145/81 H 100 Oxymask 09/01/22 11:50 36 C L 62 12 124/75 100 Oxymask 09/01/22 09:16 36.8 C 68 18 104/82 95 Room Air O2 Flow Rate 09/01/22 13:32 3 09/01/22 13:05 4 09/01/22 13:05 4 09/01/22 12:50 2 09/01/22 12:40 2 09/01/22 12:30 09/01/22 12:20 3 09/01/22 12:10 7 09/01/22 12:00 7 09/01/22 11:50 5 09/01/22 09:16 PG Care Time/CCT Total # of Minutes Spent Total Time Spent with Patient: Total time spent is greater than 50% in coordination of care (as documented) at patient's floor/unit and/or counseling patient: Coding Level of Care Code 23029 Inpt Consult Level 4 Diagnoses Hypertension I10 Hypertension type: essential hypertension Hyperlipidemia E78.5 GERD (gastroesophageal reflux disease) K21.9 Esophagitis presence: esophagitis presence not specified Former smoker Z87.891 Lumbar pain M54.5 Recurrent ventricular tachycardia I47.2 Anxiety F41.9 (1) GERD (gastroesophageal reflux disease) Esophagitis presence: esophagitis presence not specified Qualified Code(s): K21.9 - Gastro-esophageal reflux disease without esophagitis (2) Hypertension Hypertension type: essential hypertension Qualified Code(s): I10 - Essential (primary) hypertension
[2022-09-01] MEDS: GABAPENTIN 300 MG CAP PO SCH ×2 (14:12→21:01)
[2022-09-01] MEDS: clonazePAM 0.5 MG TAB PO SCH ×2 (14:12→21:01)
[2022-09-01] MEDS: dilTIAZem HCL 30 MG TAB PO SCH ×2 (15:23→21:01)
[2022-09-01] MEDS: ceFAZolin 1000MG 1,000 MG/7.5 ML SYR IV SCH (17:19)
[2022-09-01] MEDS: SOTALOL HCL 80 MG TAB PO SCH (18:06)
[2022-09-01] MEDS: oxyCODONE HCL IR 5 MG TAB (IMMEDIATE RELEASE) PO PRN ×2 (19:42→23:46)
[2022-09-01] MEDS: DOCUSATE SODIUM/SENNA 50/8.6MG TAB PO SCH (21:01)
[2022-09-02] MEDS: LACTATED RINGER'S 1,000 ML IV SCH (00:16)
[2022-09-02] MEDS: ceFAZolin 1000MG 1,000 MG/7.5 ML SYR IV SCH (01:54)
[2022-09-02] MEDS: SOTALOL HCL 80 MG TAB PO SCH ×2 (06:07→18:11)
[2022-09-02] MEDS: POLYETHYLENE (MIRALAX) 17 GM PACK PO SCH ×4 (06:07→20:58)
[2022-09-02] MEDS: oxyCODONE HCL IR 5 MG TAB (IMMEDIATE RELEASE) PO PRN ×3 (08:21→20:45)
[2022-09-02] MEDS: DULoxetine HCL 20 MG CAP PO SCH (08:22)
[2022-09-02] MEDS: LORATADINE 10 MG TAB PO SCH (08:22)
[2022-09-02] MEDS: GABAPENTIN 300 MG CAP PO SCH ×3 (08:22→20:57)
[2022-09-02] MEDS: PANTOprazole 40 MG TAB PO SCH (08:22)
[2022-09-02] MEDS: dilTIAZem HCL 30 MG TAB PO SCH ×3 (08:22→20:57)
[2022-09-02] MEDS: DULoxetine HCL 60 MG CAP PO SCH (08:22)
[2022-09-02] MEDS: dexAMETHasone 6 MG in SYRINGE 0 ML IV SCH (08:23)
[2022-09-02] MEDS: clonazePAM 0.5 MG TAB PO SCH ×3 (08:23→20:57)
--- NOTE | 2022-09-02 09:40 | Orthopedic Progress Note ---
Date of Service September 02, 2022 Assessment & Plan (1) Neurogenic claudication due to lumbar spinal stenosis: Plan: We will begin physical therapy monitor ADALBERTO output anticipate discharge home tomorrow. Admission and Anticipated Discharge Date Admission Date: September 01, 2022 Subjective Back pain is controlled patient has no leg pain Physical Exam Physical Exam: Patient is strength testing. Appears comfortable. Results & Data ([facility]) Vital Signs (Past 12 Hours) Vital Signs Temp Pulse Resp BP BP Pulse Ox O2 Del Method 09/02/22 07:57 36.7 C 68 14 101/66 94 Room Air 09/02/22 06:12 36.7 C 68 18 95/61 L 94 Room Air 09/01/22 23:30 36.4 C L 71 18 117/73 94 Room Air
[2022-09-02 11:02] LABS: Hematocrit (blood only) 34.4 % (34.1-44.9); Mean Corpuscular Hemoglobin 32.7 pg (25.0-34.0); Mean Corpuscular Hgb Conc 34.9 g/dL (32.0-36.0); Mean Corpuscular Volume 93.7 fL (80.0-100.0); Mean Platelet Volume 9.7 fL (9.4-12.3); Platelet Count 233 K/uL (130-400); RDW Coefficient of Variation 11.7 % (11.5-14.5); RDW Standard Deviation 40.3 fL (36.4-46.3); Red Blood Count 3.67 M/uL (3.93-5.22); White Blood Count 12.43 K/ul (4.8-10.8)
[2022-09-02 11:22] LABS: Basophils # (auto) 0.01 K/uL (0-0.2); Basophils % (auto) 0.1 %; Immature Granulocytes # (auto) 0.03 K/uL (0.00-0.02); Immature Granulocytes % (auto) 0.2 %; Lymphocytes # (auto) 0.68 K/uL (1.2-3.4); Lymphocytes % (auto) 5.5 %; Monocytes # (auto) 0.44 K/uL (0.24-0.82); Monocytes % (auto) 3.5 %; Neutrophils # (auto) 11.27 K/uL (1.4-6.5); Neutrophils % (auto) 90.7 %; Toxic Vacuolation 1+
[2022-09-02 11:24] LABS: BUN Creatinine Ratio 22.7 (10-20); Calcium 9.4 mg/dl (8.5-10.1); Creatinine Clr Calc Pharmacy 86.2 ml/min; Est GFR (African American) 104.5 ml/min; Est GFR (Non-African American) 90.1 ml/min; Potassium 4.1 mmol/L (3.5-5.1)
--- NOTE | 2022-09-02 16:02 | Hospitalist Progress Note ---
Date of Service September 02, 2022 Assessment & Plan (1) Lumbar radiculopathy: Plan: Trinidad is a 67-year-old female with a past medical history of ICD, PA, hypertension, hyperlipidemia, gastritis, depression, sinusitis, anxiety who presented for scheduled surgical intervention of neurogenic claudication due to stenosis at L2-L4. She is s/p #1 revision decompression bilateral medial facetectomies L2-L3 L3-L4. #2 placement of Coflex 14 mm implant at L2-L3 and 16mm implant at L3-L4 on 09/01/2022, we have been consulted for medical management of comorbidities. s/p lumbar fusion and decompression with Dr. Ramirez on 09/01 doing well post-op continue pain control hgb fairly stable post-op vitals acceptable post-op management as per Ortho (2) Chronic constipation: Plan: for the last 5 years since her cardiac arrest. has had multiple colonoscopies and EGDs, tried numerous medications finally improved on a holistic medicine called Marcy with probiotics-she brought it in from home -opioids worsening this from surgery -give bisacodyl VT x 1 now continue Miralax, senna/docusate (3) Hypertension: (4) GERD (gastroesophageal reflux disease): Plan: continue PPI continue diltiazem 30mg qac for esohageal spasm (5) Recurrent ventricular tachycardia: Plan: Recurrent V. tach, history of ICD placement, compensated heart failure. No known cause, cardiac cath clean at that time. Seen for cardiology clearance 07/2022. No further optimized we will risk fact ors at that visit, recommended to continue with surgical intervention Continue sotalol 160 mg p.o. twice daily BMP daily, optimize magnesium 2.0 potassium 4.0 Continue sotalol Echo 12/2021: LV EF 60%, grade 1 diastolic dysfunction, mildly concentric LV wall thickness increase, moderate mitral valve prolapse, mild to moderate mitral regurg, normal IVC size and collapsibility (6) Anxiety: Plan: Depression/anxiety Continue clonazepam 0.5 mg p.o. 3 times daily chronic treatment for anxiety. Recommend outpatient follow-up with PCP for controlled taper of benzodiazepine treatment of anxiety Continue duloxetine Plan DVT proph-SCDs Dispo-continued stay, possible dc to home tomorrow Admission and Anticipated Discharge Date Admission Date: September 01, 2022 Subjective Pt feeling well other than her constipation and some mild nausea from that. Pain is controlled. Review of Systems Review of Systems: All systems reviewed & are unremarkable except as noted in HPI & below Physical Exam Constitutional: WD/WN, vitals as above Eyes: + anicteric sclerae Neck: trachea midline, no thyromegaly Respiratory: normal respiratory effort, lungs clear to auscultation Cardiovascular: RRR, no murmur, no edema Chest (Breasts): Chest: normal inspection of chest Gastrointestinal (Abdomen): normal bowel sounds, soft, nontender, no hepatosplenomegaly Musculoskeletal: Extremities: extremities normal to inspection; no cyanosis and no clubbing Skin: no rashes, warm and dry Neurologic: moves all extremities and awake; no focal motor deficits Psychiatric: A+Ox3, euthymic affect Lymphatic: no lymphedema Results & Data Results & Data ([facility]) Vital Signs (Past 12 Hours) Vital Signs Temp Pulse Pulse Resp BP BP Pulse Ox 09/02/22 15:28 37.1 C 68 16 115/69 97 09/02/22 10:51 36.6 C 67 12 108/64 93 09/02/22 07:57 36.7 C 68 14 101/66 94 09/02/22 06:12 36.7 C 68 18 95/61 L 94 O2 Del Method 09/02/22 15:28 Room Air 09/02/22 10:51 Room Air 09/02/22 07:57 Room Air 09/02/22 06:12 Room Air Laboratory Results 09/02/22 10:44 09/02/22 10:44 PG Care Time/CCT Total # of Minutes Spent Total Time Spent with Patient: Total time spent is greater than 50% in coordination of care (as documented) at patient's floor/unit and/or counseling patient: Coding Level of Care Code 21310 Subseq Hosp Care Lvl 2 Diagnoses Lumbar radiculopathy M54.16 Chronic constipation K59.09 Hypertension I10 Hypertension type: essential hypertension GERD (gastroesophageal reflux disease) K21.9 Esophagitis presence: esophagitis presence not specified Recurrent ventricular tachycardia I47.2 Anxiety F41.9 (1) Hypertension Hypertension type: essential hypertension Qualified Code(s): I10 - Essential (primary) hypertension (2) GERD (gastroesophageal reflux disease) Esophagitis presence: esophagitis presence not specified Qualified Code(s): K21.9 - Gastro-esophageal reflux disease without esophagitis
[2022-09-02] MEDS: DOCUSATE SODIUM/SENNA 50/8.6MG TAB PO SCH (20:57)
[2022-09-02] MEDS: [UNRECOGNIZED DRUG - REMARK] PO SCH (21:02)
[2022-09-03] MEDS: SOTALOL HCL 80 MG TAB PO SCH (05:54)
[2022-09-03] MEDS: POLYETHYLENE (MIRALAX) 17 GM PACK PO SCH (05:54)
[2022-09-03] MEDS: oxyCODONE HCL IR 5 MG TAB (IMMEDIATE RELEASE) PO PRN (05:55)
[2022-09-03 07:24] LABS: Basophils # (auto) 0.01 K/uL (0-0.2); Basophils % (auto) 0.1 %; Hematocrit (blood only) 33.9 % (34.1-44.9); Hemoglobin 11.8 g/dl (12.0-16.0); Immature Granulocytes # (auto) 0.05 K/uL (0.00-0.02); Immature Granulocytes % (auto) 0.4 %; Lymphocytes % (auto) 12.7 %; Mean Corpuscular Hemoglobin 32.7 pg (25.0-34.0); Mean Corpuscular Hgb Conc 34.8 g/dL (32.0-36.0); Mean Corpuscular Volume 93.9 fL (80.0-100.0); Mean Platelet Volume 9.9 fL (9.4-12.3); Monocytes % (auto) 7.6 %; Neutrophils # (auto) 9.39 K/uL (1.4-6.5); Neutrophils % (auto) 79.2 %; Platelet Count 237 K/uL (130-400); RDW Coefficient of Variation 11.9 % (11.5-14.5); RDW Standard Deviation 41.1 fL (36.4-46.3); Red Blood Count 3.61 M/uL (3.93-5.22); White Blood Count 11.85 K/ul (4.8-10.8)
[2022-09-03 07:44] LABS: BUN Creatinine Ratio 31.3 (10-20); Calcium 9.1 mg/dl (8.5-10.1); Creatinine Clr Calc Pharmacy 84.9 ml/min; Est GFR (African American) 103.9 ml/min; Est GFR (Non-African American) 89.7 ml/min; Magnesium 1.9 mg/dl (1.7-2.4)
--- NOTE | 2022-09-03 08:57 | Discharge Summary ---
Date of Service September 03, 2022 Admission HPI Per Admitting Provider This is a 67-year-old female presents with chronic persistent back and leg pain. Failed extensive course of nonoperative care is here for surgical intervention. Admission Exam (Per Admitting) Constitutional + thin Eyes normal visual villan[place]va by confrontation ENMT external ear and nose normal, oropharynx normal Neck normal visual inspection Respiratory normal respiratory effort Cardiovascular Extremities: normal capillary refill Gastrointestinal (Abdomen) Inspection/Auscultation: abdomen normal to inspection Musculoskeletal Spine: + pain with thoraco-lumbar ROM Extremities: extremities normal to inspection Skin no rashes, warm and dry Neurologic normal touch/pain/proprioception and moves all extremities Psychiatric A+Ox3, euthymic affect Apperance: appropriately dressed Eye Contact: good eye contact Speech: normal rate/rhythm/volume of speech Discharge Data Consultations 09/01/22 13:12 Consult Hospitalist Routine Procedures Performed Operation Date: 09/01/22 10:05 Actual Procedures p L2-L4 Decompression and Fusion, with Application of Coflex (Not Applicable) - Adan Ramirez DO Hospital Course (1) Lumbar radiculopathy: Trinidad is postoperative day 2 status post lumbar decompression with Coflex implants L2-3, L3-4. She is being discharged home today. She is had an uneventful hospital course. She is had a bowel movement. She is participating in physical therapy and ambulating over 600 feet yesterday plus the hallways. ADALBERTO drain output last shift was 30 cc. Discharge Instructions ACTIVITY RECOMMENDATIONS: SELF CARE INSTRUCTIONS AFTER THORACIC/LUMBAR FUSIONS 1. You may walk to your tolerance. It is good exercise for your legs and back. Expect some back and intermittent leg aches and pains. 2. You may perform "counter-top" level activities (make a sandwich, quinn with a project, etc.). 3. No bending or lifting of more than 10 pounds or back twisting of any nature (roll like a log when turning in bed). 4. You may ride in a car for 20-30 minutes at a time. No driving until after your first visit with your doctor. 5. Frequent changes of position and restricting sitting to 30 minutes at a time will help limit the amount of back spasms and stiffness you may experience. 6. You may discontinue the use of ambulatory aids (cane, crutches, etc.) once your strength and confidence allow. 7. You may concrete wall grinder operator the shower and let water strike your incision when you arrive home at least once daily. Do not take a tub bath, sit in a hot tub or go into a swimming pool until after your first recheck in the office. SPECIAL CARE INSTRUCTIONS: VERY IMPORTANT TO READ AND REVIEW A. Your surgical incision has been closed with a cosmetic suture under the skin that will dissolve in about 6 weeks. In 14 days, you can use a pair of clean scissors and cut the suture that is left outside of the skin at the ends of your incision. 1. The small skin tapes can be removed 7 days after surgery if they have not fallen off by that point. 2. You may keep the wound open to air as much as possible to promote healing after post-op day number 5 unless told otherwise by your doctor. 3. If you think the wound looks like it is becoming infected (redness or worsening drainage) and/or you are experiencing fever, chill or worsening back pain and muscle spasms, contact the office so that we may evaluate you as soon as possible. B. Complications are uncommon, but please contact us if you have any signs or symptoms of: 1. wound infection (fever higher than 102.5 degrees F, redness, separation of wound, drainage, or increasing pain from the incision) 2. blood clots in legs (pain, swelling, redness and warmth in legs) 3. urinary tract infection (fever higher than 102.5 degrees F, burning upon urination or increased frequency of urination) 4. nerve problems (inability to walk on your toes or heels, numbness, loss of bowel or bladder control) 5. any other symptoms that concern you C. Please call the office at if you have any concerns or questions about your operation or recovery. D. No smoking! Smoking drastically decreases the chance of a solid fusion. E. Do not take any anti-inflammatory medications (Indocin, Advil, Motrin, Aspirin, Naprosyn, etc.) as these may inhibit the chance of a solid fusion. Tylenol is okay to take for pain. MANAGING PAIN AFTER SPINAL SURGERY 1. Narcotic medication is intended for short-term use and will be provided for surgical pain. Surgical pain usually lasts for a period of 4-6 weeks. Narcotic medication includes Percocet, Vicodin, Darvocet, Tylenol #3 or Lortab. 2. Longer-term pain is more appropriately treated with non-narcotic medication such as Tylenol ES. 3. Muscle spasm is not appropriately treated with narcotics. Muscle relaxers such as Soma, Flexeril or Skelaxin can be used along with Tylenol ES. 4. Remember that we all live with some "aches and pains". This is not unusual or uncommon after an injury or as we get older. a. Back pain is expected and may include muscle spasms for 4 to 6 weeks after surgery. The pain should gradually improve. If the pain worsens for no apparent reason, please contact the office. b. Intermittent leg pain may also be experienced and should not be concerned about unless it worsens for no apparent reason. If so, please contact the office. 5. We will provide appropriate medication within the normal guidelines of their prescribed use. We will also be very cautious and aware of potential abuse and extended duration of patients' medication needs. a. Pain medications are for your comfort and to assist with sleep and rest so that the tissue can heal. They are not provided in order to return to normal activity and should not be used through the day. To do so or worsening pain at night can result from ongoing tissue damage and dev elopment of tolerance to the prescribed medicine. 6. Please allow 2-3 days to process refills. Prescriptions will not be mailed but must be picked up at the office. FOLLOW UP VISIT: Keep your scheduled follow-up appointment. Any questions, please call the office at .
[2022-09-03] MEDS: [UNRECOGNIZED DRUG - REMARK] PO SCH (08:58)
[2022-09-03] MEDS: dilTIAZem HCL 30 MG TAB PO SCH (08:58)
[2022-09-03] MEDS: GABAPENTIN 300 MG CAP PO SCH (08:58)
[2022-09-03] MEDS: dexAMETHasone 6 MG in SYRINGE 0 ML IV SCH (08:58)
[2022-09-03] MEDS: LORATADINE 10 MG TAB PO SCH (08:59)
[2022-09-03] MEDS: DULoxetine HCL 60 MG CAP PO SCH (09:02)
[2022-09-03] MEDS: PANTOprazole 40 MG TAB PO SCH (09:02)
[2022-09-03] MEDS: DULoxetine HCL 20 MG CAP PO SCH (09:02)
[2022-09-03] MEDS: clonazePAM 0.5 MG TAB PO SCH (09:05)
== END 2022-09-03 11:23 | disposition home or self-care (01) | DRG 518 ==
LOC: ASU 08:31 → 3E 11:44

== ENCOUNTER 2023-10-28 14:32 | Inpatient (IN) ==
[2023-10-28] MEDS ORDERED: traMADol HCL 50 MG TABLET PO PRN (15:33)
[2023-10-28] MEDS ORDERED: LORazepam 0.5 MG in SYRINGE 0.25 ML IV PRN (15:33)
[2023-10-28] MEDS ORDERED: oxyCODONE HCL IR 5 MG TAB (IMMEDIATE RELEASE) PO PRN (15:33)
[2023-10-28] MEDS ORDERED: LORazepam 0.5 MG TAB PO PRN (15:33)
[2023-10-28] MEDS ORDERED: METOCLOPRAMIDE HCL INJ 5 MG/ML 2 ML VIAL IV PRN (15:33)
[2023-10-28] MEDS ORDERED: PROMETHAZINE HCL 12.5 MG in SODIUM CHLORIDE 0.9% 50 ML IV PRN (15:33)
[2023-10-28] MEDS ORDERED: ACETAMINOPHEN 1,000 MG/100 ML VIAL IV PRN (15:33)
[2023-10-28] MEDS ORDERED: ONDANSETRON 4 MG OD TAB PO PRN (15:33)
[2023-10-28] MEDS ORDERED: ACETAMINOPHEN 500 MG TAB PO PRN (15:33)
[2023-10-28] MEDS ORDERED: NALOXONE HCL 0.4 MG/1 ML VIAL/CARP IV PRN (15:33)
[2023-10-28] MEDS ORDERED: ONDANSETRON INJ 2 MG/ML 2 ML VIAL IV PRN (15:33)
[2023-10-28] MEDS ORDERED: HYDROmorphone INJ 0.5 MG/0.5 ML SYR IV PRN (15:33)
[2023-10-28] MEDS ORDERED: INFLUENZA VACCINE HIGH-DOSE (HD-IIV4) PF 65+ 0.7mL SYR IM ONE (15:35)
--- NOTE | 2023-10-28 16:02 | History & Physical Report ---
Date of Service October 28, 2023 Assessment & Plan (1) Lumbar disc herniation with radiculopathy: Plan: CAT scan the lumbar spine available for review demonstrates evidence of a foraminal disc herniation L4-L5 the left completely occupying the canal. There is evidence of decompression and Coflex implants at the L2-L3 L3-L4 levels. Plan and leg discussed today with the patient and her regarding her imaging and treatment plan. She is in obvious distress and medications not providing any relief. Subsequently recommending surgery. It would require complete facetectomy and discectomy at L4-5 on the left creating iatrogenic instability and subsequent fusion at L4-5. Risk benefits pros cons alternatives were all in detail. At this time we will make her n.p.o. after midnight and plan for surgery tomorrow so that we can begin rehab as soon as possible. Patient stands agrees. Admission and Anticipated Discharge Date Admission Date: October 28, 2023 History of Present Illness Chief Complaint: Severe left leg pain Primary Care Provider: Josiah Mcknight DO This is a 68-year-old female known to the presents with 2 weeks of excruciating left leg pain. She states it begins in the left buttock posterior lateral thigh extending to the anterior knee anterior tibia into her ankle. She denies any significant trauma fall or event. The right lower extremity asymptomatic. She has been in the ER 2 times for pain control and management. She has been unable to sleep. Ambulation is all but impossible secondary to the pain. Allergies Allergy/AdvReac Type Severity Reaction Status Date / Time levofloxacin Allergy Severe per Verified 08/26/23 11:08 music promoter to list for allergy d/t ? Vtach clindamycin Allergy Intermediate Nausea Verified 08/26/23 11:08 amoxicillin Allergy Mild RASH Verified 08/26/23 11:08 cephalexin Allergy Mild HIVES Verified 08/26/23 11:08 clavulanic acid Allergy Mild RASH Verified 08/26/23 11:08 prochlorperazine Allergy Mild DISORIENTED Verified 08/26/23 11:08 droperidol AdvReac Intermediate Pt. states Verified 08/26/23 11:08 medication made her "jumpy & unsettled." ketorolac [From Toradol] AdvReac Intermediate Pt. states Verified 08/26/23 11:08 medication made her "jumpy & unsettled." metoclopramide [From Reglan] AdvReac Intermediate Pt. states Verified 08/26/23 11:08 medication made her "jumpy & unsettled." Home Medications Medication Instructions Recorded Confirmed Type Ventolin HFA 90 mcg/actuation 2 puff inhalation QID PRN 01/01/21 06/28/23 Rx aerosol inhaler (albuterol sulfate) shortness of breath or wheezing #18 grams sotalol 160 mg tablet 160 mg PO BID 07/04/21 08/26/23 History LUMBAR SUPPORT BACK BRACE #1 ea 08/22/21 06/24/23 Rx albuterol sulfate 1.25 mg/3 mL 1.25 mg inhalation QID PRN sob 01/13/22 06/28/23 History solution for nebulization loratadine 10 mg tablet (Claritin) 10 mg PO QAM 08/11/22 08/26/23 History rkroivlofg-mtsnfutfunlum-tdmaagge 1 tab PO Q4H PRN headache 09/01/22 08/26/23 History 50 mg-325 mg-40 mg tablet (Esgic) gabapentin 300 mg capsule See Rx Instructions .Route .COMPLEX 03/10/23 08/26/23 History aluminum hydrox-magnesium carb 95 15 ml PO DAILY PRN Gi Upset 05/19/23 08/26/23 History mg-358 mg/15 mL oral suspension (Gaviscon) azelastine 137 mcg (0.1 %) nasal 2 spray intranasal QAM PRN 05/19/23 08/26/23 History spray aerosol Congestion fluticasone propionate 50 1 spray intranasal BID PRN 05/19/23 08/26/23 History mcg/actuation nasal Congestion spray,suspension (Flonase Allergy Relief) metronidazole 1 % topical gel with 1 applic topical DAILY #55 grams 05/19/23 06/28/23 Rx pump hydrocortisone 2.5 % topical cream 1 applic [place] DAILY PRN hemorrhoids 05/20/23 08/26/23 Rx with perineal applicator #30 grams (Proctosol HC) aloe vera 25 mg capsule 50 mg (2 x 25 mg) PO BID #60 caps 06/03/23 06/28/23 Rx ondansetron 4 mg disintegrating 4 mg PO Q8H PRN NAUSEA/VOMITING 06/16/23 08/26/23 History tablet coenzyme Q10 100 mg capsule (Co 100 mg PO DAILY 06/24/23 08/26/23 History Q-10) buprenorphine HCl 8 mg sublingual 8 mg sublingual DAILY 08/26/23 08/26/23 History tablet cholecalciferol (vitamin D3) 125 125 mcg PO DAILY 08/26/23 08/26/23 History mcg (5,000 unit) capsule magnesium hydroxide 1,200 mg mg PO 08/26/23 08/26/23 History chewable tablet mecobalamin (vitamin B12) 1,000 1,000 mcg PO DAILY 08/26/23 08/26/23 History mcg chewable tablet nystatin 500,000 unit tablet 500,000 unit PO TID 08/26/23 08/26/23 History duloxetine 60 mg capsule,delayed 60 mg PO QAM #90 caps 09/16/23 Rx release (Cymbalta) molnupiravir 200 mg capsule (EUA) 800 mg (4 x 200 mg) PO Q12H 5 days 10/06/23 Rx #40 caps omeprazole 20 mg capsule,delayed 20 mg PO BID #180 caps 10/14/23 Rx release cyclobenzaprine 10 mg tablet 10 mg PO TID 10/26/23 History prednisone 20 mg tablet See Rx Instructions PO .COMPLEX 10/26/23 History Past Med/Surg History Medical History Anxiety Chronic constipation Chronic SI joint pain Chronic sinusitis Depression Gastritis GERD (gastroesophageal reflux disease) H/O esophageal spasm History of migraine History of pulmonary embolism Approximately 3 years ago following cardiac ablation - treated with AC History of ventricular tachycardia 2016 (etiology unknown) Hyperlipidemia Hypertension IBS (irritable bowel syndrome) Migraine Mitral valve prolapse Moderate MVP, Mild to moderate MR, 2 jets are present per 12/2021 echo Osteoarthritis Osteopenia Presence of combination internal cardiac defibrillator (ICD) and pacemaker 2017 (for V.Tach, [employer]), two revisions (most recent 10/2018) Restless legs syndrome Spinal stenosis Surgical History H/O cardiac radiofrequency ablation x3 H/O hysterectomy with unilateral oophorectomy + appendectomy History of appendectomy History of bilateral tubal ligation History of cardiac cath 2017 > no stents History of cholecystectomy History of colonoscopy History of endoscopic sinus surgery x3 History of esophagogastroduodenoscopy (EGD) History of oral surgery History of ovarian cystectomy History of spinal surgery History of tonsillectomy History of tooth extraction History of total right knee replacement (TKR) History of wisdom tooth extraction S/P foot surgery, left multiple S/P foot surgery, right multiple Family History Father Family history of diabetes mellitus Myocardial infarction Other No family history of adverse response to anesthesia Denies family history of Ovarian cancer Prostate cancer Breast cancer Colorectal cancer Social History Smoking Status: Former smoker Age Started Using Tobacco: 23; packs per day: 0.5; Cigarettes Per Day: 4-5 cigs/day; Second Hand Exposure: No; Do You Dip or Chew Tobacco: No; Hx Alcohol Use: No Hx Substance Use: No Preferred Language: Burundian Communication Ability: Effective Visual Impairment: No Limitations Hearing Ability: Normal Forestry Faculty Member Required: No Beliefs That Will Affect Care: None marital status: Current Living Situation: Spouse Current Living Situation Comment: Lives with and adult son current occupational status: retired 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 She is in obvious distress. She has significant tension signs with even modest leg raising on the left. Negative on the right. Plantarflexion dorsiflexion appear to be symmetric and intact. Quadriceps are breakaway weakness secondary to pain. Sensory is symmetric. Deep tendon reflexes absent. Results & Data Results & Data Vital Signs (Past 12 Hours) Vital Signs Temp Pulse Resp BP Pulse Ox O2 Del Method 10/28/23 15:21 37 C 70 16 124/79 95 Room Air Code Status & VTE Plan VTE Prophylaxis Plan VTE Prophylaxis will be ordered: Yes
[2023-10-28] MEDS ORDERED: Nursing to Pharmacy Communication SCH ×2 (16:15→16:45)
[2023-10-28 16:32] LABS: Hematocrit (blood only) 41.5 % (37.0-47.0); Hemoglobin 13.7 g/dl (12.0-16.0); Immature Granulocytes # (auto) 0.03 K/uL (0.01-0.20); Immature Granulocytes % (auto) 0.4 %; Lymphocytes # (auto) 0.79 K/uL (1.20-3.40); Lymphocytes % (auto) 11.2 %; Mean Corpuscular Hemoglobin 31.7 pg (25.0-34.0); Mean Corpuscular Volume 96.1 fL (80.0-100.0); Mean Platelet Volume 9.6 fL (9.4-12.4); Monocytes # (auto) 0.25 K/uL (0.11-0.59); Monocytes % (auto) 3.5 %; Neutrophils # (auto) 5.98 K/uL (1.40-6.50); Neutrophils % (auto) 84.9 %; Platelet Count 253 K/uL (130-400); RDW Coefficient of Variation 12.2 % (11.5-14.5); RDW Standard Deviation 43.2 fL (36.4-46.3); Red Blood Count 4.32 M/uL (4.20-5.40); White Blood Count 7.05 K/ul (4.8-10.8)
[2023-10-28 16:51] LABS: Albumin Globulin Ratio 1.7 (0.9-2); Albumin Level 4.3 gm/dl (3.4-5.0); BUN Creatinine Ratio 24.6 (10-20); Bilirubin,Total 0.7 mg/dl (0.2-1.0); Calcium 9.1 mg/dl (8.6-10.3); Creatinine Clr Calc Pharmacy 94.1 ml/min; Est GFR (African American) 108.9 ml/min; Est GFR (Non-African American) 93.9 ml/min; Globulin 2.6 gm/dl (2.5-4.0); Potassium 4.2 mmol/L (3.5-5.1); Total Protein 6.9 gm/dl (6.0-8.3)
[2023-10-28] MEDS: LACTATED RINGER'S 1,000 ML IV SCH (16:53)
--- NOTE | 2023-10-28 17:29 | Hospitalist Consultation ---
Date of Consultation October 28, 2023 Assessment & Plan (1) Lumbar disc herniation with radiculopathy: Admitted under orthospine, Dr Ramirez Pain control, antiemetics prn IVF, pain control, bowel regimen per primary service NPO at midnight for potential surgery tomorrow CXR ordered for pre-op clearance, also EKG as patient on sotalol BID as below/hx VT. No CP/palpitations reported -- Sotalol dosing to 630am/pm as taking at home. Messaged primary about monitoring on med-tele post op to be safe unless otherwise stated by cards, consult placed Messaged primary about holding buprenorphine to prevent precipitating withdrawal but will continue for now. May need increased opiates for pain control --> IV Dilaudid/oxycodone available as needed per primary service Gabapentin dosing changed to 400mg BID as taking most recently Monitor labs in AM (stable at present time) (2) Presence of combination internal cardiac defibrillator (ICD) and pacemaker: Hx recurrent Vtach, s/p ablation. Follows with [facility] Cardiology. Noted ICD in place. placed 2017 (for V.Tach, [employer]), 3 revisions, 2 ablations EKG ordered for pre-op clearance as well as cardiology consult. NO CP/palpitations reported consider monitored bed post-op (3) GERD (gastroesophageal reflux disease): continue PPI BID (on omeprazole BID at home) (4) Depression: continues on duloxetine 50mg daily (suspect to help w/ baseline pain control). Prior on clonazepam but was weaned off last year Ativan available per primary for spasm/pains (5) Anxiety: as above Plan Thank you for allowing hospitalist service to participate in the care of Ms Matt. Cards consult/EKG/CXR as outlined for pre-op clearance, NPO at midnight for possible OR with Dr Ramirez in AM Hospitalist service will follow along while inpatient. Please call with any questions/concerns. Supervising Physician Co-Signing Physician Notes I personally saw and examined the patient. I verified all raman points and agree with Saniya Costello PA-C with the following exceptions and/or additions: 68 year old female admitted under orthopedics for lumbar spinal decompression due to L4-5 foraminal disc herniation. Medicine consulted for medical management. Main concerning history is of sustained ventricular arrhythmias requiring multiple ablations and defibrillator currently in place. Currently maintained on sotalol. She notes no problems in the last 3 years and she has had back surgery in 2021 in that time frame however she has not had cardiac clearance for this surgery. Last saw her wound/ostomy clinical nurse specialist in July 2023 without any changes. Other than her lumbar radicular pain and weakness she has no acute concerns or questions. O/E A&Ox3, HS RRR, diastolic murmur in LLSB, Chest CTAB, Abdo SNT, no CVA tenderness, reduced dorsiflexion on right compared to left. L5 dermatomal pain. A/P Lumbar spine disc herniation with radiculopathy - management per primary orthopedic team History of sustained ventricular arrhythmias with non-ischemic cardiomyopathy - s/p multiple ablations per patient. continues on sotalol which should continue throughout perioperative period. Recommend cardiology clearance prior to surgery. Chronic opiate use - continue buprenorphine, may need increased doses of opiates perioperatively Otherwise as above History of Present Illness Reason for Consultation: medical management Requesting Physician: Dr Ramirez Attending Physician: Adan Ramirez DO History of Present Illness 68yo female with PMHx significant for recurrent VT/ablations for VT on sotalol, IBS/gastroparesis and chronic back pain presented for worsening back pain despite medical treatment Recently was at [facility] for back pain last week. CT spine at [place] noting L4-L5 severe LEFT foraminal stenosis associated with left paracentral disc extrusion with cephalad migration in left lateral recess, nerve root compression. Seen in room 351, sitting up in bed, no acute distress. Patient reports she was seen by JOS Knapp at office today and sent over for direct admission for hopeful surgical intervention tomorrow. Pain from her L low back radiation through groin and to her knee and then down anteriorly. Does have weakness with dorsiflexion/plantar flexion but no saddle paresthesia/red flag symptoms at present. She notes no trauma but that she had been walking to the basement a little over a week ago and stepped down to pick up attendant a gallon jug and twisted and felt a pop and instantly had pain. She reports she had been doing well as far as medical management for her back pain, recently following with Dr Jerry and on buprenorphine and discussed possibly holding this as precipitating withdrawal. She notes she had a terrible day yesterday with nausea/diarrhea/etc, and discussed messaging ortho about holding this so that we can have better pain control. No recent physical therapy but did endorse having injection possibly back in May? with Dr Menon at [facility]. Recent changes to meds w/ gabapentin 400mg BID. She reports sotalol dosing she doesn't mess around with and takes at 630am/630pm regularly, in computer to reflect such. Follows with [facility] Cards, on sotalol for hx VT and has dual chamber ICD for secondary prevention.3 revisions, 2 ablations in the past. No recent issues w/ V T or cardiac issues reported. Discussed EKG/cards consult and likely monitoring on telemetry following surgery as messaged primary regarding. Was on prednisone taper, most recently to 20mg dosing and enough for additional 5 days of one tablet each. Patient without fever/chills, chest pain, shortness of breath, abdominal pain, nausea or vomiting. Questions/concerns addressed at this time. Allergies Allergy/AdvReac Type Severity Reaction Status Date / Time levofloxacin Allergy Severe per Verified 08/26/23 11:08 wound/ostomy clinical nurse specialist to list for allergy d/t ? Vtach clindamycin Allergy Intermediate Nausea Verified 08/26/23 11:08 amoxicillin Allergy Mild RASH Verified 08/26/23 11:08 cephalexin Allergy Mild HIVES Verified 08/26/23 11:08 clavulanic acid Allergy Mild RASH Verified 08/26/23 11:08 prochlorperazine Allergy Mild DISORIENTED Verified 08/26/23 11:08 droperidol AdvReac Intermediate Pt. states Verified 08/26/23 11:08 medication made her "jumpy & unsettled." ketorolac [From Toradol] AdvReac Intermediate Pt. states Verified 08/26/23 11:08 medication made her "jumpy & unsettled." metoclopramide [From Reglan] AdvReac Intermediate Pt. states Verified 08/26/23 11:08 medication made her "jumpy & unsettled." Home Medications Medication Instructions Recorded Confirmed Type Ventolin HFA 90 mcg/actuation 2 puff inhalation QID PRN 01/01/21 10/28/23 Rx aerosol inhaler (albuterol sulfate) shortness of breath or wheezing #18 grams sotalol 160 mg tablet 160 mg PO BID 07/04/21 10/28/23 History LUMBAR SUPPORT BACK BRACE #1 ea 08/22/21 06/24/23 Rx albuterol sulfate 1.25 mg/3 mL 1.25 mg inhalation QID PRN sob 01/13/22 10/28/23 History solution for nebulization loratadine 10 mg tablet (Claritin) 10 mg PO QAM 08/11/22 10/28/23 History tcedcfjrez-xeqohohyxkocg-wqyjirbn 1 tab PO Q4H PRN headache 09/01/22 10/28/23 History 50 mg-325 mg-40 mg tablet (Esgic) gabapentin 300 mg capsule See Rx Instructions .Route .COMPLEX 03/10/23 10/28/23 History aluminum hydrox-magnesium carb 95 15 ml PO DAILY PRN Gi Upset 05/19/23 08/26/23 History mg-358 mg/15 mL oral suspension (Gaviscon) azelastine 137 mcg (0.1 %) nasal 2 spray intranasal QAM PRN 05/19/23 10/28/23 History spray aerosol Congestion fluticasone propionate 50 1 spray intranasal BID PRN 05/19/23 10/28/23 History mcg/actuation nasal Congestion spray,suspension (Flonase Allergy Relief) metronidazole 1 % topical gel with 1 applic topical DAILY #55 grams 05/19/23 06/28/23 Rx pump hydrocortisone 2.5 % topical cream 1 applic [place] DAILY PRN hemorrhoids 05/20/23 10/28/23 Rx with perineal applicator #30 grams (Proctosol HC) aloe vera 25 mg capsule 50 mg (2 x 25 mg) PO BID #60 caps 06/03/23 06/28/23 Rx ondansetron 4 mg disintegrating 4 mg PO Q8H PRN NAUSEA/VOMITING 06/16/23 10/28/23 History tablet coenzyme Q10 100 mg capsule (Co 100 mg PO DAILY 06/24/23 10/28/23 History Q-10) buprenorphine HCl 8 mg sublingual 8 mg sublingual DAILY 08/26/23 10/28/23 History tablet cholecalciferol (vitamin D3) 125 125 mcg PO DAILY 08/26/23 10/28/23 History mcg (5,000 unit) capsule magnesium hydroxide 1,200 mg mg PO 08/26/23 08/26/23 History chewable tablet mecobalamin (vitamin B12) 1,000 1,000 mcg PO DAILY 08/26/23 08/26/23 History mcg chewable tablet nystatin 500,000 unit tablet 500,000 unit PO TID 08/26/23 08/26/23 History duloxetine 60 mg capsule,delayed 60 mg PO QAM #90 caps 09/16/23 10/28/23 Rx release (Cymbalta) molnupiravir 200 mg capsule (EUA) 800 mg (4 x 200 mg) PO Q12H 5 days 10/06/23 Rx #40 caps omeprazole 20 mg capsule,delayed 20 mg PO BID #180 caps 10/14/23 10/28/23 Rx release cyclobenzaprine 10 mg tablet 10 mg PO TID 10/26/23 10/28/23 History prednisone 20 mg tablet See Rx Instructions PO .COMPLEX 10/26/23 10/28/23 History Patient History Medical History Chronic constipation Mitral valve prolapse Moderate MVP, Mild to moderate MR, 2 jets are present per 12/2021 echo IBS (irritable bowel syndrome) Spinal stenosis Osteoarthritis History of pulmonary embolism Approximately 3 years ago following cardiac ablation - treated with AC History of migraine H/O esophageal spasm Presence of combination internal cardiac defibrillator (ICD) and pacemaker 2017 (for V.Tach, [employer]), two revisions (most recent 10/2018) Chronic SI joint pain Osteopenia Restless legs syndrome Hypertension Hyperlipidemia Gastritis Depression Chronic sinusitis Anxiety GERD (gastroesophageal reflux disease) Migraine History of ventricular tachycardia 2017 (etiology unknown) Surgical History History of esophagogastroduodenoscopy (EGD) History of ovarian cystectomy History of spinal surgery History of oral surgery H/O cardiac radiofrequency ablation x3 H/O hysterectomy with unilateral oophorectomy + appendectomy History of bilateral tubal ligation S/P foot surgery, right multiple S/P foot surgery, left multiple History of total right knee replacement (TKR) History of appendectomy History of cholecystectomy History of colonoscopy History of wisdom tooth extraction History of tooth extraction History of tonsillectomy History of endoscopic sinus surgery x3 History of cardiac cath 2017 > no stents Family History Father Family history of diabetes mellitus Myocardial infarction Other No family history of adverse response to anesthesia Denies family history of Ovarian cancer Prostate cancer Breast cancer Colorectal cancer Social History Smoking Status: Former smoker Age Started Using Tobacco: 23; packs per day: 0.5; Cigarettes Per Day: 4-5 cigs/day; Second Hand Exposure: No; Do You Dip or Chew Tobacco: No; Hx Alcohol Use: No Hx Substance Use: No Preferred Language: Jamaican Communication Ability: Effective Visual Impairment: No Limitations Hearing Ability: Normal Auditing Specialist Required: No Beliefs That Will Affect Care: None marital status: Current Living Situation: Spouse Current Living Situation Comment: Lives with and adult son current occupational status: retired 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 How many Children do You have: 2 Other Information That Helps Us Care for You: No Feels Safe at Home: Yes Safety Concerns: Feels Safe At This Time Dental Care, Regularly: Yes Physical Activity Frequency: Daily Seatbelt Use: always Assistive Devices: Cane, Glasses and Walker Physical Exam Physical Exam: General: chronically ill appearing female sitting up in bed, NAD Head atraumatic, normocephalic, mmm, trachea midline resp even/unlabored, no w/c/r, on room air cv: rrr, no significant m/r/g, no pitting edema/calf tenderness gi: +BS, soft/NT gu: no matthews msk/neuro: pain reported from L buttock posteriorly/lateral thigh with extension to anterior knee. decreased strength with dorsiflexion/plantar flexion on the left compared to the right, pulses palpable, cap refill wnl psych: aox3, cooperative and pleasant with exam Results & Data Results & Data Vital Signs (Past 12 Hours) Vital Signs Temp Pulse Resp BP Pulse Ox O2 Del Method 10/28/23 15:21 37 C 70 16 124/79 95 Room Air Laboratory Results 10/28/23 Range/Units 16:02 WBC 7.05 (4.8-10.8) K/ul RBC 4.32 (4.20-5.40) M/uL Hgb 13.7 (12.0-16.0) g/dl Hct 41.5 (37.0-47.0) % MCV 96.1 (80.0-100.0) fL MCH 31.7 (25.0-34.0) pg MCHC 33.0 (32.0-36.0) g/dL RDW Std Deviation 43.2 (36.4-46.3) fL RDW Coeff of Liz 12.2 (11.5-14.5) % Plt Count 253 (130-400) K/uL MPV 9.6 (9.4-12.4) fL Immature Gran % (Auto) 0.4 % Neut % (Auto) 84.9 % Lymph % (Auto) 11.2 % [place] % (Auto) 3.5 % Eos % (Auto) 0.0 % Baso % (Auto) 0.0 % Neut # (Auto) 5.98 (1.40-6.50) K/uL Lymph # (Auto) 0.79 L (1.20-3.40) K/uL [place] # (Auto) 0.25 (0.11-0.59) K/uL Eos # (Auto) 0.00 (0.00-0.50) K/uL Baso # (Auto) 0.00 (0.00-0.20) K/uL Immature Gran # (Auto) 0.03 (0.01-0.20) K/uL Sodium 137 (136-145) mmol/L Potassium 4.2 (3.5-5.1) mmol/L Chloride 101 (98-107) mmol/L Carbon Dioxide 30 (21-32) mmol/L Anion Gap 6 (3-11) BUN 14 (6-23) mg/dl Creatinine 0.57 L (0.6-1.2) mg/dl Est Cr Clr Drug Dosing 94.1 ml/min Est GFR ( Amer) 108.9 ml/min Est GFR (Non-Af Amer) 93.9 ml/min BUN/Creatinine Ratio 24.6 H (10-20) Glucose 119 H (70-99(Fasting)) mg/dl Calcium 9.1 (8.6-10.3) mg/dl Total Bilirubin 0.7 (0.2-1.0) mg/dl AST 25 (13-39) U/L ALT 40 (7-52) U/L Alkaline Phosphatase 31 L (34-104) U/L Total Protein 6.9 (6.0-8.3) gm/dl Albumin 4.3 (3.4-5.0) gm/dl Globulin 2.6 (2.5-4.0) gm/dl Albumin/Globulin Ratio 1.7 (0.9-2) PG Care Time/CCT Total # of Minutes Spent Total Time Spent with Patient: Total time spent is greater than 50% in coordination of care (as documented) at patient's floor/unit and/or counseling patient: Coding Level of Care Code 99544 IN/OBS CONSULT LVL 3,45M Diagnoses Lumbar disc herniation with radiculopathy M51.16 Presence of combination internal cardiac defibrillator (ICD) and pacemaker Z95.810 Gastroesophageal reflux disease, unspecified whether esophagitis present K21.9 Esophagitis presence: esophagitis presence not specified Major depressive disorder, remission status unspecified, unspecified whether recurrent F32.9 Active/Remission status: remission status unspecified Depression Type: major depressive disorder Major depression recurrence: unspecified whether recurrent Anxiety F41.9 (3) GERD (gastroesophageal reflux disease) Esophagitis presence: esophagitis presence not specified Qualified Code(s): K21.9 - Gastro-esophageal reflux disease without esophagitis (4) Depression Active/Remission status: remission status unspecified Depression Type: major depressive disorder Major depression recurrence: unspecified whether recurrent Qualified Code(s): F32.9 - Major depressive disorder, single episode, unspecified
[2023-10-28] MEDS ORDERED: SOTALOL HCL 80 MG TAB PO SCH ×2 (18:00→19:30)
[2023-10-28] MEDS: SOTALOL HCL 80 MG TAB PO SCH (18:09)
--- NOTE | 2023-10-28 18:26 | XRay Report ---
XR chest 1V portable CLINICAL HISTORY: Preoperative evaluation. COMPARISON STUDY: Chest CT August 24, 2019. Chest radiograph September 28, 2020. FINDINGS: Left subclavian pacer/AICD remains in place. Lung volumes are normal. Lungs are clear. Ther e is no pneumothorax or pleural effusion. Cardiac size is normal. Mediastinal contours are normal. Th ere is no evidence for pulmonary edema. IMPRESSION: No acute cardiopulmonary findings. ACT 112: Negative or not required by law. Electronically signed by: Blayne Ferguson M.D. 10/28/2023 6:25 PM
[2023-10-28] MEDS: HYDROmorphone INJ 1 MG/ML SYRINGE IV PRN (19:30)
[2023-10-28] MEDS: PANTOprazole 40 MG TAB PO SCH (20:00)
[2023-10-28] MEDS: GABAPENTIN 400 MG CAP PO SCH (20:17)
[2023-10-28] MEDS: buprenorphine HCL 8 MG SUBL SL SCH (20:17)
[2023-10-28] MEDS ORDERED: GABAPENTIN 300 MG CAP PO SCH (21:00)
--- OUTSIDE RECORDS SUMMARY | 2023-10-28 23:02 | External Medical Summary | Summary of Care ---
Author Name Unknown Organization [facility] Address [address] [place] [facility] [place] [address] Phone [phone] Care Team Providers Care [employer] Leader Name Role Phone Josiah Mcknight Primary Care Provider [phone] Reason for Visit * Reason Onset Date Comments Films 10/28/2023 Encounter Details Date Type Department Care Team (Late st Contact Info) Description 10/28/2023 Telephone Radiology Film File [address] [facility] [place] [id number] Mati Bailey MD [address] [place], [place] [address]KATTY Jaeger [id number] Films Allergies Active Allergy Reactions Criticality Noted Date Comments Amoxicillin-Pot Clavulanate Rash 02/25/2017 Cephalexin Hives 10/17/2009 Clindamycin High 07/03/2022 Other reaction(s): Nausea, nausea and vomiting Prochlorperazine Edisylate Neuro complications (Please comment) 02/25/2017 Droperidol 10/15/2023 Disoriented Levofloxacin Tachycardia 07/19/2020 V tach Metoclopramide Psych complications 06/17/2023 Ketorolac Tromethamine 10/15/2023 Disoriented documented as of this encounter (statuses as of 10/28/2023) Medications Medication Sig Dispensed Refills Start Date End Date Status albuterol (PROAIR HFA) 108 (90 BASE) MCG/ACT inhaler Inhale 2 Puffs by mouth every 4 hours as needed for Wheezing. 1 Inhaler 1 02/24/2017 Active butalbital-acetamino phen-caffeine 50-325-40 mg per tab (FIORICET) 50-325-40 MGIndications:Acute recurrent sinusitis, unspecified location Take 1 Tab by mouth every 4 hours as needed for Headache. 30 Tab 0 03/26/2017 Active clonazePAM (KLONOPIN) 0.5 MG Tablet TAKE 2 TABLETS EVERY NIGHT AT BEDTIME 60 Tab 2 08/04/2017 Active Additional Information Patient taking differently: 0.5 mg Oral TID PRN, Informant: Patient, Reported on 11/06/2022 Azelastine HCl 0.1 % nasal spray TWO SPRAYS IN EACH NOSTRIL TWICE DAILY NEEDED 11 08/02/2017 Active Loratadine 10 MG Oral Tablet Take 1 Tablet by mouth in the morning. 0 Active fluticasone (FLONASE) 50 MCG/ACT nasal spray Administer 2 Sprays into nostril in the morning and 2 Sprays before bedtime. 0 Active DULoxetine (CYMBALTA) 60 MG CPEP Take 1 Cap by mouth daily. 30 Cap 11 10/15/2017 Active Sotalol HCl 160 MG Oral Tablet (Betapace) Take 1 Tablet by mouth in the morning and 1 Tablet before bedtime. 0 Active Albuterol Sulfate 1.25 MG/3ML Inhalation Nebulization Solution Inhale via nebulizer 1.25 mg every 4 hours as needed for Shortness of Breath or Wheezing. For wheezing. 3 mL 1 01/11/2022 Active Imipramine HCl 10 MG Oral Tablet (Tofranil) Take 1 Tablet by mouth in the morning. 0 Active Gaviscon 80-14.2 MG Oral Tablet Chewable (Alum Hydroxide-Mag Trisilicate) Start: 10/23/22 9:55:00 EST, 2 tab, PO, qid 0 10/23/2022 Active dilTIAZem HCl 30 MG Oral Tablet (Cardizem) Take 1 Tablet by mouth in the morning and 1 Tablet at noon and 1 Tablet before bedtime. 0 09/29/2022 Active Hydrocortisone 2.5 % External Cream DAILY 0 12/16/2021 Active Omeprazole 20 MG Oral Capsule Delayed Release (PriLOSEC) Take 1 Capsule by mouth in the morning and 1 Capsule before bedtime. 0 10/31/2022 Active Polyethylene Glycol 3350 17 GM Oral Packet Take 1 Packet by mouth in the morning. 0 Active Senna 8.6 MG Oral Capsule Take 8.6 mg by mouth in the morning. 14 Capsule 1 05/13/2023 Active Additional Information Patient not taking.Reported on 05/18/2023 Linzess 72 MCG Oral Capsule (linaCLOtide) Take 1 Capsule by mouth daily before breakfast. 30 Capsule 0 05/18/2023 Active Additional Information Patient not taking.Reported on 07/09/2023 Motegrity 2 MG Oral Tablet (Prucalopride Succinate) Take by mouth daily. 0 Active Sucralfate 1 GM Oral Tablet (Carafate) Take 1 Tablet by mouth 4 times a day before meals and at bedtime. Crush each tablet into powder and mixed with water before taking by mouth, do not swallow intact tablets. 136 Tablet 0 05/28/2023 Active Ondansetron 4 MG Oral Tablet Disintegrating (Zofran) Place 1 Tablet on tongue every 8 hours as needed for Nausea or Vomiting for up to 15 doses. dissolve on tongue. 15 Tablet 0 06/15/2023 Active methylPREDNISolone 4 MG Oral Tablet Therapy Pack (Medrol Dosepack) follow package directions Do not start before June 24, 2023. 21 Tablet 0 06/24/2023 Active Trimethobenzamide HCl 300 MG Oral Capsule Take 1 Capsule by mouth in the morning and 1 Capsule at noon and 1 Capsule before bedtime. 30 Capsule 0 06/23/2023 Active Gabapentin 400 MG Oral Capsule (Neurontin) Take 1 Capsule by mouth in the morning and 1 Capsule at noon and 1 Capsule before bedtime. 90 Capsule 1 06/28/2023 Active Buprenorphine HCl 8 MG Sublingual Tablet Sublingual (Subutex) Place 0.25 Tablets under the tongue in the morning. 0 08/27/2023 Active Ondansetron 4 MG Oral Tablet Disintegrating (Zofran) Place 1 Tablet on tongue every 8 hours as needed for Nausea. dissolve on tongue. 15 Tablet 0 10/05/2023 Active Cyclobenzaprine HCl 10 MG Oral Tablet (Flexeril) Take 1 Tablet by mouth in the morning and 1 Tablet at noon and 1 Tablet before bedtime. 15 Tablet 0 10/15/2023 Active Cyclobenzaprine HCl 10 MG Oral Tablet (Flexeril) Take 1 Tablet by mouth in the morning and 1 Tablet at noon and 1 Tablet before bedtime. Do all this for 10 days. 30 Tablet 0 10/25/2023 Active predniSONE 20 MG Oral Tablet (Deltasone) 2 pills daily for 5 days then 1 pill daily next 5 days 15 Tablet 0 10/25/2023 Active documented as of this encounter (statuses as of 10/28/2023) Active Problems Problem Noted Date Diagnosed Date Epigastric pain 01/08/2022 Dysphagia 01/08/2022 Intractable nausea and vomiting 01/08/2022 Mitral valve prolapse 01/30/2021 Chest pressure 01/29/2021 Pleuritic chest pain 12/16/2020 ICD (implantable cardioverter-defibrillator) dis charge 11/26/2020 ICD (implantable cardioverter-defibrillator), omid knight, in situ 10/01/2017 Abnormal findings on diagnos tic imaging of heart/coronary circulation 10/01/2017 History of tobacco abuse 10/01/2017 IHSS (idiopathic hypertrophic subaortic stenosis ) 10/01/2017 Ex-smoker 10/01/2017 Abnormal MRI 10/01/2017 S/P ICD (internal cardiac defibrillator) procedu re 09/17/2017 V-tach 09/12/2017 Recurrent major depressive disorder, in full rem ission 09/10/2017 Anxiety 09/10/2017 documented as of this encounter (statuses as of 10/28/2023) Resolved Problems Problem Noted Date Diagnosed Date Resolved Date RSV infection 01/30/2021 01/08/2022 Coronary artery disease due to lipid rich plaque 10/01/2017 11/09/2017 Smoker 10/01/2017 10/01/2017 Ischemic colitis 09/12/2017 01/08/2022 documented as of this encounter (statuses as of 10/28/2023) Immunizations Name Administration Dates Next Due COVID-19 mRNA, LNP-s, No Pre serve, 2-Dose Series (Pfizer) 07/24/2021,01/12/2021,12/15/2020 Pneumococcal Conjugate Vacc, 13 Valent (Prevnar) 05/29/2016 TDAP (age 11 and older)(Adacel) 08/19/2016 documented as of this encounter Social History Tobacco Use Types Packs/Day Years Used Date Smoking Tobacco: Former Cigarettes 0.3 40 Q uit: 04/09/2023 Smokeless Tobacco: Never Comments:in process of tobac co cessation Alcohol Use Standard Drinks/Week Comments No 0 (1 standard drink = 0.6 oz pur e alcohol) Occassional Hunger Vital Sign Answer Date Recorded Within the past 12 months, y ou worried that your food would run out before you got the money to buy more. Never true 09/07/20 Within the past 12 months, t he food you bought just didn't last and you didn't have money to get more. Never true 09/07/2023 Sex and Gender Information Value Date Recorded Sex Assigned at Female 09/07/2023 9:45 AM EST Gender Identity Female 09/07/2023 9:45 AM EST Sexual Orientation Straight 09/07/2023 9: 45 AM EST Job Start Date Occupation Industry Not on file Not on file Not on file documented as of this encounter Functional Status Functional Status Response Date of Assess ment Are you deaf or do you have serious difficulty h earing? No 05/03/2023 Are you blind or do you have serious difficulty seeing, even when wearing glasses? No 05/03/2023 Do you have serious difficul ty walking or climbing stairs? (5 years old or older) No 05/03/2023 Do you have difficulty dress ing or bathing? (5 years old or older) No 05/03/2023 Because of a physical, menta l, or emotional condition, do you have difficulty doing errands alone such as visiting a doctor s office or shopping? (15 years old or older) No 05/03/20 Cognitive Status Response Date of Assessm ent Because of a physical, menta l, or emotional condition, do you have serious difficulty concentrating, remembering, or making decisions? (5 years old or older) No 05/03/2023 documented as of this encounter Miscellaneous Notes * Telephone Encounter - Rosangela Guevara, SARA - 10/28/2023 8:01 AM EST [facility] requesting 10-25-23 images be pushed to their system. [place] Authorization to Release on file. Images pushed to [facility] external connection through [employer] Report(s) faxed to [phone]. Successful fax confirmation received. documented in this encounter Plan of Treatment Upcoming Encounters Date Type Department Care Team (Late st Contact Info) Description 11/16/2023 11:00 AM EST Telemedicine Psychology, [place] [address] [place] [address] Marilu Mejía, [facility] [address] [place] [address] 12/24/2023 3:30 PM EST Appointment Radiology, [address] [phone] Scheduled Procedures Name Priority Associated Diagnoses Date/Ti me ESOPHAGOGASTRODUODENOSCOPY ( EGD), FLEXIBLE, TRANSORAL, DIAGNOSTIC Esophageal spasm Health Maintenance Due Date Last Done Comments DXA Scan 1953 Cologuard 1998 Fecal Occult Blood Test 1998 Sigmoidoscopy 1998 Zoster Vaccines (1 of 2) 2003 Mammogram 09/17/2016 09/17/2015 Depression Screening 06/04/2018 06/04/2017 Lipid Panel 09/12/2022 09/12/2017, 05/20, 05/30/2016, Additional history exists COVID-19 Vaccine (2022- season) 2023 10/31/2022, 03/15/2022, 07/24/2021, Additional history exists Influenza Vaccine (FLU shot) (#1) 2023 DTaP,Tdap,and Td Vaccines (2 - Td or Tdap) 08/19/2026 08/19/2016 Colonoscopy 04/03/2033 04/03/2023, 03/19, 10/28/2017, Additional history exists Colorectal Cancer Screening 04/03/2033 Pneumococcal Vaccine: 65+ Years Completed 09/22/2018, 05/29/2016 GARDASIL-HPV IMMUNIZATION SERIES Aged Out No longer eligible based on patient's age to complete this topic Hepatitis B Aged Out No longer eligi ble based on patient's age to complete this topic MENINGOCOCCAL (MENACTRA/MENVEO) Aged Out No longer eligible based on patient's age to complete this topic documented as of this encounter Medical Devices Not on filedocumented as of this encounter Advance Directives Latest Code Status on File Code Status Date Activated Date Inactivated Comments Full Code 05/03/2023 6:10 PM 05/05/2023 7:45 PM This order reflects the patients wishes and were consensually agreed upon. Question Answer Comments Discussion of Advance Directives occurred with: Patient Does the patient have a Living Will? No Does the patient have Health Care Power of Financial Services Technician? No Code Status History Code Status Date Activated Date Inactivated Comments Full Code 01/08/2022 4:02 PM 01/11/2022 3:44 PM This order reflects the patients wishes and were consensually agreed upon. Question Answer Comments Discussion of Advance Directives occurred with: Patient Full Code 01/29/2021 3:49 PM 01/30/2021 10:18 PM This order reflects the patients wishes and were consensually agreed upon. Question Answer Comments Discussion of Advance Directives occurred with: Patient Full Code 12/16/2020 11:57 PM 12/17/2020 9:23 PM This order reflects the patients wishes and were consensually agreed upon. Question Answer Comments Discussion of Advance Directives occurred with: Patient Full Code 11/26/2020 5:33 AM 11/27/2020 4:24 PM This or katlyn reflects the patients wishes and were consensually agreed upon. Question Answer Comments Discussion of Advance Directives occurred with: Patient Care Teams [employer] Leader Relationship Specialty Start Date End Date Josiah Mcknight DO [address] [facility] [place] [address] PCP - General Family Medicine 11/09/17 documented as of this encounter
[2023-10-29] MEDS: HYDROmorphone INJ 1 MG/ML SYRINGE IV PRN ×3 (03:12→10:25)
[2023-10-29] MEDS: LACTATED RINGER'S 1,000 ML IV SCH ×2 (05:22→16:31)
[2023-10-29] MEDS: SOTALOL HCL 80 MG TAB PO SCH ×3 (05:27→17:51)
[2023-10-29] MEDS ORDERED: VANCOMYCIN HCL 1,000 MG in SODIUM CHLORIDE 0.9% 250 ML IV SCH (06:00)
[2023-10-29] MEDS ORDERED: VANCOMYCIN HCL 1,000 MG in SODIUM CHLORIDE 0.9% 500 ML IV SCH ×2 (06:00→18:00)
[2023-10-29 07:27] LABS: BUN Creatinine Ratio 24.1 (10-20); Calcium 8.4 mg/dl (8.6-10.3); Creatinine Clr Calc Pharmacy 99.3 ml/min; Est GFR (African American) 110.8 ml/min; Est GFR (Non-African American) 95.6 ml/min; Magnesium 1.9 mg/dl (1.7-2.4); Potassium 3.8 mmol/L (3.5-5.1)
[2023-10-29] MEDS: PANTOprazole 40 MG TAB PO SCH ×2 (07:56→20:58)
[2023-10-29] MEDS: buprenorphine HCL 8 MG SUBL SL SCH ×3 (07:56→21:04)
[2023-10-29] MEDS: GABAPENTIN 400 MG CAP PO SCH ×2 (07:57→20:59)
[2023-10-29] MEDS: DULoxetine HCL 60 MG CAP PO SCH (07:57)
--- NOTE | 2023-10-29 08:02 | Hospitalist Progress Note ---
Date of Service October 29, 2023 Assessment & Plan (1) Lumbar disc herniation with radiculopathy: Plan: Worsening lumbar spine pain since twisting/turning over a week ago in her basement, went to [facility] spine at [place] noting L4-L5 severe LEFT foraminal stenosis associated with left paracentral disc extrusion with cephalad migration in left lateral recess, nerve root compression. Went to Dr Ramirez's office 10/28 and sent to [facility] for direct admission/hopeful surgical intervention 10/29 Pain control, antiemetics, bowel regimen per primary service CXR, EKG ordered for pre-op clearance as patient on sotalol BID as below/hx VT. No CP/palpitations reported - Sotalol dosing to 630am/pm as taking at home. Messaged primary about monitoring on med-tele post op to be safe unless otherwise stated by cards, consult placed EKG appearing unchanged compared to June. CXR w/o acute process Continues on buprenorphine, discussed w/ Dr Ramirez who spoke w/ pharmacy and to continue. -Has utilized 1mg IV Dilaudid x 3 doses thus far. -May need additional pain control and will monitor. -Home gabapentin changed to 400mg BID as taking at home most recently Cards consult pending for cardiac clearance given hx vtach/sotalol use but otherwise appearing medically stable. Did message Dr Ramirez about monitoring on monitored bed post-operatively NPO for possible surgery this afternoon, IVF LR @ 75cc/hr per primary service F/u labs in AM (2) Presence of combination internal cardiac defibrillator (ICD) and pacemaker: Plan: Hx recurrent Vtach, s/p ablation. Follows with [facility]. Noted ICD in place. placed 2017 (for V.Tach, [employer]), 3 revisions, 2 ablations EKG ordered for pre-op clearance as well as cardiology consult as above, consider monitoring post-op on med/tele/PCU NO CP/palpitations reported (3) GERD (gastroesophageal reflux disease): Plan: continue PPI BID (on omeprazole BID at home) (4) Depression: Plan: continues on duloxetine 50mg daily (suspect to help w/ baseline pain control). Prior on clonazepam but was weaned off last year Ativan available per primary for spasm/pains (5) Anxiety: Plan: as above Plan Thank you for allowing hospitalist service to participate in the care of Ms Matt. Cards consult pending for cardiac clearance given history but has had endoscopy within the past year without any issues. Hospitalist service will follow along. Please call with any questions/concerns. Admission and Anticipated Discharge Date Admission Date: October 28, 2023 Supervising Physician Co-Signing Physician Notes The patient was not seen by me. The chart was reviewed. Case discussed with KATTY Almanza. Agree with assessment and plan Subjective Eval this morning, resting in bed. Frequent repositioning to get comfortable. Notes pain medication effective but continued discomfort. Hopeful for surgery this afternoon, presently NPO. Not yet seen by cardiology but reports she has had multiple procedures, even recently, without issue. No firing from [employer] in several years. Awaiting formal consult just given history but no CP/SOB/palpitations at present and suspect no issues with clearance at present but did discuss monitoring on med- tele/monitored bed post-op. Some flushing noted to cheeks, possibly from Dilaudid. Not itching. Will monitor. Believes could have happened before. Questions/concerns addressed at this time. Physical Exam 2 Physical Exam: General: chronically ill appearing female sitting up in bed, moving around to get comfortable. NAD but mildly uncomfortable with movements, blankets rolled up between legs Head atraumatic, normocephalic, mm slightly dry, trachea midline resp even/unlabored, no w/c/r, on room air cv: rrr, no significant m/r/g, no pitting edema/calf tenderness, pulses palpable gi: +BS, soft/NT gu: no matthews msk/neuro: laying in position to limit discomfort to her LLE. +discomfort with straight leg on the left, decreased plantar/dorsiflexion on the left compared to the right. sensation intact psych: aox3, cooperative and pleasant with exam Results & Data Results & Data Vital Signs (Past 12 Hours) Vital Signs Temp Pulse Resp BP Pulse Ox O2 Del Method 10/29/23 07:03 36.9 C 70 14 123/80 96 Room Air 10/28/23 20:56 37.1 C 69 16 109/63 94 Room Air Laboratory Results 10/28/23 16:02 10/29/23 06:46 Mag 1.9 PG Care Time/CCT Total # of Minutes Spent Total Time Spent with Patient: Total time spent is greater than 50% in coordination of care (as documented) at patient's floor/unit and/or counseling patient: Coding Level of Care Code 76192 SUB INP/OBS CARE 235MIN Diagnoses Lumbar disc herniation with radiculopathy M51.16 Presence of combination internal cardiac defibrillator (ICD) and pacemaker Z95.810 Gastroesophageal reflux disease, unspecified whether esophagitis present K21.9 Esophagitis presence: esophagitis presence not specified Major depressive disorder, remission status unspecified, unspecified whether recurrent F32.9 Active/Remission status: remission status unspecified Depression Type: major depressive disorder Major depression recurrence: unspecified whether recurrent Anxiety F41.9 (3) GERD (gastroesophageal reflux disease) Esophagitis presence: esophagitis presence not specified Qualified Code(s): K 21.9 - Gastro-esophageal reflux disease without esophagitis (4) Depression Active/Remission status: remission status unspecified Depression Type: major depressive disorder Major depression recurrence: unspecified whether recurrent Qualified Code(s): F32.9 - Major depressive disorder, single episode, unspecified
[2023-10-29] MEDS ORDERED: GABAPENTIN 300 MG CAP PO SCH (09:00)
--- NOTE | 2023-10-29 10:44 | Cardiology Consultation ---
Date of Consultation October 29, 2023 Assessment & Plan (1) Lumbar disc herniation with radiculopathy: Plan Cardiac history: 1. Ventricular tachycardia s/p ablation in 2019 now controlled with sotalol 2. Non ischemic cardiomyopathy with resolved EF 3. S/p [employer] pacemaker/defibrillator - pacing 80% of the time atrially on last device download, ventricularly 8% 4. Last Echo 02/2021 with normal LVF, EF 65%, basal asymmetric septal hypertrophy of the elderly, grade I diastolic dysfunction, normal RV, mitral annular calcification with mild leaflet prolapse and poor leaflet coaptation. Moderate mitral regurgitation 5. 2016 abnormal cardiac MRI with presumption of cardiac sarcoidosis Ms. Matt is stable from a cardiac persepective. She will need to have her ICD turned off with a magnet for her procedure but the pacer function left on. She atrially paces most of the time and is atrially pacing on her EKG in the hospital. She should continue her sotalol perioperatively. She has not had an episode of VT requiring shock from her ICD in about two years. Her last echo did show moderate mitral valve regurgitation. She should have a repeat echo in the near future. Given the urgency of her surgery and lack of heart failure symptoms, her surgery does not need to be delayed to get an echo first. Anesthesia should be judicious with fluid administration perioperatively. She is a moderate risk to proceed with her back surgery. History of Present Illness Attending Physician: Adan Ramirez DO History of Present Illness Ms. Matt was admitted for progressively more severe back pain since September. She is scheduled for surgery this afternoon. She denies sob, chest pain, palpitations or edema. Prior to her back pain she was exercising 30 minutes a day on an exercise evelyn. She can ascend a flight of stairs without sob or chest pain. Allergies Allergy/AdvReac Type Severity Reaction Status Date / Time levofloxacin Allergy Severe per Verified 08/26/23 11:08 stitchdowns toe former to list for allergy d/t ? Vtach clindamycin Allergy Intermediate Nausea Verified 08/26/23 11:08 amoxicillin Allergy Mild RASH Verified 08/26/23 11:08 cephalexin Allergy Mild HIVES Verified 08/26/23 11:08 clavulanic acid Allergy Mild RASH Verified 08/26/23 11:08 prochlorperazine Allergy Mild DISORIENTED Verified 08/26/23 11:08 droperidol AdvReac Intermediate Pt. states Verified 08/26/23 11:08 medication made her "jumpy & unsettled." ketorolac [From Toradol] AdvReac Intermediate Pt. states Verified 08/26/23 11:08 medication made her "jumpy & unsettled." metoclopramide [From Reglan] AdvReac Intermediate Pt. states Verified 08/26/23 11:08 medication made her "jumpy & unsettled." Home Medications Medication Instructions Recorded Confirmed Type Ventolin HFA 90 mcg/actuation 2 puff inhalation QID PRN 01/01/21 10/28/23 Rx aerosol inhaler (albuterol sulfate) shortness of breath or wheezing #18 grams sotalol 160 mg tablet 160 mg PO BID 07/04/21 10/28/23 History LUMBAR SUPPORT BACK BRACE #1 ea 08/22/21 06/24/23 Rx albuterol sulfate 1.25 mg/3 mL 1.25 mg inhalation QID PRN sob 01/13/22 10/28/23 History solution for nebulization loratadine 10 mg tablet (Claritin) 10 mg PO QAM 08/11/22 10/28/23 History [id number]-emhplmfdumxwm-tfwswgrb 1 tab PO Q4H PRN headache 09/01/22 10/28/23 History 50 mg-325 mg-40 mg tablet (Esgic) gabapentin 300 mg capsule See Rx Instructions .Route .COMPLEX 03/10/23 10/28/23 History aluminum hydrox-magnesium carb 95 15 ml PO DAILY PRN Gi Upset 05/19/23 08/26/23 History mg-358 mg/15 mL oral suspension (Gaviscon) azelastine 137 mcg (0.1 %) nasal 2 spray intranasal QAM PRN 05/19/23 10/28/23 History spray aerosol Congestion fluticasone propionate 50 1 spray intranasal BID PRN 05/19/23 10/28/23 History mcg/actuation nasal Congestion spray,suspension (Flonase Allergy Relief) metronidazole 1 % topical gel with 1 applic topical DAILY #55 grams 05/19/23 06/28/23 Rx pump hydrocortisone 2.5 % topical cream 1 applic [place] DAILY PRN hemorrhoids 05/20/23 10/28/23 Rx with perineal applicator #30 grams (Proctosol HC) aloe vera 25 mg capsule 50 mg (2 x 25 mg) PO BID #60 caps 06/03/23 06/28/23 Rx ondansetron 4 mg disintegrating 4 mg PO Q8H PRN NAUSEA/VOMITING 06/16/23 10/28/23 History tablet coenzyme Q10 100 mg capsule (Co 100 mg PO DAILY 06/24/23 10/28/23 History Q-10) buprenorphine HCl 8 mg sublingual 8 mg sublingual DAILY 08/26/23 10/28/23 History tablet cholecalciferol (vitamin D3) 125 125 mcg PO DAILY 08/26/23 10/28/23 History mcg (5,000 unit) capsule magnesium hydroxide 1,200 mg mg PO 08/26/23 08/26/23 History chewable tablet mecobalamin (vitamin B12) 1,000 1,000 mcg PO DAILY 08/26/23 08/26/23 History mcg chewable tablet nystatin 500,000 unit tablet 500,000 unit PO TID 08/26/23 08/26/23 History duloxetine 60 mg capsule,delayed 60 mg PO QAM #90 caps 09/16/23 10/28/23 Rx release (Cymbalta) molnupiravir 200 mg capsule (EUA) 800 mg (4 x 200 mg) PO Q12H 5 days 10/06/23 Rx #40 caps omeprazole 20 mg capsule,delayed 20 mg PO BID #180 caps 10/14/23 10/28/23 Rx release cyclobenzaprine 10 mg tablet 10 mg PO TID 10/26/23 10/28/23 History prednisone 20 mg tablet See Rx Instructions PO .COMPLEX 10/26/23 10/28/23 History Patient History Medical History Chronic constipation Mitral valve prolapse Moderate MVP, Mild to moderate MR, 2 jets are present per 12/2021 echo IBS (irritable bowel syndrome) Spinal stenosis Osteoarthritis History of pulmonary embolism Approximately 3 years ago following cardiac ablation - treated with AC History of migraine H/O esophageal spasm Presence of combination internal cardiac defibrillator (ICD) and pacemaker 2016 (for V.Tach, [employer]), two revisions (most recent 10/2018) Chronic SI joint pain Osteopenia Restless legs syndrome Hypertension Hyperlipidemia Gastritis Depression Chronic sinusitis Anxiety GERD (gastroesophageal reflux disease) Migraine History of ventricular tachycardia 2017 (etiology unknown) Surgical History History of esophagogastroduodenoscopy (EGD) History of ovarian cystectomy History of spinal surgery History of oral surgery H/O cardiac radiofrequency ablation x3 H/O hysterectomy with unilateral oophorectomy + appendectomy History of bilateral tubal ligation S/P foot surgery, right multiple S/P foot surgery, left multiple History of total right knee replacement (TKR) History of appendectomy History of cholecystectomy History of colonoscopy History of wisdom tooth extraction History of tooth extraction History of tonsillectomy History of endoscopic sinus surgery x3 History of cardiac cath 2017 > no stents Family History Father Family history of diabetes mellitus Myocardial infarction Other No family history of adverse response to anesthesia Denies family history of Ovarian cancer Prostate cancer Breast cancer Colorectal cancer Social History Smoking Status: Former smoker Age Started Using Tobacco: 23; packs per day: 0.5; Cigarettes Per Day: 4-5 cigs/day; Second Hand Exposure: No; Do You Dip or Chew Tobacco: No; Hx Alcohol Use: No Hx Substance Use: No Preferred Language: Moroccan Communication Ability: Effective Visual Impairment: No Limitations Hearing Ability: Normal Technical 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 Required: No Beliefs That Will Affect Care: None marital status: Current Living Situation: Spouse Current Living Situation Comment: Lives with and adult son current occupational status: retired 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 How many Children do You have: 2 Other Information That Helps Us Care for You: No Feels Safe at Home: Yes Safety Concerns: Feels Safe At This Time Dental Care, Regularly: Yes Physical Activity Frequency: Daily Seatbelt Use: always Assistive Devices: Cane, Glasses and Walker Review of Systems Review of Systems: All systems reviewed & are unremarkable except as noted in HPI & below Physical Exam Constitutional: WD/WN, vitals as above Respiratory: normal respiratory effort, lungs clear to auscultation Cardiovascular: Rate/Rhythm: regular rate and regular rhythm Heart Sounds: + murmur (llsb 2/6 holosystolic murmur) Extremities: no edema Skin: no rashes, warm and dry Neurologic: moves all extremities and awake Psychiatric: A+Ox3, euthymic affect Results & Data Vital Signs (Past 12 Hours) Vital Signs Temp Pulse Resp BP Pulse Ox O2 Del Method 10/29/23 07:03 36.9 C 70 14 123/80 96 Room Air
[2023-10-29] MEDS ORDERED: ROCURONIUM BROMIDE 10 MG/ML 5 ML VIAL IV ONE (12:15)
[2023-10-29] MEDS ORDERED: fentaNYL citrate PF 100 MCG/2 ML VIAL ONE (12:15)
[2023-10-29] MEDS ORDERED: DEXAMETHASONE SOD INJ 4 MG/ML VIAL ONE (12:15)
[2023-10-29] MEDS ORDERED: MIDAZOLAM HCL 1 MG/ML 2ML VIAL ONE (12:15)
[2023-10-29] MEDS ORDERED: ONDANSETRON INJ 2 MG/ML 2 ML VIAL ONE ×2 (12:15→15:18)
[2023-10-29] MEDS ORDERED: LIDOCAINE 2% 2 ML VIAL/AMP(20MG/ML) INFIL ONE (12:15)
[2023-10-29] MEDS ORDERED: PROPOFOL IV EMULSION 10 MG/ML 20 ML VIAL IV ONE (12:15)
--- NOTE | 2023-10-29 12:25 | Electrocardiogram Report ---
Test Reason : Blood Pressure : / mmHG Vent. Rate : 070 BPM Atrial Rate : 070 BPM P-R Int : 238 ms QRS Dur : 100 ms QT Int : 416 ms P-R-T Axes : 031 013 025 degrees QTc Int : 449 ms Atrial-paced rhythm with prolonged AV conduction Abnormal ECG When compared with ECG of 28-JUN-2023 19:02, No significant change was found Confirmed by Miki Mckenzie ([id number]) on 10/29/2023 12:25:37 PM Referred By: Adan Ramirez Confirmed By:Miki Mckenzie
--- NOTE | 2023-10-29 12:28 | Anesthesiology Consultation ---
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 Vtach clindamycin Allergy Intermediate Nausea Verified 08/26/23 11:08 amoxicillin Allergy Mild RASH Verified 08/26/23 11:08 cephalexin Allergy Mild HIVES Verified 08/26/23 11:08 clavulanic acid Allergy Mild RASH Verified 08/26/23 11:08 prochlorperazine Allergy Mild DISORIENTED Verified 08/26/23 11:08 droperidol AdvReac Intermediate Pt. states Verified 08/26/23 11:08 medication made her "jumpy & unsettled." ketorolac [From Toradol] AdvReac Intermediate Pt. states Verified 08/26/23 11:08 medication made her "jumpy & unsettled." metoclopramide [From Reglan] AdvReac Intermediate Pt. states Verified 08/26/23 11:08 medication made her "jumpy & unsettled." Medications Home Medications Medication Instructions Recorded Confirmed Last Taken Ventolin HFA 90 mcg/actuation 2 puff inhalation QID PRN 01/01/21 10/28/23 08/31/22 14:00 aerosol inhaler (albuterol sulfate) shortness of breath or wheezing #18 grams sotalol 160 mg tablet 160 mg PO BID 07/04/21 10/28/23 06/28/23 BOTH DOSES LUMBAR SUPPORT BACK BRACE #1 ea 08/22/21 06/24/23 Unknown albuterol sulfate 1.25 mg/3 mL 1.25 mg inhalation QID PRN sob 01/13/22 10/28/23 08/31/22 14:00 solution for nebulization loratadine 10 mg tablet (Claritin) 10 mg PO QAM 08/11/22 10/28/23 06/27/23 ariulauusw-kdjbryejwcfga-jkpcspnh 1 tab PO Q4H PRN headache 09/01/22 10/28/23 Unknown 50 mg-325 mg-40 mg tablet (Esgic) gabapentin 300 mg capsule See Rx Instructions .Route .COMPLEX 03/10/23 10/28/23 06/28/23 08:00 aluminum hydrox-magnesium carb 95 15 ml PO DAILY PRN Gi Upset 05/19/23 08/26/23 Unknown mg-358 mg/15 mL oral suspension (Gaviscon) azelastine 137 mcg (0.1 %) nasal 2 spray intranasal QAM PRN 05/19/23 10/28/23 Unknown spray aerosol Congestion fluticasone propionate 50 1 spray intranasal BID PRN 05/19/23 10/28/23 Unknown mcg/actuation nasal Congestion spray,suspension (Flonase Allergy Relief) metronidazole 1 % topical gel with 1 applic topical DAILY #55 grams 05/19/23 06/28/23 06/27/23 pump hydrocortisone 2.5 % topical cream 1 applic [place] DAILY PRN hemorrhoids 05/20/23 10/28/23 Unknown with perineal applicator #30 grams (Proctosol HC) aloe vera 25 mg capsule 50 mg (2 x 25 mg) PO BID #60 caps 06/03/23 06/28/23 06/27/23 ondansetron 4 mg disintegrating 4 mg PO Q8H PRN NAUSEA/VOMITING 06/16/23 10/28/23 Unknown tablet coenzyme Q10 100 mg capsule (Co 100 mg PO DAILY 06/24/23 10/28/23 06/27/23 Q-10) buprenorphine HCl 8 mg sublingual 8 mg sublingual DAILY 08/26/23 10/28/23 Unknown tablet cholecalciferol (vitamin D3) 125 125 mcg PO DAILY 08/26/23 10/28/23 Unknown mcg (5,000 unit) capsule magnesium hydroxide 1,200 mg mg PO 08/26/23 08/26/23 Unknown chewable tablet mecobalamin (vitamin B12) 1,000 1,000 mcg PO DAILY 08/26/23 08/26/23 Unknown mcg chewable tablet nystatin 500,000 unit tablet 500,000 unit PO TID 08/26/23 08/26/23 Unknown duloxetine 60 mg capsule,delayed 60 mg PO QAM #90 caps 09/16/23 10/28/23 Unknown release (Cymbalta) molnupiravir 200 mg capsule (EUA) 800 mg (4 x 200 mg) PO Q12H 5 days 10/06/23 Unknown #40 caps omeprazole 20 mg capsule,delayed 20 mg PO BID #180 caps 10/14/23 10/28/23 Unknown release cyclobenzaprine 10 mg tablet 10 mg PO TID 10/26/23 10/28/23 Unknown prednisone 20 mg tablet See Rx Instructions PO .COMPLEX 10/26/23 10/28/23 Unknown Active Medications Generic Name Dose Route Start Last Admin Trade Name Freq PRN Reason Stop Dose Admin Buprenorphine HCl 4 mg 10/28/23 21:00 10/29/23 07:56 Buprenorphine Hcl 8 Mg Subl SL 11/27/23 20:59 4 mg TID PRETTY Administration Duloxetine HCl 60 mg 10/29/23 09:00 10/29/23 07:57 Duloxetine Hcl 60 Mg Cap PO 11/28/23 08:59 60 mg QAM PRETTY Administration Gabapentin 400 mg 10/28/23 21:00 10/29/23 07:57 Gabapentin 400 Mg Cap PO 11/27/23 20:59 400 mg BID PRETTY Administration Hydromorphone HCl 1 mg 10/28/23 15:33 10/29/23 10:25 Hydromorphone Inj 1 Mg/Ml Syringe IV 11/11/23 15:32 1 mg Q3H PRN Administration severe pain (scale 7-10) Lactated Ringer's 1,000 mls @ 75 mls/hr 10/28/23 15:45 10/29/23 12:17 Lr IV 11/27/23 15:44 0 mls/hr .[id number] PRETTY Infusion Vancomycin HCl 1,000 mg/ 270 mls @ 200 mls/hr 10/29/23 06:00 10/29/23 07:07 Sodium Chloride IV 10/30/23 05:59 Infused PREOP PRETTY Infusion Pantoprazole Sodium 40 mg 10/28/23 21:00 10/29/23 07:56 Pantoprazole 40 Mg Tab PO 11/27/23 20:59 40 mg BID PRETTY Administration Protocol Sotalol HCl 160 mg 10/28/23 18:30 10/29/23 06:03 Sotalol Hcl 80 Mg Tab PO 11/27/23 18:29 160 mg BID@0630,1830 PRETTY Administration Past Medical History Medical History Chronic constipation Mitral valve prolapse Moderate MVP, Mild to moderate MR, 2 jets are present per 12/2021 echo IBS (irritable bowel syndrome) Spinal stenosis Osteoarthritis History of pulmonary embolism Approximately 3 years ago following cardiac ablation - treated with AC History of migraine H/O esophageal spasm Presence of combination internal cardiac defibrillator (ICD) and pacemaker 2017 (for V.Tach, [employer]), two revisions (most recent 10/2018) Chronic SI joint pain Osteopenia Restless legs syndrome Hypertension Hyperlipidemia Gastritis Depression Chronic sinusitis Anxiety GERD (gastroesophageal reflux disease) Migraine History of ventricular tachycardia 2017 (etiology unknown) Exercise / Class Metabolic Activity III < 4 Walking/Shop/Light housework Past Family History Family History Father Family history of diabetes mellitus Myocardial infarction Other No family history of adverse response to anesthesia Denies family history of Ovarian cancer Prostate cancer Breast cancer Colorectal cancer Past Surgical History Surgical History History of esophagogastroduodenoscopy (EGD) History of ovarian cystectomy History of spinal surgery History of oral surgery H/O cardiac radiofrequency ablation x3 H/O hysterectomy with unilateral oophorectomy + appendectomy History of bilateral tubal ligation S/P foot surgery, right multiple S/P foot surgery, left multiple History of total right knee replacement (TKR) History of appendectomy History of cholecystectomy History of colonoscopy History of wisdom tooth extraction History of tooth extraction History of tonsillectomy History of endoscopic sinus surgery x3 History of cardiac cath 2017 > no stents Past Anesthesia History No Hx of Anesthesia Complications and No Family Hx of Anesthesia Complications History of PONV No Hx of PONV and No Hx of Motion Sickness Social History Smoking Status: Former smoker tobacco type: cigarettes Smoking cigarettes per day: 4-5 cigs/day Do You Dip or Chew Tobacco: No Hx Alcohol Use: No alcohol intake frequency: holidays/special occasions only Hx Substance Use: No substance use type: does not use Substance Use Type Other:: morphine 15 mg Physical Exam Vital Signs Last Vital Signs Temp 36.9 C 10/29/23 07:03 Pulse 70 10/29/23 07:03 Resp 14 10/29/23 07:03 BP 123/80 10/29/23 07:03 Pulse Ox 96 10/29/23 07:03 O2 Del Method Room Air 10/29/23 07:03 Testing Laboratory Results 10/28/23 16:02 10/29/23 06:46 Electrocardiogram Date: 10/28/23 Findings: + pertinent finding (A paced @ 70 w/ prolonged AV conduction) Chest X-Ray Date: 10/28/23 Findings: + NAD and + other (Left subclavian AICD) Echocardiogram Date: 01/10/22 EF: 60% LV Function: normal RWMA: + none Other Findings: + LVH (mild) and + diastolic dysfunction (grade 1) Valvular Disease: + MR (moderate) MV-moderate prolapse [place]-mild
[2023-10-29] MEDS ORDERED: FLUMAZENIL 0.1 MG/1 ML 10 ML VIAL IV PRN (12:58)
[2023-10-29] MEDS ORDERED: ATROPINE SULFATE 0.1 MG/ML 10ML SYR IV PRN (12:58)
[2023-10-29] MEDS ORDERED: ePHEDrine sulfate 50 MG/ML AMP IV PRN (12:58)
[2023-10-29] MEDS ORDERED: HYDROmorphone INJ 1 MG/ML SYRINGE IV PRN ×2 (12:58→16:27)
[2023-10-29] MEDS ORDERED: NALOXONE HCL 0.4 MG/1 ML VIAL/CARP IV PRN ×2 (12:58→16:27)
--- NOTE | 2023-10-29 13:15 | History & Physical Bridge Note ---
Date of Service October 29, 2023 History & Physical Bridge Note I have examined the patient, reviewed the History & Physical and in the interval since the performance of the History & Physical I have noted the following changes of clinical significance: no changes noted Lumbar decompression and fusion L4-L5 removal of hardware L3-L4
[2023-10-29] MEDS ORDERED: BUPIVACAINE/EPINEPHRINE 0.5% MPF 1:200,000 30 ML VIAL ONE (13:19)
[2023-10-29] MEDS ORDERED: FLOSEAL HEMOSTATIC MATRIX 10ML TOP ONE (14:46)
[2023-10-29] MEDS ORDERED: HYDROmorphone INJ 1 MG/ML SYRINGE ONE (14:53)
[2023-10-29] MEDS ORDERED: SUGAMMADEX SODIUM 200 MG/2 ML VIAL IV ONE (14:59)
--- NOTE | 2023-10-29 15:10 | Operative Report ---
Post Operative Report Pre & Post Diagnosis Operation Date: 10/29/23 14:05 Pre-Op Diagnosis: Lumbar Disc Herniation with Radiculopathy L4-L5 Post-Op Diagnosis: Lumbar Disc Herniation with Radiculopathy L4-L5 I identified the patient and participated in the time-out.: Yes Procedure Operation Date: 10/29/23 14:05 Actual Procedures #1 removal of posterior intralaminar instrumentation L3-L4. #2 revision decompression with bilaterally facetectomies and foraminotomies L4-5 #3 posterior spinal fusion L4-5. #4 placement posterior instrumentation L4-5 #5 interbody fusion L4-5. #6 placement of Spira 13 x 26 mm cage at L4-5. #7 placement locally harvested morselized autograft posterior gutters. #8 placement of Morpheus bone graft in the interbody space and infuse collagen sponge combined with Koros in the posterior lateral gutters. Surgeon Adan Ramirez, Physician Office Assistant Gabriella Cohen Estimated Blood Loss 50 Findings Consistent with Post-Op Diagnosis Specimens None Indications This is a 68-year-old female who presents with severe radiculopathy and inability ambulate. She is here for urgent decompression fusion. Description of Procedure Patient was met with identified informed consent obtained. Patient was then taken to the operative suite underwent a patient placed in a prone position the [place] table top [place] frame. All bony prominences well-padded eyes inspected to ensure no external pressure placed monitor at this point lumbar spine is prepped and draped in a sterile fashion. The assistance of fluoroscopy identify the L4-5 disc space. Sharp dissection with assistance bradycardia from down to and exposing the interlaminar instrumentation at L3-L4 at the lamina and transverse processes of L4-5. I then removed the interlaminar construct at L4- L5 performed a complete revision laminectomy of L4 including the facetectomies and foraminotomies as well as addressing the foraminal disc herniation on the left. After complete decompression pedicle screws were placed at L4-5 bilaterally with assistance of fluoroscopy and appropriate sized destini placed. By way of a transforaminal approach on the left complete discectomy of L4-5 was performed endplates guided to subcortically bone and a 13 x 26 mm Spira cage with Morpheus tapped in position. Rods were then compressed locked in final position bilaterally. The transverse processes of L4-5 burred to subcortical being bone. Infuse collagen sponge combined with Koros bone graft placed in the posterior gutters. 15 round ADALBERTO inserted. The incision was then closed with 1 Vicryl the fascia 2-0 Vicryl subcutaneously and 4 Monocryl for final skin closure. Steri-Strips sterile dressing placed. Patient waken taken to PACU stable condition. Please note spinal cord monitoring visualized at the procedure no changes noted. Lastly Gabriella Cohne was present at the entire surgeon while the patient positioning complex portion of the surgery and final skin closure. I attest to the content of the Intraoperative Record and any orders documented therein. Any exceptions are noted below.
--- NOTE | 2023-10-29 15:15 | Fluoroscopy Report ---
FL lumbar spine 2-3V CLINICAL HISTORY: L4-L5 DECOMPRESSION/FUSION COMPARISON STUDY: CT lumbar myelogram June 02, 2023. FLUOROSCOPY TIME: 18 seconds. Ka, r: 12.42 mGy FLUOROSCOPIC IMAGES: 2 FINDINGS: Fluoroscopy was provided during L4-L5 decompression, discectomy and pedicle screw fusion. H ardware is intact. A Coflex device is incidentally noted. IMPRESSION: Fluoroscopy provided during L4-L5 posterior decompression, discectomy and fusion. ACT 112: Negative or not required by law. Electronically signed by: Blayne Ferguson M.D. 10/29/2023 3:14 PM
[2023-10-29] MEDS: fentaNYL citrate PF 100 MCG/2 ML VIAL IV PRN ×4 (15:30→15:45)
--- NOTE | 2023-10-29 16:16 | Anesthesiology Progress Note ---
Date of Service October 29, 2023 Anesthesia Post Procedure Vital Signs Vital Signs: Temp Pulse Pulse Resp BP Pulse Ox O2 Del Method 10/29/23 15:50 70 18 114/62 93 Room Air 10/29/23 15:40 70 16 113/62 95 Room Air 10/29/23 15:30 70 18 118/80 100 Oxymask 10/29/23 15:22 36.2 C L 70 16 121/70 100 Oxymask 10/29/23 12:38 37.1 C 70 20 106/63 96 Room Air 10/29/23 07:03 36.9 C 70 14 123/80 96 Room Air 10/28/23 20:56 37.1 C 69 16 109/63 94 Room Air O2 Flow Rate 10/29/23 15:50 10/29/23 15:40 10/29/23 15:30 10 10/29/23 15:22 10 10/29/23 12:38 10/29/23 07:03 10/28/23 20:56 Pain Intensity Left Groin: Pain Intensity: 5 Left Leg: Pain Intensity: 8 Lower Back: Pain Intensity: 3 Transfer of Care Handoff Completed per policy Notes Mental Status: alert / awake / arousable Patient Amnestic to Procedure: Yes Nausea / Vomiting: adequately controlled Pain: adequately controlled Airway Patency, RR, SpO2: stable & adequate BP & HR: stable & adequate Hydration State: stable & adequate Anesthetic Complications: no major complications apparent
[2023-10-29] MEDS ORDERED: ONDANSETRON 4 MG OD TAB PO PRN (16:27)
[2023-10-29] MEDS ORDERED: ONDANSETRON INJ 2 MG/ML 2 ML VIAL IV PRN (16:27)
[2023-10-29] MEDS ORDERED: HYDROmorphone INJ 0.5 MG/0.5 ML SYR IV PRN (16:27)
[2023-10-29] MEDS ORDERED: LORazepam 0.5 MG TAB PO PRN (16:27)
[2023-10-29] MEDS ORDERED: diphenhydrAMINE Capsule 25 MG CAP PO PRN (16:27)
[2023-10-29] MEDS ORDERED: METOCLOPRAMIDE HCL INJ 5 MG/ML 2 ML VIAL IV PRN (16:27)
[2023-10-29] MEDS ORDERED: bisacodyL 10 MG SUPP PR PRN (16:27)
[2023-10-29] MEDS ORDERED: FAMOTIDINE 20 MG TAB PO PRN (16:27)
[2023-10-29] MEDS ORDERED: VANCOMYCIN CONSULT ACTIVE PRN (16:27)
[2023-10-29] MEDS ORDERED: PROMETHAZINE HCL 12.5 MG in SODIUM CHLORIDE 0.9% 50 ML IV PRN (16:27)
[2023-10-29] MEDS ORDERED: MAGNESIUM HYDROXIDE SUSP 30 ML UDC PO PRN (16:27)
[2023-10-29] MEDS ORDERED: hydrOXYzine HCl 25 MG TAB PO PRN (16:27)
[2023-10-29] MEDS ORDERED: oxyCODONE HCL IR 5 MG TAB (IMMEDIATE RELEASE) PO PRN (16:27)
[2023-10-29] MEDS ORDERED: SOD PHOSPHATE/SOD BIPHOSPHATE ENEMA 132 ML BTL PR PRN (16:27)
[2023-10-29] MEDS ORDERED: ALUMINUM/MAGNESIUM SUSP 30 ML UDC PO PRN (16:27)
[2023-10-29] MEDS ORDERED: LORazepam 0.5 MG in SYRINGE 0.25 ML IV PRN (16:27)
[2023-10-29] MEDS ORDERED: DO NOT ADMINISTER FLU VACCINE PRN (16:27)
[2023-10-29] MEDS ORDERED: traMADol HCL 50 MG TABLET PO PRN (16:27)
[2023-10-29] MEDS ORDERED: DO NOT ADMINISTER PNEUMOCOCCAL VACCINE PRN (16:27)
[2023-10-29] MEDS ORDERED: ACETAMINOPHEN 1,000 MG/100 ML VIAL IV PRN (16:27)
[2023-10-29] MEDS ORDERED: LACTATED RINGER'S 250 ML IV ONE (17:33)
[2023-10-29] MEDS: DOCUSATE SODIUM/SENNA 50/8.6MG TAB PO SCH (20:58)
[2023-10-30] MEDS: ACETAMINOPHEN 500 MG TAB PO PRN ×3 (00:35→17:00)
[2023-10-30] MEDS: LACTATED RINGER'S 1,000 ML IV SCH (02:29)
[2023-10-30] MEDS: POLYETHYLENE (MIRALAX) 17 GM PACK PO SCH ×3 (05:57→17:49)
[2023-10-30] MEDS: SOTALOL HCL 80 MG TAB PO SCH ×2 (06:15→18:00)
--- NOTE | 2023-10-30 07:57 | Hospitalist Progress Note ---
Date of Service October 30, 2023 Assessment & Plan (1) Lumbar disc herniation with radiculopathy: Plan: Worsening lumbar spine pain since twisting/turning over a week ago in her basement, went to [facility] [place] L4-L5 severe LEFT foraminal stenosis associated with left paracentral disc extrusion with cephalad migration in left lateral recess, nerve root compression. Went to Dr Ramirez's office 10/28 and sent to [facility] for direct admission. Cardiac clearance 10/29 given hx recurrent vtach/ablation/ICD s/p #1 removal of posterior intralaminar instrumentation L3-L4. #2 revision decompression with bilaterally facetectomies and foraminotomies L4-5 #3 posterior spinal fusion L4-5. #4 placement posterior instrumentation L4-5 #5 interbody fusion L4-5. #6 placement of Spira 13 x 26 mm cage at L4-5. #7 placement locally harvested morselized autograft posterior gutters. #8 placement of Morpheus bone graft in the interbody space and infuse collagen sponge combined with Koros in the posterior lateral gutters. with Dr Ramirez on 10/29. EBL 50cc Patient did have some low BP last evening, discussed w/ staffing and asymtpomatic but BP 70s systolic and 250cc NSS bolus provided and repeat BP low but asked nursing to obtain manual given other vitals stable/patient asymptomatic and was improved on manual cuff. BP 124/84 this morning, asymptomatic WBC 10.4, likley from dexamethasone. Afebrile Hgb 13.7---> 10.5, acute blood loss anemia from surgery/ADALBERTO output but also IVF/bolus overnight and suspect dilutional aspect Added VIt D to AM labs Pain control/bowel regimen per primary service PT/OT consults pending DVT proph: SCDs, amina hose, ambulation encouraged Patient actually hoping for dc tomorrow but will see how she does overnight/with therapy (2) Presence of combination internal cardiac defibrillator (ICD) and pacemaker: Plan: Hx recurrent Vtach, s/p ablation. Follows with [facility] Cardiology. Noted ICD in place. placed 2017 (for V.Tach, [employer]), 3 revisions, 2 ablations EKG ordered for pre-op clearance as well as cardiology consult. NO CP/palpitations reported consider monitored bed post-op however stable and no need at present time (3) GERD (gastroesophageal reflux disease): Plan: continue PPI BID (on omeprazole BID at home) (4) Depression: Plan: continues on duloxetine 50mg daily (suspect to help w/ baseline pain control). Prior on clonazepam but was weaned off last year Ativan available per primary for spasm/pains however doubt she will take as she tried hard to come off the clonazepam (5) Anxiety: Plan: as above Plan Thank you for allowing hospitalist service to participate in the care of Ms Matt. Hospitalist service will follow along. Please call with any questions/concerns. Admission and Anticipated Discharge Date Admission Date: October 28, 2023 Supervising Physician Co-Signing Physician Notes The patient was not seen by me. The chart was reviewed. Case discussed with KATTY Almanza. Agree with assessment and plan Subjective eval this morning Leg/back symptoms much improved. Has some incisional pain and some residual pain to legs but overall much resolved and amazed. Her strength to her LLE w/ significant improvement in plantar flexion and almost equal, slightly decreased dorsiflexion though but improved compared to yesterday. Pain controlled with ordered medications. Eating/drinking without issue. Passing gas, taking miralax. She is hopeful for possible dc tomorrow but will see how she does. She got up to use restroom this morning w/ walker. Going to ambulate in the halls this afternoon/evening with her . No fever/chills, chest pain, shortness of breath, palpitations at present. No lightheaded/dizziness w/ BPs yesterday and stable today. Questions/concerns addressed at this time,. Physical Exam 2 Physical Exam: General: 68yo female sitting up in bed, MUCH improved appearing, NAD Head atraumatic, normocephalic, trachea midline Resp diminished in the bases but no w/c/r, on room air CV: rrr, diastolic murmur, no pitting edema, teds in place, pulses palpable, no calf tenderness GI: +BS, soft/slight distension, NONTENDER no matthews MSK/Neuro: dressing c/d/i, ADALBERTO w/ ~75cc bloody drainage, dorsiflexion/plantar flexion MUCH improved on the left compared to the right. Full strength on the right. NVI, toes mobile Psych: AOx3, cooperative with exam Results & Data Results & Data Vital Signs (Past 12 Hours) Vital Signs Temp Pulse Pulse Resp BP BP Pulse Ox 10/30/23 07:51 36.6 C 70 16 124/84 97 10/30/23 04:59 36.9 C 70 14 98/61 L 95 10/30/23 00:00 36.5 C 70 16 95/56 L 96 10/29/23 22:00 O2 Del Method 10/30/23 07:51 Room Air 10/30/23 04:59 Room Air 10/30/23 00:00 Room Air 10/29/23 22:00 Room Air Laboratory Results 10/30/23 07:09 10/30/23 07:09 Diagnostic Findings Lumbar Spine X-Ray 10/29/23 07:44 FL lumbar spine 2-3V CLINICAL HISTORY: L4-L5 DECOMPRESSION/FUSION COMPARISON STUDY: CT lumbar myelogram June 02, 2023. FLUOROSCOPY TIME: 18 seconds. Ka, r: 12.42 mGy FLUOROSCOPIC IMAGES: 2 FINDINGS: Fluoroscopy was provided during L4-L5 decompression, discectomy and pedicle screw fusion. Hardware is intact. A Coflex device is incidentally noted. IMPRESSION: Fluoroscopy provided during L4-L5 posterior decompression, discectomy and fusion. ACT 112: Negative or not required by law. Electronically signed by: Blayne Ferguson M.D. 10/29/2023 3:14 PM PG Care Time/CCT Total # of Minutes Spent Total Time Spent with Patient: Total time spent is greater than 50% in coordination of care (as documented) at patient's floor/unit and/or counseling patient: Coding Level of Care Code 31385 SUB INP/OBS CARE 2/35MIN Diagnoses Lumbar disc herniation with radiculopathy M51.16 Presence of combination internal cardiac defibrillator (ICD) and pacemaker Z95.810 Gastroesophageal reflux disease, unspecified whether esophagitis present K21.9 Esophagitis presence: esophagitis presence not specified Major depressive disorder, remission status unspecified, unspecified whether recurrent F32.9 Active/Remission status: remission status unspecified Depression Type: major depressive disorder Major depression recurrence: unspecified whether recurrent Anxiety F41.9 (3) GERD (gastroesophageal reflux disease) Esophagitis presence: esophagitis presence not specified Qualified Code(s): K 21.9 - Gastro-esophageal reflux disease without esophagitis (4) Depression Active/Remission status: remission status unspecified Depression Type: major depressive disorder Major depression recurrence: unspecified whether recurrent Qualified Code(s): F32.9 - Major depressive disorder, single episode, unspecified
[2023-10-30] MEDS: GABAPENTIN 400 MG CAP PO SCH ×2 (08:04→20:46)
[2023-10-30] MEDS: DULoxetine HCL 60 MG CAP PO SCH (08:04)
[2023-10-30] MEDS: dexAMETHasone 6 MG in SYRINGE 0 ML IV SCH (08:04)
[2023-10-30] MEDS: buprenorphine HCL 8 MG SUBL SL SCH ×3 (08:04→20:47)
[2023-10-30] MEDS: PANTOprazole 40 MG TAB PO SCH ×2 (08:04→20:46)
[2023-10-30 08:15] LABS: Calcium 8.5 mg/dl (8.6-10.3); Magnesium 1.7 mg/dl (1.7-2.4)
[2023-10-30 08:21] LABS: Creatinine Clr Calc Pharmacy 101.2 ml/min; Est GFR (African American) 111.5 ml/min; Est GFR (Non-African American) 96.2 ml/min
[2023-10-30] MEDS ORDERED: MAGNESIUM SULFATE / D5W 1 GM/100 ML BAG IV ONE (08:38)
[2023-10-30 09:17] LABS: Basophils # (auto) 0.01 K/uL (0.00-0.20); Basophils % (auto) 0.1 %; Hematocrit (blood only) 32.3 % (37.0-47.0); Hemoglobin 10.5 g/dl (12.0-16.0); Immature Granulocytes # (auto) 0.04 K/uL (0.01-0.20); Immature Granulocytes % (auto) 0.4 %; Lymphocytes # (auto) 1.33 K/uL (1.20-3.40); Lymphocytes % (auto) 12.7 %; Mean Corpuscular Hemoglobin 31.4 pg (25.0-34.0); Mean Corpuscular Hgb Conc 32.5 g/dL (32.0-36.0); Mean Corpuscular Volume 96.7 fL (80.0-100.0); Mean Platelet Volume 9.7 fL (9.4-12.4); Monocytes # (auto) 0.92 K/uL (0.11-0.59); Monocytes % (auto) 8.8 %; Neutrophils # (auto) 8.14 K/uL (1.40-6.50); Platelet Count 196 K/uL (130-400); RDW Coefficient of Variation 12.3 % (11.5-14.5); RDW Standard Deviation 43.5 fL (36.4-46.3); Red Blood Count 3.34 M/uL (4.20-5.40); White Blood Count 10.44 K/ul (4.8-10.8)
--- NOTE | 2023-10-30 13:05 | Orthopedic Progress Note ---
Date of Service October 30, 2023 Assessment & Plan (1) Lumbar disc herniation with radiculopathy: Plan: At this time we will continue physical therapy monitor ADALBERTO output with discharge home next few days. Admission and Anticipated Discharge Date Admission Date: October 28, 2023 Subjective Back pain controlled leg pain markedly improved Physical Exam Physical Exam: Patient is very comfortable. Discussed when to testing. Results & Data Vital Signs (Past 12 Hours) Vital Signs Temp Pulse Pulse Resp BP Pulse Ox O2 Del Method 10/30/23 11:23 36.6 C 71 16 118/58 L 98 Room Air 10/30/23 07:51 36.6 C 70 16 124/84 97 Room Air 10/30/23 04:59 36.9 C 70 14 98/61 L 95 Room Air
[2023-10-30] MEDS: DOCUSATE SODIUM/SENNA 50/8.6MG TAB PO SCH (20:46)
[2023-10-31] MEDS: POLYETHYLENE (MIRALAX) 17 GM PACK PO SCH ×5 (00:10→23:27)
[2023-10-31] MEDS: ACETAMINOPHEN 500 MG TAB PO PRN ×3 (00:49→20:04)
[2023-10-31] MEDS: SOTALOL HCL 80 MG TAB PO SCH ×2 (05:53→18:34)
--- NOTE | 2023-10-31 08:04 | Hospitalist Progress Note ---
Date of Service October 31, 2023 Assessment & Plan (1) Lumbar disc herniation with radiculopathy: Plan: Worsening lumbar spine pain since twisting/turning over a week ago in her basement, went to [place] [facility] CT spine at [place] noting L4-L5 severe LEFT foraminal stenosis associated with left paracentral disc extrusion with cephalad migration in left lateral recess, nerve root compression. Went to Dr Ramirez's office 10/28 and sent to [facility] for direct admission. Cardiac clearance 10/29 given hx recurrent vtach/ablation/ICD s/p #1 removal of posterior intralaminar instrumentation L3-L4. #2 revision decompression with bilaterally facetectomies and foraminotomies L4-5 #3 posterior spinal fusion L4-5. #4 placement posterior instrumentation L4-5 #5 interbody fusion L4-5. #6 placement of Spira 13 x 26 mm cage at L4-5. #7 placement locally harvested morselized autograft posterior gutters. #8 placement of Morpheus bone graft in the interbody space and infuse collagen sponge combined with Koros in the posterior lateral gutters. with Dr Ramirez on 10/29. EBL 50cc WBC elevation suspected 2nd to steroids, afebrile Hgb 13.7--> 10.5, acute blood loss anemia from surgery/dilutional aspect from surgery. ADALBERTO output slowed, no CP/SOB/lightheaded/dizziness Pain control/bowel regimen/PT/OT per primary service DVT proph: SCDs, amina hose. Has been ambulating the russell Patient having a little increased incisional pain today but leg symptoms much improved. Per primary, planning on monitoring overnight/pain control and planning for discharge tomorrow morning (patient hoping before noon) (2) Presence of combination internal cardiac defibrillator (ICD) and pacemaker: Plan: Hx recurrent Vtach, s/p ablation. Follows with [facility] Cardiology. Noted ICD in place. placed 2017 (for V.Tach, [employer]), 3 revisions, 2 ablations EKG ordered for pre-op clearance as well as cardiology consult -- patient should have f/u cards (or PCP) about repeating ECHO given her mitral regurgitation for monitoring NO CP/palpitations reported, HRs remaining stable (3) GERD (gastroesophageal reflux disease): Plan: continue PPI BID (on omeprazole BID at home). No increased issues reported (4) Depression: Plan: continues on duloxetine 50mg daily (suspect to help w/ baseline pain control). Prior on clonazepam but was weaned off last year Ativan available per primary for spasm/pains however doubt she will take as she tried hard to come off the clonazepam (5) Anxiety: Plan: as above Plan Thank you for allowing hospitalist service to participate in the care of Ms Matt. Patient planning for discharge tomorrow, hopefully before noon. Hospitalist service will chart check in AM/please call with any questions/concerns. Admission and Anticipated Discharge Date Admission Date: October 28, 2023 Supervising Physician Co-Signing Physician Notes The patient was not seen by me. The chart was reviewed. Case discussed with KATTY Almanza. Agree with assessment and plan Subjective eval this morning, doing well as far as leg symptoms concerned but having a little increased incisional discomfort and discussed w/ Dr Ramirez and planning to keep overnight and plan for dc tomorrow. Ambulating the halls, passing lots of gas. Chronic GI issues and would like to have BM prior to dc. Continued ambulation/pain control. No fever/chills, chest pain, shortness of breath, nausea or other issues at this time reported. Questions/concerns addressed at this time. Physical Exam Physical Exam: General: 68yo female sitting up in bed, NAD Head atraumatic, normocephalic, trachea midline, slight flushed appearance to cheeks Resp diminished in the bases but no w/c/r, on room air CV: rrr, diastolic murmur, no pitting edema, teds in place, pulses palpable, no calf tenderness GI: +BS, soft/slight distension, NONTENDER no matthews MSK/Neuro: dressing c/d/i, some faint shawdowing, ADALBERTO w/ serosanginous drainage strength testing to b/l LE much improved, equal dorsiflexion/plantar flexion, sensation intact, toes mobile, calves nontender Psych: AOx3, cooperative with exam Results & Data Results & Data Vital Signs (Past 12 Hours) Vital Signs Temp Pulse Resp BP Pulse Ox O2 Del Method 10/31/23 07:22 36.9 C 73 16 122/70 95 Room Air 10/30/23 20:17 36.7 C 78 14 108/70 97 Room Air PG Care Time/CCT Total # of Minutes Spent Total Time Spent with Patient: Total time spent is greater than 50% in coordination of care (as documented) at patient's floor/unit and/or counseling patient: Coding Level of Care Code 60634 SUB INP/OBS CARE 11/12MIN Diagnoses Lumbar disc herniation with radiculopathy M51.16 Presence of combination internal cardiac defibrillator (ICD) and pacemaker Z95.810 Gastroesophageal reflux disease, unspecified whether esophagitis present K21.9 Esophagitis presence: esophagitis presence not specified Major depressive disorder, remission status unspecified, unspecified whether recurrent F32.9 Active/Remission status: remission status unspecified Depression Type: major depressive disorder Major depression recurrence: unspecified whether recurrent Anxiety F41.9 (3) GERD (gastroesophageal reflux disease) Esophagitis presence: esophagitis presence not specified Qualified Code(s): K21.9 - Gastro-esophageal reflux disease without esophagitis (4) Depression Active/Remission status: remission status unspecified Depression Type: major depressive disorder Major depression recurrence: unspecified whether recurrent Qualified Code(s): F32.9 - Major depressive disorder, single episode, unspecified
--- NOTE | 2023-10-31 08:33 | Orthopedic Progress Note ---
Date of Service October 31, 2023 Assessment & Plan (1) Lumbar disc herniation with radiculopathy: Plan: We will continue physical therapy today monitor ADALBERTO output anticipate discharge home tomorrow. Admission and Anticipated Discharge Date Admission Date: October 28, 2023 Subjective Back pain is controlled leg pain markedly improved Physical Exam Physical Exam: Patient is good strength testing. Appears comfortable. Results & Data Vital Signs (Past 12 Hours) Vital Signs Temp Pulse Resp BP Pulse Ox O2 Del Method 10/31/23 07:22 36.9 C 73 16 122/70 95 Room Air
[2023-10-31] MEDS: DULoxetine HCL 60 MG CAP PO SCH (09:24)
[2023-10-31] MEDS: GABAPENTIN 400 MG CAP PO SCH ×2 (09:25→20:04)
[2023-10-31] MEDS: PANTOprazole 40 MG TAB PO SCH ×2 (09:25→20:04)
[2023-10-31] MEDS: buprenorphine HCL 8 MG SUBL SL SCH ×3 (09:31→20:04)
[2023-10-31] MEDS: dexAMETHasone 6 MG in SYRINGE 0 ML IV SCH (12:02)
[2023-10-31] MEDS: DOCUSATE SODIUM/SENNA 50/8.6MG TAB PO SCH (20:03)
[2023-11-01] MEDS: ACETAMINOPHEN 500 MG TAB PO PRN (04:20)
[2023-11-01] MEDS: POLYETHYLENE (MIRALAX) 17 GM PACK PO SCH (05:58)
[2023-11-01] MEDS: SOTALOL HCL 80 MG TAB PO SCH (05:58)
[2023-11-01] MEDS: buprenorphine HCL 8 MG SUBL SL SCH (08:32)
[2023-11-01] MEDS: DULoxetine HCL 60 MG CAP PO SCH (08:33)
[2023-11-01] MEDS: GABAPENTIN 400 MG CAP PO SCH (08:33)
[2023-11-01] MEDS: dexAMETHasone 6 MG in SYRINGE 0 ML IV SCH (08:33)
[2023-11-01] MEDS: PANTOprazole 40 MG TAB PO SCH (08:33)
--- NOTE | 2023-11-01 09:46 | Communication Note ---
Date of Service: November 01, 2023 Stopped by to see patient. Pain controlled w/ ordered meds. Had a little nausea/zofran overnight. She has rx for this at home. +BM. BP borderline but dario und what it has been. No CP/SOb/palpitations. She is due for device check and discussed should have appt w/ PSH Dr Nickerson from cards for repeat ECHO given her mitral regurgitation for monitoring. She states she is ready for discharge today. Would like flu/pneumococcal vaccination, RN to provide. Dispo per primary service. She also has EMG/neuro studies this upcoming Nov for periodic limb movements at times that has been ongoing issue. Rec to discuss checking ferritin with patient in follow up with PCP to ensure not deficient/contribtuing. Please call hospitalist group with any questions/concerns.
[2023-11-01] MEDS ORDERED: INFLUENZA VACCINE HIGH-DOSE (HD-IIV4) PF 65+ 0.7mL SYR IM ONE (10:44)
[2023-11-01] MEDS ORDERED: PNEUMOCOCCAL VACCINE (PCV20) 20-VAL CONJ-DIP CRM/PF 0.5 ML SYR IM ONE (10:44)
--- NOTE | 2023-11-01 10:51 | Discharge Summary ---
Date of Service November 01, 2023 Admission HPI Per Admitting Provider This is a 68-year-old female known to the presents with 2 weeks of excruciating left leg pain. She states it begins in the left buttock posterior lateral thigh extending to the anterior knee anterior tibia into her ankle. She denies any significant trauma fall or event. The right lower extremity asymptomatic. She has been in the ER 2 times for pain control and management. She has been unable to sleep. Ambulation is all but impossible secondary to the pain. Principal Diagnosis Lumbar discrimination with radiculopathy Discharge Data Allergies Allergy/AdvReac Type Severity Reaction Status Date / Time levofloxacin Allergy Severe per Verified 08/26/23 11:08 disc recordist to list for allergy d/t ? Vtach clindamycin Allergy Intermediate Nausea Verified 08/26/23 11:08 amoxicillin Allergy Mild RASH Verified 08/26/23 11:08 cephalexin Allergy Mild HIVES Verified 08/26/23 11:08 clavulanic acid Allergy Mild RASH Verified 08/26/23 11:08 prochlorperazine Allergy Mild DISORIENTED Verified 08/26/23 11:08 droperidol AdvReac Intermediate Pt. states Verified 08/26/23 11:08 medication made her "jumpy & unsettled." ketorolac [From Toradol] AdvReac Intermediate Pt. states Verified 08/26/23 11:08 medication made her "jumpy & unsettled." metoclopramide [From Reglan] AdvReac Intermediate Pt. states Verified 08/26/23 11:08 medication made her "jumpy & unsettled." Consultations 10/28/23 15:33 Consult Internal Medicine Routine 10/28/23 17:21 Consult Cardiology Routine Procedures Performed Operation Date: 10/29/23 14:05 Actual Procedures p L4-L5 Lumbar Decompression and Fusion with Application of Bone Morphogenetic Protein, MagnetOS and IFactor Bone Graft, Spinal Cord Monitoring(Not Applicable) - Adan Ramirez DO s Removal Hardware L3-L4(Not Applicable) - Adan Ramirez DO Ordered Studies 10/29/23 07:44 FL lumbar spine 2-3V Routine Hospital Course (1) Lumbar disc herniation with radiculopathy: Patient was admitted with severe radiculopathy underwent emergent surgery the following day. She tolerated this well was taken to orthopedic floor postoperatively postoperatively she progressed appropriate. Leg pain markedly improved. Strength improved. ADALBERTO drain decreasing well and subsequently discharged home. Discharge orders instructions from the chart for aleyda maribel mcknight. Total Time Total Time Spent Total Time Spent (In Minutes): 20 minutes Discharge Plan Discharge Items Patient Disposition: Home - Self-Care Reason For Visit: LUMBAR HYNERATION L4/L5 L SIDE, PAIN CONTROL Discharge Diagnosis: Lumbar disc herniation with radiculopathy Activity: As commented below Non-emergency contact: Primary Care Provider Call non-emergency contact if: you have any medication questions Follow-up/Referrals: Josiah Mcknight DO [Primary Care Provider] - Diet: Regular Addtl Attending Provider Instructions: ACTIVITY RECOMMENDATIONS: SELF CARE INSTRUCTIONS AFTER THORACIC/LUMBAR FUSIONS 1. You may walk to your tolerance. It is good exercise for your legs and back. Expect some back and intermittent leg aches and pains. 2. You may perform "counter-top" level activities (make a sandwich, quinn with a project, etc.). 3. No bending or lifting of more than 10 pounds or back twisting of any nature (roll like a log when turning in bed). 4. You may ride in a car for 20-30 minutes at a time. No driving until after your first visit with your doctor. 5. Frequent changes of position and restricting sitting to 30 minutes at a time will help limit the amount of back spasms and stiffness you may experience. 6. You may discontinue the use of ambulatory aids (cane, crutches, etc.) once your strength and confidence allow. 7. You may care trainer the shower and let water strike your incision when you arrive home at least once daily. Do not take a tub bath, sit in a hot tub or go into a swimming pool until after your first recheck in the office. SPECIAL CARE INSTRUCTIONS: VERY IMPORTANT TO READ AND REVIEW A. Your surgical incision has been closed with a cosmetic suture under the skin that will dissolve in about 6 weeks. In 14 days, you can use a pair of clean scissors and cut the suture that is left outside of the skin at the ends of your incision. 1. The small skin tapes can be removed 7 days after surgery if they have not fallen off by that point. 2. You may keep the wound open to air as much as possible to promote healing after post-op day number 5 unless told otherwise by your doctor. 3. If you think the wound looks like it is becoming infected (redness or worsening drainage) and/or you are experiencing fever, chill or worsening back pain and muscle spasms, contact the office so that we may evaluate you as soon as possible. B. Complications are uncommon, but please contact us if you have any signs or symptoms of: 1. wound infection (fever higher than 102.5 degrees F, redness, separation of wound, drainage, or increasing pain from the incision) 2. blood clots in legs (pain, swelling, redness and warmth in legs) 3. urinary tract infection (fever higher than 102.5 degrees F, burning upon urination or increased frequency of urination) 4. nerve problems (inability to walk on your toes or heels, numbness, loss of bowel or bladder control) 5. any other symptoms that concern you C. Please call the office at if you have any concerns or questions about your operation or recovery. D. No smoking! Smoking drastically decreases the chance of a solid fusion. E. Do not take any anti-inflammatory medications (Indocin, Advil, Motrin, Aspirin, Naprosyn, etc.) as these may inhibit the chance of a solid fusion. Tylenol is okay to take for pain. MANAGING PAIN AFTER SPINAL SURGERY 1. Narcotic medication is intended for short-term use and will be provided for surgical pain. Surgical pain usually lasts for a period of 4-6 weeks. Narcotic medication includes Percocet, Vicodin, Darvocet, Tylenol #3 or Lortab. 2. Longer-term pain is more appropriately treated with non-narcotic medication such as Tylenol ES. 3. Muscle spasm is not appropriately treated with narcotics. Muscle relaxers such as Soma, Flexeril or Skelaxin can be used along with Tylenol ES. 4. Remember that we all live with some "aches and pains". This is not unusual or uncommon after an injury or as we get older. a. Back pain is expected and may include muscle spasms for 4 to 6 weeks after surgery. The pain should gradually improve. If the pain worsens for no apparent reason, please contact the office. b. Intermittent leg pain may also be experienced and should not be concerned about unless it worsens for no apparent reason. If so, please contact the office. 5. We will provide appropriate medication within the normal guidelines of their prescribed use. We will also be very cautious and aware of potential abuse and extended duration of patients' medication needs. a. Pain medications are for your comfort and to assist with sleep and rest so that the tissue can heal. They are not provided in order to return to normal activity and should not be used through the day. To do so or worsening pain at night can result from ongoing tissue damage and develo pment of tolerance to the prescribed medicine. 6. Please allow 2-3 days to process refills. Prescriptions will not be mailed but must be picked up at the office. FOLLOW UP VISIT: Keep your scheduled follow-up appointment. Any questions, please call the office at . Addtl [employer] Clinical Programmer Provider Instructions: You should follow up with cardiology for routine echocardiogram to monitor your mitral regurgitation as well as your device check. You should discuss checking ferritin level with primary care to see if contributing to periodic movements as described. Pending Studies at Discharge: No Stand-Alone Forms: [facility], Smoking Cessation Medications and DC Order Prescriptions: Continued albuterol sulfate [Ventolin HFA] 90 mcg/actuation HFA aerosol inhaler 2 puff inhalation QID PRN (Reason: shortness of breath or wheezing) Qty: 18 2RF (DME) LUMBAR SUPPORT BACK BRACE Misc See Rx Instructions .Route Qty: 1 0RF Rx Instructions: As directed hydrocortisone [Proctosol HC] 2.5 % cream with perineal applicator 1 applic WI DAILY PRN (Reason: hemorrhoids) Qty: 30 1RF ondansetron 4 mg tablet,disintegrating 4 mg PO Q8H PRN (Reason: NAUSEA/VOMITING) Patient Comments: prescribed by [facility] 10/05/23 duloxetine [Cymbalta] 60 mg capsule,delayed release(DR/EC) 60 mg PO QAM Qty: 90 0RF molnupiravir 200 mg capsule 800 mg PO Q12H 5 Days Qty: 40 0RF Rx Instructions: sx started 4 days ago. gfr 90 omeprazole 20 mg capsule,delayed release(DR/EC) 20 mg PO BID Qty: 180 0RF cyclobenzaprine 10 mg tablet 10 mg PO TID Patient Comments: [facility] prednisone 20 mg tablet See Rx Instructions PO .COMPLEX [facility]: 2 pills daily for 5 days then 1 pill daily next 5 days albuterol sulfate 1.25 mg/3 mL solution for nebulization 1.25 mg inhalation QID PRN (Reason: sob) gabapentin 300 mg capsule See Rx Instructions .ROUTE .COMPLEX Rx Instructions: 400mg bid orally ;one capsule in AM and one in PM coenzyme Q10 [Co Q-10] 100 mg capsule 100 mg PO DAILY nystatin 500,000 unit tablet 500,000 unit PO TID cholecalciferol (vitamin D3) 125 mcg (5,000 unit) capsule 125 mcg PO DAILY buprenorphine HCl 8 mg tablet, sublingual 8 mg sublingual DAILY Rx Instructions: 1/2 tablet + 1/8 tablet (5mg) mecobalamin (vitamin B12) 1,000 mcg tablet,chewable 1,000 mcg PO DAILY magnesium hydroxide 1,200 mg tablet,chewable PO Rx Instructions: 1000 mg daily sotalol 160 mg tablet 160 mg PO BID Rx Instructions: takes 0630 and 1830- must keep schedule fluticasone propionate [Flonase Allergy Relief] 50 mcg/actuation sp ray,suspension 1 spray intranasal BID PRN (Reason: Congestion) Rx Instructions: administer into each nostril Gaviscon 95-358 mg/15 mL suspension 15 ml PO DAILY PRN (Reason: Gi Upset) azelastine 137 mcg (0.1 %) aerosol,spray 2 spray INTRANASAL QAM PRN (Reason: Congestion) metronidazole 1 % gel with pump 1 applic topical DAILY Qty: 55 0RF aloe vera 25 mg capsule 50 mg PO BID Qty: 60 0RF Hold Instructions: GI testing loratadine [Claritin] 10 mg tablet 10 mg PO QAM [id number] [Esgic] 50-325-40 mg tablet 1 tab PO Q4H PRN (Reason: headache) Discharge Orders: Discharge Order (Routine); Ordered 11/01/23 Ordered By: Adan Ramirez Admission Data Admit Date/Time: 10/28/23 14:50 Attending Provider: Adan Ramirez Admit Provider: Adan Ramirez Primary Care Provider: Josiah Mcknight Other Providers: Yordan Henderson; Marty Medeiros
== END 2023-11-01 12:58 | disposition home or self-care (01) | DRG 454 ==
LOC: 3W 14:50